=== PATIENT | male | born 1995 ===

== ENCOUNTER 2017-05-17 15:46 | Inpatient (IN) ==
[2017-05-17 16:42] LABS: Basophils % 0.1 %; Eosinophils % 0.2 %; Hematocrit 41.2 % (37.5-50.1); Hemoglobin 13.7 g/dL (12.9-16.9); Immature Granulocytes % 0.3 % (0-4); Lymphocytes # 0.9 K/mcL (0.6-4.6); Lymphocytes % 7.2 %; Mean Corpuscular HGB Conc 33.3 g/dL (31.6-35.5); Mean Corpuscular Hemoglobin 30.9 pg (28.0-33.3); Mean Platelet Volume 9.9 fL (9.4-12.4); Neutrophils # 10.5 K/mcL (1.6-8.9); Platelet Count 252 K/mcL (140-400); Red Blood Count 4.43 M/mcL (4.19-5.50); Red Cell Distribution Width 12.9 % (11.5-14.5); Segmented Neutrophils % 84.2 %
[2017-05-17 16:43] LABS: Bilirubin,Urine Negative (Negative); Blood,Urine Trace (Negative); Clarity,Urine Clear (Clear); Color,Urine Yellow (Yellow); Glucose,Urine (UA) Normal (Normal); Ketones,Urine Trace mg/dL (Negative); Leukocyte Esterase,Urine Negative (Negative); Nitrite,Urine Negative (Negative); Protein,Urine Negative (Neg-Trace); Specific Gravity,Urine 1.021 (1.010-1.025); Urobilinogen,Urine Normal (Normal)
[2017-05-17 16:44] LABS: Bacteria,Urine None Seen per hpf (None-Few); Hyaline Casts,Urine None Seen per lpf (None-Few); RBC,Urine 0-3 per hpf (0-3); Squamous Epithelial Cell,Urine Moderate per lpf (None-Few); WBC,Urine 0-3 per hpf (0-3)
[2017-05-17 17:01] LABS: Alanine Aminotransferase 23 Units/L (0-55); Albumin 3.8 g/dL (3.5-5.0); Albumin/Globulin Ratio 0.8 (1.1-2.2); Alkaline Phosphatase 144 Units/L (38-126); Aspartate Amino Transferase 20 Units/L (5-34); BUN/Creatinine Ratio 13 (6-26); Bilirubin,Direct 0.3 mg/dL (0.0-0.5); Bilirubin,Indirect 0.3 mg/dL (0.0-1.2); Bilirubin,Total 0.6 mg/dL (0.2-1.2); Blood Urea Nitrogen 12 mg/dL (8-26); Carbon Dioxide 25 mEq/L (19-29); Chloride 102 mEq/L (98-109); Globulin 4.7 g/dL (2.4-3.5); Glucose 107 mg/dL (70-99); Lipase 17 Units/L (8-78); Osmolality,Calculated 284 (280-300); Potassium 3.9 mEq/L (3.5-4.5); Sodium 137 mEq/L (136-145); Total Protein 8.5 g/dL (6.0-8.3); eGFR For African Americans > 60; eGFR For Non-African Americans > 60
[2017-05-17] MEDS ORDERED: Ondansetron 4 MG/2 ML VIAL IVP ONE (18:32)
[2017-05-17] MEDS ORDERED: Pantoprazole 40 MG VIAL IVP ONE (18:32)
[2017-05-17] MEDS ORDERED: 0.9 % Sodium Chloride 1,000 ML IVC ONE (18:32)
[2017-05-17] MEDS ORDERED: *HR* FentaNYL (PF) 100 MCG/2 ML VIAL IVP ONE (18:34)
[2017-05-17] MEDS ORDERED: Piperacillin/Tazobactam 3.375 GM in D5% in Water (Mini-Bag+) 100 ML IVPB ONE (19:20)
[2017-05-17] MEDS ORDERED: *HR* HYDROmorphone (PF) 1 MG/ML SYRINGE IVP ONE (19:20)
--- NOTE | 2017-05-17 19:20 | Emergency Department Note ---
Disposition Clinical Impression: Acute appendicitis with appendiceal abscess Acute appendicitis Qualifiers: Acute appendicitis type: with localized peritonitis Qualified Code(s): K35.3 - Acute appendicitis with localized peritonitis Disposition: Admitted As Inpatient Condition: Fair Time of Disposition: 20:04 Abdominal Pain HPI - General Chief Complaint: ED Abdominal Pain Stated Complaint: abd pain Time Seen by Provider: 05/17/17 17:24 Source: patient Nursing Notes Reviewed: Yes Vital Signs Reviewed: Yes - History of Present Illness HPI Narrative: Patient is 21-year-old male who presents with right lower quadrant abdominal pain 4 days. Patient states that pain started suddenly while he was at a gym. Patient states she has never had pain like this before. Patient does not speak American. 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 Patient states his pain is 8/10 sharp and constant. Patient complains of anorexia. Last meal was 7:00 this morning. Pain Scale: 8 - Related Data Home Medications Medication Instructions Recorded Confirmed No Known Home Drugs 05/17/17 05/17/17 Allergies Allergy/AdvReac Type Severity Reaction Status Date / Time No Known Allergies Allergy Verified 05/17/17 15:55 All systems ED: reviewed and negative except as stated. Review of Systems: As Per HPI Constitutional: Denies: fever, chills ENT ED: Denies: congestion Cardiovascular: Denies: chest pain, palpitations Respiratory: Denies: cough Gastrointestinal: Reports: abdominal pain, nausea, diarrhea, hematochezia. Denies: vomiting Musculoskeletal: Denies: back pain, neck pain Integumentary: Denies: rash Endocrine: Reports: fatigue Abdominal Pain PMH - Past Medical History Medical history: Reports: no medical history - Social History Smoking status: Never smoker Alcohol use: Reports: occasionally Drug use: Reports: none Physical Exam Vital Signs Temperature 98.8 F 05/17/17 15:48 Pulse Rate 95 05/17/17 15:48 Respiratory Rate 18 05/17/17 15:48 Blood Pressure 113/73 05/17/17 15:48 O2 Sat by Pulse Oximetry 100 05/17/17 15:48 Temperature 98.8 F 05/17/17 15:48 Pulse Rate 98 05/17/17 19:41 Respiratory Rate 18 05/17/17 19:41 Blood Pressure 117/73 05/17/17 19:41 O2 Sat by Pulse Oximetry 99 05/17/17 19:41 Oxygen Delivery Oxygen Delivery Room Air Patient is a 21-year-old male who is alert and oriented 3 and is laying in the bed still and has a sense of apprehension on his face. Patient is nontoxic appearing, patient is currently afebrile and not tachycardic or hypotensive. Abdominal exam: Bowel sounds present, abdomen rigid to palpation on the right side, and patient has muscular and is guarding. - General Limitations: no limitations General appearance: alert, in no apparent distress - Head Head exam: atraumatic, normocephalic, normal inspection - Eye Eye exam: Present: normal appearance, PERRL, EOMI - ENT ENT exam: normal exam, normal oropharynx, mucous membranes moist - Neck Neck exam: Present: normal inspection, full ROM, trachea midline - Chest Chest inspection: Present: normal inspection, symmetric chest wall rise - Respiratory Respiratory exam: Present: normal lung sounds bilaterally - Cardiovascular Cardiovascular exam: Present: regular rate, normal rhythm, normal heart sounds - Abdominal Exam Abdominal exam: Present: soft, tenderness, guarding, rigidity (Right-side of abdomen), normal bowel sounds, hyperactive bowel sounds. Absent: distention, rebound - Extremities Exam Extremities exam: Present: normal inspection, full ROM. Absent: tenderness, pedal edema, joint swelling, calf tenderness - Back Exam Back exam: Present: normal inspection, full ROM. Absent: tenderness, CVA tenderness (R), CVA tenderness (L) - Neurological Exam Neurological exam: Present: alert, oriented X3 - Psychiatric Psychiatric exam: Present: normal affect, normal mood - Skin Skin exam: Present: warm, dry, intact, normal color Course - Consultations Consultation #1: Dr. Khan of Gen. surgery was consulted for ruptured appendix with large abscess in the right lower quadrant. He states to admit to medicine and have them consult him for orders. Time: 19:22 Vital Signs Temperature 98.8 F 05/17/17 15:48 Pulse Rate 95 05/17/17 15:48 Respiratory Rate 18 05/17/17 15:48 Blood Pressure 113/73 05/17/17 15:48 O2 Sat by Pulse Oximetry 100 05/17/17 15:48 Temperature 98.8 F 05/17/17 15:48 Pulse Rate 98 05/17/17 19:41 Respiratory Rate 18 05/17/17 19:41 Blood Pressure 117/73 05/17/17 19:41 O2 Sat by Pulse Oximetry 99 05/17/17 19:41 Oxygen Delivery Oxygen Delivery Room Air Abdominal Pain - MDM Narrative Medical decision making narrative: Patient presents with right lower quadrant abdominal pain onset 4 days ago. Patient has a rigid right sided abdomen. CT abdomen and pelvis shows Abdomen/Pelvis CT 05/17/17 18:57 IMPRESSION: Extensive inflammatory changes in the right lower quadrant involving the appendix and likely the cecum. Acute appendicitis is likely. It is difficult to distinguish between the cecum and appendix as there is a large phlegmonous mass in this area and possible fluid collection which is difficult to distinguish between a patulous cecum versus abscess. Without GI contrast this area is difficult to evaluate. Some free fluid can be seen in the pelvis. D/ / 05/17/2017 19:37:46 Isabel Larson MD / karen Interpreting Provider: MD Dr. Erin Estrada of Gen. surgery was consulted and has directed patient to be admitted to medicine. He states to have the floor consult him for any orders. Patient needs a recreation therapy director secondary to being king [place] Romansh speaker only. Patient has been told of the results of his workup and accepts decision for admission. Romansh-speaking emergency response technician at bedside. Patient is accepted for admission by Dr. Sen the hospitalist - Lab Data Lab results reviewed: Yes I reviewed the patient's lab results. Lab results narrative: Short CBC 05/17/17 Range/Units 16:25 WBC 12.4 H (4.3-11.1) K/mcL Hgb 13.7 (12.9-16.9) g/dL Hct 41.2 (37.5-50.1) % Plt Count 252 (140-400) K/mcL Neutrophils # 10.5 H (1.6-8.9) K/mcL BMP 05/17/17 Range/Units 16:25 Sodium 137 (136-145) mEq/L Potassium 3.9 (3.5-4.5) mEq/L Chloride 102 (98-109) mEq/L Carbon Dioxide 25 (19-29) mEq/L BUN 12 (8-26) mg/dL Creatinine 0.90 (0.72-1.25) mg/dL Glucose 107 H (70-99) mg/dL Calcium 10.0 (8.6-10.8) mg/dL Liver Function 05/17/17 Range/Units 16:25 Total Bilirubin 0.6 (0.2-1.2) mg/dL Direct Bilirubin 0.3 (0.0-0.5) mg/dL AST 20 (5-34) Units/L ALT 23 (0-55) Units/L Alkaline Phosphatase 144 H (38-126) Units/L Albumin 3.8 (3.5-5.0) g/dL Urine 05/17/17 Range/Units 16:30 Urine Color Yellow (Yellow) Urine Clarity Clear (Clear) Urine pH 6.0 (5.0-8.0) pH Units Ur Specific Vivian 1.021 (1.010-1.025) Urine Protein Negative (Neg-Trace) mg/dL Urine Glucose (UA) Normal (Normal) mg/dL Result diagrams: 05/17/17 16:25 05/17/17 16:25 Lab Results 05/17/17 05/17/17 05/17/17 Range/Units 16:25 16:25 16:30 WBC 12.4 H (4.3-11.1) K/mcL RBC 4.43 (4.19-5.50) M/mcL Hgb 13.7 (12.9-16.9) g/dL Hct 41.2 (37.5-50.1) % MCV 93.0 (83.0-100.0) fL MCH 30.9 (28.0-33.3) pg MCHC 33.3 (31.6-35.5) g/dL RDW 12.9 (11.5-14.5) % Plt Count 252 (140-400) K/mcL MPV 9.9 (9.4-12.4) fL Immature Gran % 0.3 (0-4) % Seg Neutrophils % 84.2 % Lymphocytes % 7.2 % Monocytes % 8.0 % Eosinophils % 0.2 % Basophils % 0.1 % Neutrophils # 10.5 H (1.6-8.9) K/mcL Lymphocytes # 0.9 (0.6-4.6) K/mcL Monocytes # 1.0 (0.0-1.3) K/mcL Eosinophils # 0.0 (0.0-0.6) K/mcL Basophils # 0.0 (0.0-0.2) K/mcL Sodium 137 (136-145) mEq/L Potassium 3.9 (3.5-4.5) mEq/L Chloride 102 (98-109) mEq/L Carbon Dioxide 25 (19-29) mEq/L BUN 12 (8-26) mg/dL Creatinine 0.90 (0.72-1.25) mg/dL Est GFR ( Amer) > 60 Est GFR (Non-Af Amer) > 60 BUN/Creatinine Ratio 13 (6-26) Glucose 107 H (70-99) mg/dL Calculated Osmolality 284 (280-300) Calcium 10.0 (8.6-10.8) mg/dL Total Bilirubin 0.6 (0.2-1.2) mg/dL Direct Bilirubin 0.3 (0.0-0.5) mg/dL Indirect Bilirubin 0.3 (0.0-1.2) mg/dL AST 20 (5-34) Units/L ALT 23 (0-55) Units/L Alkaline Phosphatase 144 H (38-126) Units/L Serum Total Protein 8.5 H (6.0-8.3) g/dL Albumin 3.8 (3.5-5.0) g/dL Globulin 4.7 H (2.4-3.5) g/dL Albumin/Globulin Ratio 0.8 L (1.1-2.2) Lipase 17 (8-78) Units/L Urine Color Yellow (Yellow) Urine Clarity Clear (Clear) Urine pH 6.0 (5.0-8.0) pH Units Ur Specific Vivian 1.021 (1.010-1.025) Urine Protein Negative (Neg-Trace) mg/dL Urine Glucose (UA) Normal (Normal) mg/dL Urine Ketones Trace H (Negative) mg/dL Urine Blood Trace H (Negative) Urine Nitrite Negative (Negative) Urine Bilirubin Negative (Negative) Urine Urobilinogen Normal (Normal) mg/dL Ur Leukocyte Esterase Negative (Negative) Urine Microscopic RBC 0-3 (0-3) per hpf Urine Microscopic WBC 0-3 (0-3) per hpf Ur Squamous Epith Cells Moderate H (None-Few) per lpf Urine Bacteria None Seen (None-Few) per hpf Hyaline Casts None Seen (None-Few) per lpf Ur Culture Indicated? NO (NO) - Radiology Data Radiology results reviewed: Yes I reviewed the patient's radiology results. Abdomen/Pelvis CT 05/17/17 18:57 IMPRESSION: Extensive inflammatory changes in the right lower quadrant involving the appendix and likely the cecum. Acute appendicitis is likely. It is difficult to distinguish between the cecum and appendix as there is a large phlegmonous mass in this area and possible fluid collection which is difficult to distinguish between a patulous cecum versus abscess. Without GI contrast this area is difficult to evaluate. Some free fluid can be seen in the pelvis. D/ / 05/17/2017 19:37:46 Isabel Larson MD / karen Interpreting Provider: Isabel Larson MD Attestation Statement - Attestation Attestation: I, Calderon Liu DO, examined this patient [id number] and my medical decision-making was reviewed with Dr. Milton Gannon, Resident Physician. I agree with the documented findings, disposition and treatment plan as described except to the extent set forth below. Please see my progress notes for details.
--- NOTE | 2017-05-17 19:37 | Emergency Department Note ---
START Narrative - START START: Patient seen and examined the time arrival. Pt presents here for abdominal pain for the last four days. pt has been having pain, anorexia, n/v, and fevers at home. pt is and speaks no northern irish. Patient through spanish interpreter had discussion and review of the medical history and presentation. Right lower quadrant abdominal pain noted. Concern for appendicitis appreciated on exam. Otherwise his examination is unremarkable. First doses of IV antibiotics to be started at the request of the surgeon on the floor. Physical exam is otherwise unremarkable. CT imaging confirms a large ruptured abscess with inflammation and stranding in the right lower quadrant of the abdomen. Labs to be reviewed. See detailed documentation of consultations, physical exam, medical intervention, medical decision-making and disposition and resident physician's note. Admission process to be complete at this time a consultation to the hospitalist
--- NOTE | 2017-05-17 23:00 | General Surg History&Physical ---
Date of Encounter: 05/17/17 Time of Encounter: 10:50 Assessment and Plan (1) Acute appendicitis with appendiceal abscess Current Visit: Yes Status: Acute The assessment and plan as outlined above was discussed with the patient and/or family members who expressed understanding and agreement. All questions were answered. The patient will be admitted for IV antibiotics and pain control. He will require interventional radiology drainage of the periappendiceal abscess tomorrow. He will require interval appendectomy in 6-8 weeks. History of Present Illness Chief complaint: Abdominal pain HPI: Mr. Malik is a 21 year old male Does not speak South African. He has experienced 5 days of worsening abdominal pain. He sought evaluation in the emergency room. A CAT scan demonstrated a 5 cm periappendiceal abscess. He is now admitted for IV antibiotic therapy and likely in interventional radiology drainage procedure tomorrow. An baker bench was present throughout the examination. The patient sure no other nucleus significant information. Past Med Surg Social Fam HX - Past Medical History Medical history: no medical history - Social History Smoking Status: Never smoker Smokeless Tobacco Status: No Alcohol use: occasionally Drug use: none Medications and Allergies No Known Home Drugs 05/17/17 [History] 3 Allergy/AdvReac Type Severity Reaction Status Date / Time No Known Allergies Allergy Verified 05/17/17 15:55 Review of Systems All systems PM: A 10-system review of systems was performed and is negative for pertinent findings except as documented above in the HPI. General Surgery Exam Initial Vital Signs Temp Pulse Resp BP Pulse Ox 98.8 F 95 18 113/73 100 05/17/17 15:48 05/17/17 15:48 05/17/17 15:48 05/17/17 15:48 05/17/17 15:48 - General physical appearance well developed, well nourished, no distress - Neck no masses, no bruits, trachea midline, no lymphadectomy, no venous distension - Respiratory normal expansion, normal respiratory effort, clear to percussion, clear to auscultation - Cardiovascular Cardiovascular exam: Present: RRR, 15, 16 - Abdomen Abdomen general surgery: Present: guarding, rebound Abdominal Tenderness: Present: RLQ - Neurologic Present: CN 2-12 grossly intact, normal coordination, normal sensation - Psychiatric Psychiatric general surgery: Present: appropriate, oriented to person, oriented to place, oriented to time, speech is normal, memory intact Results - Labs 05/17/17 16:25 05/17/17 16:25 Abnormal lab results WBC 12.4 K/mcL (4.3-11.1) H 05/17/17 16:25 Neutrophils # 10.5 K/mcL (1.6-8.9) H 05/17/17 16:25 Glucose 107 mg/dL (70-99) H 05/17/17 16:25 Alkaline Phosphatase 144 Units/L (38-126) H 05/17/17 16:25 Serum Total Protein 8.5 g/dL (6.0-8.3) H 05/17/17 16:25 Globulin 4.7 g/dL (2.4-3.5) H 05/17/17 16:25 Albumin/Globulin Ratio 0.8 (1.1-2.2) L 05/17/17 16:25 Urine Ketones Trace mg/dL (Negative) H 05/17/17 16:30 Urine Blood Trace (Negative) H 05/17/17 16:30 Ur Squamous Epith Cells Moderate per lpf (None-Few) H 05/17/17 16:30 All other labs normal. - Imaging CT scan - abdomen: image reviewed (I personally reviewed the CAT scan of the abdomen. He clearly has a 5 cm abscess in the periappendiceal area.)
[2017-05-18] MEDS: MetroNIDAZOLE 500 MG/100 ML 500 MG/100 ML BAG IVPB SCH ×4 (00:31→16:59)
[2017-05-18] MEDS: Piperacillin/Tazobactam 3.375 GM in D5% in Water (Mini-Bag+) 100 ML IVPB SCH ×4 (00:32→16:59)
[2017-05-18] MEDS: 0.9 % Sodium Chloride 1,000 ML IVC SCH ×3 (00:32→20:55)
[2017-05-18] MEDS: *HR* HYDROmorphone (PF) 1 MG/ML SYRINGE IVP PRN ×8 (00:33→20:55)
--- NOTE | 2017-05-18 01:55 | Internal Med History&Physical ---
Date of Encounter: 05/18/17 Time of Encounter: 02:05 Assessment and Plan (1) Acute appendicitis with appendiceal abscess Current visit: Yes Status: Acute We will start the patient on Zosyn. Surgery have already seen the patient and arranging for interventional radiology guided aspiration, followed by interval appendectomy. Pain control, hydration, keep NPO. He is hemodynamically stable. Heparin and famotidine for DVT and PUD prophylaxis. Internal Medicine - H&P: HPI Chief complaint: abdominal pain History of present illness: Mr. Malik is a 21 year old male who presented to the emergency room today with a main complain of abdominal pain. For the past 5 days patient has been complaining of pain mainly in the right lower quadrant worsens with movement or coughing. This has been associated with anorexia nausea fever and chills. Patient has been having a couple stools every day. CT scan performed in the emergency room showed Concern for appendicular abscess. Patient denies any other medical problems. Past Med Surg Social Fam HX - Past Medical History Medical history: no medical history - Social History Smoking Status: Never smoker Smokeless Tobacco Status: No Alcohol use: occasionally Drug use: none - Family History Mother Living Status: Still Living Father Living Status: Still Living Internal Medicine - H&P: Meds No Known Home Drugs 05/17/17 [History] 3 Allergy/AdvReac Type Severity Reaction Status Date / Time No Known Allergies Allergy Verified 05/17/17 15:55 All Systems PM: A 10-system review of systems was performed and is negative for pertinent findings except as documented above in the HPI. Review of systems: 10 point review of systems is negative except for HPI - Constitutional Vitals: Temp Pulse Resp BP Pulse Ox 99.6 F 105 18 118/75 99 05/17/17 21:21 05/17/17 21:21 05/17/17 21:21 05/17/17 21:21 05/17/17 21:21 Exam: Gen.: patient is alert oriented times 3 not in distress. Cardiac: normal S1 S2 no additional sounds or murmurs chest: fair air entry. no active wheezing. No crackles or bronchial breathing. abdomen: guarding and tenderness in RLQ. neuro: no focal deficit Internal Med - H&P Results - Labs CBC & Chem 7: 05/17/17 16:25 05/17/17 16:25
[2017-05-18 03:14] LABS: Basophils % 0.2 %; Eosinophils % 0.3 %; Hematocrit 38.8 % (37.5-50.1); Immature Granulocytes % 0.4 % (0-4); Immature Platelets 3.9 % (1.1-6.1); Lymphocytes # 1.2 K/mcL (0.6-4.6); Lymphocytes % 9.7 %; Mean Corpuscular HGB Conc 33.5 g/dL (31.6-35.5); Mean Corpuscular Hemoglobin 30.9 pg (28.0-33.3); Mean Corpuscular Volume 92.2 fL (83.0-100.0); Mean Platelet Volume 10.4 fL (9.4-12.4); Monocytes # 1.5 K/mcL (0.0-1.3); Monocytes % 11.7 %; Neutrophils # 9.7 K/mcL (1.6-8.9); Platelet Count 251 K/mcL (140-400); Red Blood Count 4.21 M/mcL (4.19-5.50); Segmented Neutrophils % 77.7 %
[2017-05-18] MEDS: Ondansetron 4 MG/2 ML VIAL IVP PRN ×2 (05:36→14:20)
[2017-05-18] MEDS ORDERED: *HR* Morphine 2 MG/ML SYRINGE IVP PRN (07:45)
[2017-05-18] MEDS ORDERED: *HR* HYDROmorphone (PF) 1 MG/ML SYRINGE IVP PRN (07:45)
--- NOTE | 2017-05-18 07:53 | Internal Med Progress Note ---
Date of Encounter: 05/18/17 Time of Encounter: 07:51 - Assessment and plan (1) Acute appendicitis with appendiceal abscess Current Visit: Yes Status: Acute Assessment and plan: Cont empirical abx Zosyn Since he is already on Zosyn, may not need Flagyl..will talk to surgeon about this scheduled for IR drainage today WBC still slightly elevated Cont close monitoring Surgery on board adjusted the pain meds Cont symptomatic and supportive care - Subjective Interval history: Mr. Malik is a 21 year old male who presented to the emergency room with a main complain of abdominal pain. For the past 5 days patient has been complaining of pain mainly in the right lower quadrant worsens with movement or coughing. This has been associated with anorexia nausea fever and chills. Patient has been having a couple stools every day. CT scan performed in the emergency room showed Concern for appendicular abscess. Patient is seen seen and examined at bed side. he is turkish speaking only. His abdominal pain is tolerable with current pain meds - Constitutional Vitals: Temp Pulse Resp BP Pulse Ox 102.6 F H 102 18 116/65 97 05/18/17 06:58 05/18/17 06:58 05/18/17 06:58 05/18/17 06:58 05/18/17 06:58 General appearance: Present: A&O X 3 - Head Head exam: Present: atraumatic, normal inspection - Respiratory Respiratory exam: Present: CTAB. Absent: accessory muscle use, rales, rhonchi, wheezes - Cardiovascular Cardiovascular exam: Present: RRR, +S1, +S2. Absent: diastolic murmur, gallop, rubs, systolic murmur - GI/Abdominal GI/Abdominal exam: Present: normal bowel sounds, soft, tenderness (RLQ). Absent : guarding, rebound, rigid - Back Exam Back exam: Absent: CVA tenderness (L), CVA tenderness (R) - Psychiatric Psychiatric exam: Present: normal affect, normal mood Internal Medicine: Result - Labs CBC & Chem 7: 05/18/17 02:25 05/17/17 16:25 Labs: Short CBC 05/18/17 Range/Units 02:25 WBC 12.5 H (4.3-11.1) K/mcL Hgb 13.0 (12.9-16.9) g/dL Hct 38.8 (37.5-50.1) % Plt Count 251 (140-400) K/mcL Neutrophils # 9.7 H (1.6-8.9) K/mcL Consult Discharge Plan - Plan Referrals: NONE,PCP [Primary Care Provider] -
[2017-05-18] MEDS ORDERED: *HR* HYDROmorphone (PF) 1 MG/ML SYRINGE IVP ONE (10:02)
[2017-05-18] MEDS ORDERED: *HR* FentaNYL (PF) 100 MCG/2 ML VIAL IVP PRN (11:04)
[2017-05-18] MEDS ORDERED: *HR* Midazolam HCl 2 MG/2 ML VIAL IVP PRN (11:04)
--- NOTE | 2017-05-18 11:06 | Pre-Sedation Evaluation ---
Pre-sedation evaluation - Pre-sedation checklist Date of procedure: 05/18/17 Procedure: CT guided drainage abscess Recent Vitals: Last Vital Signs Temp 99.7 F H 05/18/17 08:55 Pulse 102 05/18/17 06:58 Resp 18 05/18/17 06:58 BP 116/65 05/18/17 06:58 Pulse Ox 97 05/18/17 06:58 Dietary Status: NPO after Midnight ASA Classification *see protocol: CLASS I-Normal, healthy patient Plan of Care: Pt appropriate candidate for procedure/moderate/conscious sedation , Risks/benefits of procedure/sedation discussed w/ patient/family
--- NOTE | 2017-05-18 11:07 | General Surgery Progress Note ---
<Trudy Narvaez - Last Filed: 05/18/17 11:31> Date of Encounter: 05/18/17 Time of Encounter: 10:00 - Assessment and Plan (1) Acute appendicitis with appendiceal abscess Current Visit: Yes Status: Acute Febrile overnight up to 102.6F with intermittent tachycardia. BP within normal limts. Interventional radiology drainage of the periappendiceal abscess today. Currently on Zosyn and Flagyl. He will require interval appendectomy in 6-8 weeks. (2) DVT prophylaxis Current Visit: Yes Status: Acute IPCD Subjective Narrative: Patient presented with 5 days of abdominal pain and was found to have appendicitis abscess. Patient has not had any N/V but is still having pain 12/09. Objective Vital Signs - Last 8 Hours Temp Pulse Resp BP Pulse Ox 05/18/17 08:55 99.7 F H 05/18/17 06:58 102.6 F H 102 18 116/65 97 05/18/17 04:30 99.3 F 89 14 124/76 98 Intake and Output 05/17/17 05/18/17 05/18/17 23:59 07:59 15:59 Intake Total 200 / 200 1000 / 1000 Output Total 0 / 0 450 / 450 Balance 200 / 200 550 / 550 Intake: IV Fluids 200 / 200 1000 / 1000 0.9 % Sodium Chloride 1,000 ML 1000 / 1000 @ 100 mls/hr IVC .Q10H [facility] Rx#: [id number] Flagyl Premix 500 MG/100 ML 500 100 / 100 mg In 100 ml @ 100 mls/hr IVPB Q6HR [facility] Rx#:[id number] Zosyn 3.375 GM In Dextrose 5% ( 100 / 100 Minibag+) 100 ML 100 ML @ 25 mls/hr IVPB Q6HR [facility] Rx#: [id number] Oral 0 / 0 Output: Urine 0 / 0 450 / 450 Other: Meal NPO Breakfast Weight 70.307 kg Blood Glucose* 94 Patient Weight 05/18/17 23:59 Weight 70.307 kg - Additional Exam Constitutional: Alert, in no acute distress, well nourished, well developed. Head: Normocephalic, atraumatic, normal contour and symmetric, no masses, lesions or scars Heart: Normal, regular rate and rhythm, no murmurs Lungs: Clear to auscultation, no wheezes, rales, or rhonchi Abdomen: tenderness in RLQ, Soft, nondistended,, and no masses palpable, bowel sounds present and normal, no guarding or rigidity. Extremities: No clubbing, cyanosis, or edema, radial pulse +2/4, capillary refill <2sec. Skin: Skin warm and dry, no lesions, no rashes, no jaundice Neurologic: Cranial nerves II through XII grossly intact, no focal deficits, strength within normal limits in all extremities Psych: Cooperative with exam, good eye contact, cognitive function intact, judgment good insight good, speech clear, thought process logical, and goal directed - Labs 05/18/17 02:25 05/17/17 16:25 - VTE Documentation of Mechanical Device: Intermittent pneumatic compression device Consult Discharge Plan - Plan Referrals: NONE,PCP [Primary Care Provider] - <Johnny Khan - Last Filed: 05/18/17 12:09> Date of Encounter: 05/18/17 - Assessment and Plan (1) Acute appendicitis with appendiceal abscess Current Visit: Yes Status: Acute Objective Vital Signs - Last 8 Hours Temp Pulse Resp BP Pulse Ox 05/18/17 11:23 94 22 111/70 95 05/18/17 11:20 100 16 113/76 95 05/18/17 11:14 87 11 104/56 05/18/17 11:11 84 85 120/54 97 05/18/17 08:55 99.7 F H 05/18/17 06:58 102.6 F H 102 18 116/65 97 05/18/17 04:30 99.3 F 89 14 124/76 98 Intake and Output 05/17/17 05/18/17 05/18/17 23:59 07:59 15:59 Intake Total 300 / 300 1000 / 1000 Output Total 0 / 0 450 / 450 Balance 300 / 300 550 / 550 Intake: IV Fluids 300 / 300 1000 / 1000 0.9 % Sodium Chloride 1,000 ML 1000 / 1000 @ 100 mls/hr IVC .Q10H [facility] Rx#: [id number] Flagyl Premix 500 MG/100 ML 500 200 / 200 mg In 100 ml @ 100 mls/hr IVPB Q6HR [facility] Rx#:[id number] Zosyn 3.375 GM In Dextrose 5% ( 100 / 100 0 / 0 Minibag+) 100 ML 100 ML @ 25 mls/hr IVPB Q6HR [facility] Rx#: [id number] Oral 0 / 0 Output: Urine 0 / 0 450 / 450 Other: Meal NPO Breakfast Weight 70.307 kg Blood Glucose* 94 Patient Weight 05/18/17 23:59 Weight 70.307 kg - Labs 05/18/17 02:25 05/17/17 16:25 - Attending Attestation I examined this patient and my medical decision-making was reviewed with the Resident Physician. I agree with the documented findings, disposition and treatment plan as described except to the extent set forth below. The patient is seen and evaluated or rales. He will have interventional radiology drain the periappendiceal abscess today. He will require convalescent And 6-8 weeks. Johnny Khan MD FACS
[2017-05-18] MEDS ORDERED: *HR* FentaNYL (PF) 100 MCG/2 ML VIAL ONE (11:11)
[2017-05-18] MEDS ORDERED: 0.9 % Sodium Chloride 500 ML ONE (11:11)
[2017-05-18] MEDS ORDERED: *HR* Midazolam HCl 2 MG/2 ML VIAL ONE (11:11)
--- NOTE | 2017-05-18 11:27 | IR Procedure Note ---
Date of procedure: 05/18/17 Consent Obtained: Written consent Timeout: Correct patient and procedure verified, Correct site verified, Time out performed, Skin prep completed Local anesthetic: Lidocaine 1% Indications: Appendiceal abscess Procedure Performed: CT guided drainage Results/Findings: 10F APD appendiceal abscess, 40m thick pus removed Complications: None; Tolerated procedure well (Monitor on floor)
[2017-05-19] MEDS: Piperacillin/Tazobactam 3.375 GM in D5% in Water (Mini-Bag+) 100 ML IVPB SCH ×4 (01:00→20:20)
[2017-05-19] MEDS: MetroNIDAZOLE 500 MG/100 ML 500 MG/100 ML BAG IVPB SCH ×4 (01:05→18:13)
[2017-05-19] MEDS: *HR* HYDROmorphone (PF) 1 MG/ML SYRINGE IVP PRN ×7 (05:24→18:14)
[2017-05-19] MEDS: 0.9 % Sodium Chloride 1,000 ML IVC SCH ×2 (05:25→16:40)
[2017-05-19 05:56] LABS: Basophils % 0.2 %; Eosinophils % 0.3 %; Hematocrit 38.8 % (37.5-50.1); Hemoglobin 12.7 g/dL (12.9-16.9); Immature Granulocytes % 0.3 % (0-4); Lymphocytes # 1.3 K/mcL (0.6-4.6); Mean Corpuscular HGB Conc 32.7 g/dL (31.6-35.5); Mean Corpuscular Hemoglobin 30.2 pg (28.0-33.3); Mean Corpuscular Volume 92.4 fL (83.0-100.0); Mean Platelet Volume 10.1 fL (9.4-12.4); Monocytes # 1.2 K/mcL (0.0-1.3); Monocytes % 10.2 %; Neutrophils # 9.5 K/mcL (1.6-8.9); Platelet Count 277 K/mcL (140-400); Red Cell Distribution Width 13.4 % (11.5-14.5)
[2017-05-19 06:01] LABS: BUN/Creatinine Ratio 8 (6-26); Blood Urea Nitrogen 7 mg/dL (8-26); Calcium 9.2 mg/dL (8.6-10.8); Carbon Dioxide 24 mEq/L (19-29); Chloride 103 mEq/L (98-109); Glucose 108 mg/dL (70-99); Osmolality,Calculated 279 (280-300); Potassium 3.5 mEq/L (3.5-4.5); Sodium 135 mEq/L (136-145); eGFR For African Americans > 60; eGFR For Non-African Americans > 60
[2017-05-19] MEDS: Ondansetron 4 MG/2 ML VIAL IVP PRN ×2 (07:50→16:41)
--- NOTE | 2017-05-19 08:13 | General Surgery Progress Note ---
<Trudy Narvaez - Last Filed: 05/19/17 08:10> Date of Encounter: 05/19/17 Time of Encounter: 06:45 - Assessment and Plan (1) Acute appendicitis with appendiceal abscess Current Visit: Yes Status: Acute Febrile yesterday afternoon to 102.9F with intermittent tachycardia. BP within normal limts. Interventional radiology placed CT guided drain of the periappendiceal abscess and gram stain showed gram positive cocci and gram negative rods. Currently on Zosyn and Flagyl. He will require interval appendectomy in 6-8 weeks. Plan: - Diet: advance to fulls - Social work involved - continue antibiotics Zosyn and Flagyl (started 05/17/17) - cultures pending (2) DVT prophylaxis Current Visit: Yes Status: Acute IPCD Subjective Narrative: Patient presented with 5 days of abdominal pain and was found to have appendicitis abscess and is now s/p drain insertion. Today, patient is feeling better than he was yesterday with less pain. Denies N/ V. Objective Vital Signs - Last 8 Hours Temp Pulse Resp BP Pulse Ox 05/19/17 06:24 98.6 F 87 16 101/62 93 05/19/17 02:57 99.2 F 107 18 101/61 94 Intake and Output 05/18/17 05/19/17 05/19/17 23:59 07:59 15:59 Intake Total 1560 / 1560 1200 / 1200 Output Total 20 / 20 Balance 1560 / 1560 1180 / 1180 Intake: IV Fluids 1200 / 1200 1200 / 1200 0.9 % Sodium Chloride 1,000 ML 1000 / 1000 1000 / 1000 @ 100 mls/hr IVC .Q10H [facility] Rx#: [id number] Flagyl Premix 500 MG/100 ML 500 100 / 100 100 / 100 mg In 100 ml @ 100 mls/hr IVPB Q6HR [facility] Rx#:[id number] Zosyn 3.375 GM In Dextrose 5% ( 100 / 100 100 / 100 Minibag+) 100 ML 100 ML @ 25 mls/hr IVPB Q6HR [facility] Rx#: [id number] Oral 360 / 360 Output: Wound Drainage 20 / 20 Right Lower Abdomen 20 / 20 Other: Meal CLEAR LIQUID # Voids 1 # Bowel Movements 0 Weight 67.7 kg Patient Weight 05/19/17 23:59 Weight 67.7 kg - Additional Exam Constitutional: Alert, in no acute distress, well nourished, well developed. Head: Normocephalic, atraumatic, normal contour and symmetric, no masses, lesions or scars Heart: Normal, regular rate and rhythm, no murmurs Lungs: Clear to auscultation, no wheezes, rales, or rhonchi Abdomen: tenderness in RLQ, drain present in RLQ with serosanguinous fluid drainage of 55ml since placement, Soft, nondistended, and no masses palpable, bowel sounds present and normal, no guarding or rigidity. Extremities: No clubbing, cyanosis, or edema, radial pulse +2/4, capillary refill <2sec. Skin: Skin warm and dry, no lesions, no rashes, no jaundice Neurologic: Cranial nerves II through XII grossly intact, no focal deficits, strength within normal limits in all extremities Psych: Cooperative with exam, good eye contact, cognitive function intact, judgment good insight good, speech clear, thought process logical, and goal directed - Labs 05/19/17 04:54 05/19/17 04:54 Diabetes panel 05/19/17 Range/Units 04:54 Sodium 135 L (136-145) mEq/L Potassium 3.5 (3.5-4.5) mEq/L Chloride 103 (98-109) mEq/L Carbon Dioxide 24 (19-29) mEq/L BUN 7 L (8-26) mg/dL Creatinine 0.90 (0.72-1.25) mg/dL Glucose 108 H (70-99) mg/dL Calcium 9.2 (8.6-10.8) mg/dL Calcium panel 05/19/17 Range/Units 04:54 Calcium 9.2 (8.6-10.8) mg/dL Pituitary panel 05/19/17 Range/Units 04:54 Sodium 135 L (136-145) mEq/L Potassium 3.5 (3.5-4.5) mEq/L Chloride 103 (98-109) mEq/L Carbon Dioxide 24 (19-29) mEq/L BUN 7 L (8-26) mg/dL Creatinine 0.90 (0.72-1.25) mg/dL Glucose 108 H (70-99) mg/dL Calcium 9.2 (8.6-10.8) mg/dL Adrenal panel 05/19/17 Range/Units 04:54 Sodium 135 L (136-145) mEq/L Potassium 3.5 (3.5-4.5) mEq/L Chloride 103 (98-109) mEq/L Carbon Dioxide 24 (19-29) mEq/L BUN 7 L (8-26) mg/dL Creatinine 0.90 (0.72-1.25) mg/dL Glucose 108 H (70-99) mg/dL Calcium 9.2 (8.6-10.8) mg/dL - VTE Documentation of Mechanical Device: Intermittent pneumatic compression device Consult Discharge Plan - Plan Referrals: NONE,PCP [Primary Care Provider] - <Aline Khann Martha - Last Filed: 05/20/17 08:54> Date of Encounter: 05/19/17 - Assessment and Plan (1) Acute appendicitis with appendiceal abscess Current Visit: Yes Status: Acute Objective Vital Signs - Last 8 Hours Temp Pulse Resp BP Pulse Ox 05/20/17 07:38 97.9 F 75 16 112/68 95 05/20/17 04:30 99.3 F 89 15 111/61 95 Intake and Output 05/19/17 05/20/17 05/20/17 23:59 07:59 15:59 Intake Total 680 / 680 1700 / 1700 Output Total 600 / 600 640 / 640 Balance 80 / 80 1060 / 1060 Intake: IV Fluids 200 / 200 1200 / 1200 0.9 % Sodium Chloride 1,000 ML 1000 / 1000 @ 100 mls/hr IVC .Q10H [facility] Rx#: [id number] Flagyl Premix 500 MG/100 ML 500 100 / 100 200 / 200 mg In 100 ml @ 100 mls/hr IVPB Q6HR [facility] Rx#:[id number] Zosyn 3.375 GM In Dextrose 5% ( 100 / 100 Minibag+) 100 ML 100 ML @ 25 mls/hr IVPB Q8H [facility] Rx#: [id number] Oral 480 / 480 500 / 500 Output: Urine 600 / 600 600 / 600 Wound Drainage 40 / 40 Right Lower Abdomen 40 / 40 Other: Meal Full Weight 67.5 kg Patient Weight 05/20/17 23:59 Weight 67.5 kg - Labs 05/20/17 05:33 05/19/17 04:54 - Attending Attestation I examined this patient and my medical decision-making was reviewed with the Resident Physician. I agree with the documented findings, disposition and treatment plan as described except to the extent set forth below. The patient is seen and evaluated on morning rounds with the resident. His pain is improved. We will continue CAT scan drainage and antibiotic therapy Johnny Khan MD FACS
[2017-05-19] MEDS: *HR* OxyCODONE/APAP 10/325 TABLET PO PRN (20:20)
[2017-05-20] MEDS: MetroNIDAZOLE 500 MG/100 ML 500 MG/100 ML BAG IVPB SCH ×5 (00:18→23:27)
[2017-05-20] MEDS: 0.9 % Sodium Chloride 1,000 ML IVC SCH ×2 (03:39→14:38)
[2017-05-20] MEDS: *HR* OxyCODONE/APAP 10/325 TABLET PO PRN (03:39)
[2017-05-20] MEDS: Piperacillin/Tazobactam 3.375 GM in D5% in Water (Mini-Bag+) 100 ML IVPB SCH ×3 (03:40→19:36)
[2017-05-20 05:52] LABS: Basophils % 0.2 %; Eosinophils # 0.2 K/mcL (0.0-0.6); Eosinophils % 1.6 %; Hematocrit 37.4 % (37.5-50.1); Hemoglobin 12.2 g/dL (12.9-16.9); Immature Granulocytes % 0.3 % (0-4); Mean Corpuscular HGB Conc 32.6 g/dL (31.6-35.5); Mean Corpuscular Volume 91.9 fL (83.0-100.0); Mean Platelet Volume 9.8 fL (9.4-12.4); Monocytes % 8.6 %; Neutrophils # 9.3 K/mcL (1.6-8.9); Platelet Count 284 K/mcL (140-400); Red Blood Count 4.07 M/mcL (4.19-5.50); Red Cell Distribution Width 13.6 % (11.5-14.5); Segmented Neutrophils % 80.3 %
[2017-05-20] MEDS: *HR* HYDROmorphone (PF) 1 MG/ML SYRINGE IVP PRN ×4 (07:47→16:33)
--- NOTE | 2017-05-20 11:31 | General Surgery Progress Note ---
<Marya Wills Emili - Last Filed: 05/20/17 13:54> Date of Encounter: 05/20/17 Time of Encounter: 11:30 - Assessment and Plan (1) Acute appendicitis with appendiceal abscess Current Visit: Yes Status: Acute Febrile 05/19/2017 WITH T-MAX to 102.9F with intermittent tachycardia; otherwise VSS. Interventional radiology placed CT guided drain of the periappendiceal abscess and on 05/18. Final cultures noted to be positive for E-coli, psuedomonas, and gram-positive cockfight, gram-negative rods. Currently on Zosyn and Flagyl. He will require interval appendectomy in 6-8 weeks. He is having a difficult time ambulating per the bedside RN. Upon interview with court interpreter, via telephone, patient states his abdominal discomfort is improved but does remain around the tube and that it did prevent him from walking. Plan: - Full liquid diet - Social work involved - cultures resulted positive for E. coli, gram-positive cocci, gram-negative rods, Pseudomonas. Sensitive to Zosyn. - continue antibiotics Zosyn and Flagyl (started 05/17/17) -add scheduled toward old 15 mg IV to 6 hours -increase frequency of oxycodone 10/325 mg 1 tablet Q4 hours as needed. -Hydromorphone 1 mg Q2 hours if needed for breakthrough pain -patient is given instructions ,per court interpreter, that he has pain medication available and needs to request this from the nurse. He is also advised that he needs to ambulate as much as tolerated. -Do not flush pigtail drain to the patient; may flush to the bulb with 10 ml saline if clogged. -D/C planning pending clinical course. (2) DVT prophylaxis Current Visit: Yes Status: Acute EPCDs while in bed Ambulate as tolerated Subjective Patient reports: feels better, still having pain, pain is less, voiding w/o difficulty, no flatus, no bowel movement, afebrile Narrative: Subjective information obtained via telephone court interpreter. He states his abdominal is slightly better since his arrival to the hospital. He reports that his discomfort is around the tube that is placed and that that makes it difficult to walk. Objective Vital Signs - Last 8 Hours Temp Pulse Resp BP Pulse Ox 05/20/17 11:04 98.5 F 83 16 111/67 98 05/20/17 07:38 97.9 F 75 16 112/68 95 05/20/17 04:30 99.3 F 89 15 111/61 95 Intake and Output 05/19/17 05/20/17 05/20/17 23:59 07:59 15:59 Intake Total 680 / 680 1800 / 1800 Output Total 600 / 600 640 / 640 Balance 80 / 80 1160 / 1160 Intake: IV Fluids 200 / 200 1300 / 1300 0.9 % Sodium Chloride 1,000 ML 1000 / 1000 @ 100 mls/hr IVC .Q10H [facility] Rx#: [id number] Flagyl Premix 500 MG/100 ML 500 100 / 100 200 / 200 mg In 100 ml @ 100 mls/hr IVPB Q6HR [facility] Rx#:[id number] Zosyn 3.375 GM In Dextrose 5% ( 100 / 100 100 / 100 Minibag+) 100 ML 100 ML @ 25 mls/hr IVPB Q8H [facility] Rx#: [id number] Oral 480 / 480 500 / 500 Output: Urine 600 / 600 600 / 600 Wound Drainage 40 / 40 Right Lower Abdomen 40 / 40 Other: Meal Full Weight 67.5 kg Patient Weight 05/20/17 23:59 Weight 67.5 kg - General physical appearance no distress, moderate pain - Eyes normal ocular movement - ENT normal mucosa, atraumatic, normocephalic - Neck Neck exam: trachea midline, no venous distension - Respiratory normal expansion, normal respiratory effort, clear to auscultation - Cardiovascular Cardiovascular exam: Present: RRR, no murmurs/rubs/gallops - Abdomen Abdomen: Present: bowel sounds present, soft, tender, wound (Pigtail catheter in place. Moderate amount of cloudy brown drainage noted in the KARL drain.) Abdominal Tenderness: RLQ Hernia: none - Integumentary no rash - Neurologic CN 2-12 grossly intact, normal coordination - Musculoskeletal normal gait, other (gaurding posture.) - Psychiatric oriented to place, speech is normal - Labs 05/20/17 05:33 05/19/17 04:54 - VTE Documentation of Mechanical Device: Intermittent pneumatic compression device Consult Discharge Plan - Plan Referrals: NONE,PCP [Primary Care Provider] - <Johnny Khan - Last Filed: 05/20/17 15:46> Date of Encounter: 05/20/17 - Assessment and Plan (1) Acute appendicitis with appendiceal abscess Current Visit: Yes Status: Acute Objective Vital Signs - Last 8 Hours Temp Pulse Resp BP Pulse Ox 05/20/17 15:00 97.4 F L 85 14 121/70 95 05/20/17 11:04 98.5 F 83 16 111/67 98 Intake and Output 05/19/17 05/20/17 05/20/17 23:59 07:59 15:59 Intake Total 680 / 680 1800 / 1800 1100 / 1100 Output Total 600 / 600 640 / 640 600 / 600 Balance 80 / 80 1160 / 1160 500 / 500 Intake: IV Fluids 200 / 200 1300 / 1300 1100 / 1100 0.9 % Sodium Chloride 1,000 ML 1000 / 1000 1000 / 1000 @ 100 mls/hr IVC .Q10H [facility] Rx#: [id number] Flagyl Premix 500 MG/100 ML 500 100 / 100 200 / 200 100 / 100 mg In 100 ml @ 100 mls/hr IVPB Q6HR [facility] Rx#:[id number] Zosyn 3.375 GM In Dextrose 5% ( 100 / 100 100 / 100 Minibag+) 100 ML 100 ML @ 25 mls/hr IVPB Q8H [facility] Rx#: [id number] Oral 480 / 480 500 / 500 Output: Urine 600 / 600 600 / 600 600 / 600 Wound Drainage 40 / 40 Right Lower Abdomen 40 / 40 Other: Meal Full Weight 67.5 kg Patient Weight 05/20/17 23:59 Weight 67.5 kg - Labs 05/20/17 05:33 05/19/17 04:54 - Attending Attestation I have personally performed a face to face evaluation on this patient. I have reviewed and agree with the care plan. History and Exam by me shows: The patient is seen and evaluated morning rounds. He continues to struggle with episodes of sepsis despite broad-spectrum antibiotic and drainage of abscess. If his condition worsens he may require laparotomy. Johnny Khan MD FACS
[2017-05-20] MEDS: Ketorolac 15 MG/ML VIAL IVP SCH ×3 (12:00→23:27)
[2017-05-21] MEDS: Piperacillin/Tazobactam 3.375 GM in D5% in Water (Mini-Bag+) 100 ML IVPB SCH ×3 (03:26→20:38)
[2017-05-21] MEDS: 0.9 % Sodium Chloride 1,000 ML IVC SCH ×3 (03:26→18:07)
[2017-05-21] MEDS: *HR* OxyCODONE/APAP 10/325 TABLET PO PRN (03:29)
[2017-05-21] MEDS: MetroNIDAZOLE 500 MG/100 ML 500 MG/100 ML BAG IVPB SCH ×3 (05:58→18:06)
[2017-05-21] MEDS: Ketorolac 15 MG/ML VIAL IVP SCH ×3 (05:58→18:05)
[2017-05-21 07:47] LABS: Basophils % 0.3 %; Eosinophils # 0.2 K/mcL (0.0-0.6); Eosinophils % 2.8 %; Hematocrit 38.7 % (37.5-50.1); Hemoglobin 12.8 g/dL (12.9-16.9); Immature Granulocytes % 0.3 % (0-4); Immature Platelets 3.5 % (1.1-6.1); Lymphocytes # 1.6 K/mcL (0.6-4.6); Lymphocytes % 22.5 %; Mean Corpuscular HGB Conc 33.1 g/dL (31.6-35.5); Mean Corpuscular Hemoglobin 30.8 pg (28.0-33.3); Mean Corpuscular Volume 93.3 fL (83.0-100.0); Mean Platelet Volume 9.8 fL (9.4-12.4); Monocytes # 0.7 K/mcL (0.0-1.3); Monocytes % 9.1 %; Neutrophils # 4.6 K/mcL (1.6-8.9); Platelet Count 344 K/mcL (140-400); Red Blood Count 4.15 M/mcL (4.19-5.50); Red Cell Distribution Width 13.6 % (11.5-14.5)
[2017-05-21 08:07] LABS: Blood Urea Nitrogen 7 mg/dL (8-26); Carbon Dioxide 26 mEq/L (19-29); Chloride 106 mEq/L (98-109); Sodium 139 mEq/L (136-145)
[2017-05-21 08:08] LABS: Alanine Aminotransferase 17 Units/L (0-55); Albumin 2.7 g/dL (3.5-5.0); Albumin/Globulin Ratio 0.7 (1.1-2.2); Alkaline Phosphatase 110 Units/L (38-126); Aspartate Amino Transferase 21 Units/L (5-34); BUN/Creatinine Ratio 9 (6-26); Bilirubin,Total 0.6 mg/dL (0.2-1.2); Calcium 9.3 mg/dL (8.6-10.8); Globulin 3.9 g/dL (2.4-3.5); Glucose 96 mg/dL (70-99); Osmolality,Calculated 286 (280-300); Total Protein 6.6 g/dL (6.0-8.3); eGFR For African Americans > 60; eGFR For Non-African Americans > 60
--- NOTE | 2017-05-21 10:19 | General Surgery Progress Note ---
Date of Encounter: 05/21/17 Time of Encounter: 10:52 - Assessment and Plan (1) Acute appendicitis with appendiceal abscess Current Visit: Yes Status: Acute Ill appearing. VSS. KARL output is unchanged. Currently on Zosyn and Flagyl. Currently, plan for interval appendectomy in 6-8 weeks. Electrical And Instrument Technician at bedside. Kwaku states his abdominal discomfort is more controlled today with the current regimen. He reports an accident related to lack of appetite. Denies nausea or vomiting. He is concerned about his DC plan as he lives with friends. He states he is considering going to live with his sister in [place] after d/c. If this is his plan, an accepting surgeon will need to be arranged prior. Pt is aware and verbalizes understanding. He will need to remain in the hospital at least over the weekend for IV antibiotics and parenteral nutrition. Per the attending attestation, he continues to struggle with episodes of sepsis despite the broad spectrum antibiotic and drainage of the abscess and if this condition or to worse and he may require laparotomy. Plan: - Full liquid diet - Social work involved (updated on the patient's consideration of convalescing in [place]). - cultures resulted positive for E. coli, gram-positive cocci, gram-negative rods, Pseudomonas. Sensitive to Zosyn. - continue antibiotics Zosyn and Flagyl (started 05/17/17) -Repeat am labs -PICC line -Start TPN per nutrition -continue scheduled toward old 15 mg IV to 6 hours -oxycodone 10/325 mg 1 tablet Q4 hours as needed. -Hydromorphone 1 mg Q2 hours if needed for breakthrough pain -patient is given instructions ,per online trader, that he has pain medication available and needs to request this from the nurse. He is also advised that he needs to ambulate as much as tolerated. He may shower daily. -Do not flush pigtail drain to the patient; may flush to the bulb with 10 ml saline if clogged. -D/C planning pending clinical course. -Electrical And Instrument Technician to bedside. (2) Moderate malnutrition Current Visit: Yes Status: Acute Albumin has decreased from 3.8 on 05/17 to 2.7 today. Pt reports anorexia related to lack of appetite. Per clinical team, he is consuming aprox 10% of his meal (for breakfast he at only 50% of his cream of wheat). He is recommended to begin TPN/lipids today and remain in hospital throughout the weekend. (3) Anorexia Current Visit: Yes Status: Acute See above (4) DVT prophylaxis Current Visit: Yes Status: Acute Heparin 5000 units SQ BID EPCDs while in bed Ambulate as tolerated Subjective Patient reports: still having pain, pain is less, voiding w/o difficulty, no flatus, no bowel movement, nausea, other (No appetite; feels fevered sometimes) Objective Vital Signs - Last 8 Hours Temp Pulse Resp BP Pulse Ox 05/21/17 06:35 97.6 F 65 14 103/68 98 05/21/17 04:00 97.7 F 60 18 112/70 99 Intake and Output 05/20/17 05/21/17 05/21/17 23:59 07:59 15:59 Intake Total 1220 / 1220 1600 / 1600 360 / 360 Output Total 920 / 920 0 / 0 Balance 300 / 300 1600 / 1600 360 / 360 Intake: IV Fluids 300 / 300 1300 / 1300 0.9 % Sodium Chloride 1,000 ML 1000 / 1000 @ 100 mls/hr IVC .Q10H [facility] Rx#: [id number] Flagyl Premix 500 MG/100 ML 500 100 / 100 200 / 200 mg In 100 ml @ 100 mls/hr IVPB Q6HR [facility] Rx#:[id number] Zosyn 3.375 GM In Dextrose 5% ( 200 / 200 100 / 100 Minibag+) 100 ML 100 ML @ 25 mls/hr IVPB Q8H [facility] Rx#: [id number] Oral 920 / 920 300 / 300 360 / 360 Output: Urine 900 / 900 0 / 0 Wound Drainage 20 / 20 0 / 0 Right Lower Abdomen 20 / 20 0 / 0 Other: Meal Dinner Percent of Meal Consumed 50% - General physical appearance no distress, moderate pain, other (ill appearing) - Eyes normal ocular movement - ENT normal mucosa, atraumatic, normocephalic - Neck Neck exam: trachea midline, no venous distension - Respiratory normal expansion, normal respiratory effort, clear to auscultation - Cardiovascular Cardiovascular exam: Present: RRR, no murmurs/rubs/gallops - Abdomen Abdomen: Present: bowel sounds present, soft (Soft but involuntary gaurding noted), tender, wound (Foul smelling, purulent drainage in the KARL bulb. ) Hernia: none - Integumentary no rash, no growths - Neurologic normal coordination, normal sensation - Musculoskeletal normal gait, normal posture - Psychiatric oriented to time, oriented to person, oriented to place, memory intact - Labs 05/21/17 07:40 05/21/17 07:40 Diabetes panel 05/21/17 Range/Units 07:40 Sodium 139 (136-145) mEq/L Potassium 4.0 (3.5-4.5) mEq/L Chloride 106 (98-109) mEq/L Carbon Dioxide 26 (19-29) mEq/L BUN 7 L (8-26) mg/dL Creatinine 0.79 (0.72-1.25) mg/dL Glucose 96 (70-99) mg/dL Calcium 9.3 (8.6-10.8) mg/dL AST 21 (5-34) Units/L ALT 17 (0-55) Units/L Alkaline Phosphatase 110 (38-126) Units/L Albumin 2.7 L (3.5-5.0) g/dL Calcium panel 05/21/17 Range/Units 07:40 Calcium 9.3 (8.6-10.8) mg/dL Albumin 2.7 L (3.5-5.0) g/dL Pituitary panel 05/21/17 Range/Units 07:40 Sodium 139 (136-145) mEq/L Potassium 4.0 (3.5-4.5) mEq/L Chloride 106 (98-109) mEq/L Carbon Dioxide 26 (19-29) mEq/L BUN 7 L (8-26) mg/dL Creatinine 0.79 (0.72-1.25) mg/dL Glucose 96 (70-99) mg/dL Calcium 9.3 (8.6-10.8) mg/dL Adrenal panel 05/21/17 Range/Units 07:40 Sodium 139 (136-145) mEq/L Potassium 4.0 (3.5-4.5) mEq/L Chloride 106 (98-109) mEq/L Carbon Dioxide 26 (19-29) mEq/L BUN 7 L (8-26) mg/dL Creatinine 0.79 (0.72-1.25) mg/dL Glucose 96 (70-99) mg/dL Calcium 9.3 (8.6-10.8) mg/dL Total Bilirubin 0.6 (0.2-1.2) mg/dL AST 21 (5-34) Units/L ALT 17 (0-55) Units/L Alkaline Phosphatase 110 (38-126) Units/L Albumin 2.7 L (3.5-5.0) g/dL - VTE Documentation of Mechanical Device: Intermittent pneumatic compression device Consult Discharge Plan - Plan Instructions: [facility] (DC), [facility] ([facility]) Referrals: NONE,PCP [Primary Care Provider] -
[2017-05-21] MEDS ORDERED: Lidocaine -MPF 1% 5 ML AMPUL INFILT ONE (13:15)
[2017-05-21] MEDS ORDERED: D10% in Water 500 ML IVC PRN (13:26)
[2017-05-21] MEDS ORDERED: Clinimix E 5%-15% SOLUTION 2,000 ML with MVI, adult with vitamin K 10 ML IVC SCH (17:00)
[2017-05-21] MEDS: *HR* Heparin 5,000 UNIT/ML VIAL SQ SCH (18:06)
[2017-05-22] MEDS: Ketorolac 15 MG/ML VIAL IVP SCH ×4 (00:43→15:17)
[2017-05-22] MEDS: MetroNIDAZOLE 500 MG/100 ML 500 MG/100 ML BAG IVPB SCH ×4 (00:43→21:09)
[2017-05-22] MEDS: Piperacillin/Tazobactam 3.375 GM in D5% in Water (Mini-Bag+) 100 ML IVPB SCH ×2 (04:44→14:54)
[2017-05-22] MEDS: *HR* Heparin 5,000 UNIT/ML VIAL SQ SCH ×2 (06:11→16:47)
--- NOTE | 2017-05-22 11:18 | General Surgery Progress Note ---
Date of Encounter: 05/22/17 Time of Encounter: 08:30 - Assessment and Plan (1) Acute appendicitis with appendiceal abscess Current Visit: Yes Status: Acute Blender at bedside. Patient feels unchanged from yesterday. VSS. KARL output is unchanged. Currently on Zosyn and Flagyl. Currently, plan for interval appendectomy in 6-8 weeks. Concerns for DC plan as he lives with friends. He states he is considering going to live with his sister in [place] after d/c. If this is his plan, an accepting surgeon will need to be arranged prior. Pt is aware and verbalizes understanding. He will need to remain in the hospital at least over the weekend for IV antibiotics and parenteral nutrition. Per the attending attestation, he continues to struggle with episodes of sepsis despite the broad spectrum antibiotic and drainage of the abscess and if this condition or to worse and he may require laparotomy. Plan: - Full liquid diet - Social work involved (updated on the patient's consideration of convalescing in [place]). - cultures resulted positive for E. coli, gram-positive cocci, gram-negative rods, Pseudomonas. Sensitive to Zosyn. - continue antibiotics Zosyn and Flagyl (started 05/17/17) -awaiting AM labs, Repeat am labs -PICC line in place -Full TPN per nutrition -continue scheduled toradol 15 mg IV to 6 hours -oxycodone 10/325 mg 1 tablet Q4 hours as needed. -Hydromorphone 1 mg Q2 hours if needed for breakthrough pain -patient is given instructions ,per plaster machine operator, that he has pain medication available and needs to request this from the nurse. He is also advised that he needs to ambulate as much as tolerated. He may shower daily. -Do not flush pigtail drain to the patient; may flush to the bulb with 10 ml saline if clogged. -D/C planning pending clinical course. -Blender to bedside. (2) Moderate malnutrition Current Visit: Yes Status: Acute Albumin has decreased from 3.8 on 05/17 to 2.7 yesterday. Pt reports anorexia related to lack of appetite. Dinner not recorded how much he at but only at 50 % of lunch. Continue TPN/lipids and remain in hospital throughout the weekend. (3) Anorexia Current Visit: Yes Status: Acute see plan above (4) DVT prophylaxis Current Visit: Yes Status: Acute IPCD Subjective Narrative: Today patient is feeling about the same as yesterday. Patient is not hungry. Denies N/V. Objective Vital Signs - Last 8 Hours Temp Pulse Resp BP Pulse Ox 05/22/17 07:59 97.9 F 64 16 100/72 99 05/22/17 05:25 97.6 F 59 14 110/71 98 Intake and Output 05/21/17 05/22/17 05/22/17 23:59 07:59 15:59 Intake Total 300 / 300 400 / 400 Output Total 1425 / 1425 1810 / 1810 Balance -1125 / -1125 -1410 / -1410 Intake: IV Fluids 300 / 300 200 / 200 Flagyl Premix 500 MG/100 ML 500 200 / 200 100 / 100 mg In 100 ml @ 100 mls/hr IVPB Q6HR [facility] Rx#:[id number] Zosyn 3.375 GM In Dextrose 5% ( 100 / 100 100 / 100 Minibag+) 100 ML 100 ML @ 25 mls/hr IVPB Q8H [facility] Rx#: [id number] Oral 0 / 0 200 / 200 Output: Urine 1425 / 1425 1800 / 1800 Wound Drainage 0 / 0 10 / 10 Right Lower Abdomen 0 / 0 10 / 10 Other: # Voids 1 Weight 67.404 kg Blood Glucose* 135 102 Patient Weight 05/22/17 23:59 Weight 67.404 kg - Additional Exam Constitutional: Alert, in no acute distress, well nourished, well developed. Head: Normocephalic, atraumatic, normal contour and symmetric, no masses, lesions or scars Heart: Normal, regular rate and rhythm, no murmurs Lungs: Clear to auscultation, no wheezes, rales, or rhonchi Abdomen: Diffusely tender, drain present RLQ, drainage is sanguinous with a ting of yellow/brown, Soft, and no masses palpable, bowel sounds present and normal, no guarding or rigidity. Extremities: No clubbing, cyanosis, or edema, radial pulse +2/4, capillary refill <2sec. Skin: Skin warm and dry, no lesions, no rashes, no jaundice Neurologic: Cranial nerves II through XII grossly intact, no focal deficits, strength within normal limits in all extremities Psych: Cooperative with exam, good eye contact, cognitive function intact, judgment good insight good, speech clear, thought process logical, and goal directed - Labs 05/21/17 07:40 05/21/17 07:40 Calcium panel 05/21/17 Range/Units 13:32 Phosphorus 3.5 (2.3-4.7) mg/dL - VTE Documentation of Mechanical Device: Intermittent pneumatic compression device Consult Discharge Plan - Plan Instructions: [facility] (DC), [facility] ([facility]) Referrals: NONE,PCP [Primary Care Provider] -
[2017-05-22 12:47] LABS: Basophils % 0.4 %; Eosinophils # 0.1 K/mcL (0.0-0.6); Eosinophils % 1.3 %; Hematocrit 37.8 % (37.5-50.1); Hemoglobin 12.5 g/dL (12.9-16.9); Immature Granulocytes % 0.3 % (0-4); Lymphocytes # 0.9 K/mcL (0.6-4.6); Lymphocytes % 13.8 %; Mean Corpuscular HGB Conc 33.1 g/dL (31.6-35.5); Mean Corpuscular Hemoglobin 30.6 pg (28.0-33.3); Mean Corpuscular Volume 92.6 fL (83.0-100.0); Mean Platelet Volume 10.6 fL (9.4-12.4); Monocytes # 0.4 K/mcL (0.0-1.3); Monocytes % 5.7 %; Neutrophils # 5.3 K/mcL (1.6-8.9); Platelet Count 302 K/mcL (140-400); Red Blood Count 4.08 M/mcL (4.19-5.50); Red Cell Distribution Width 13.7 % (11.5-14.5); Segmented Neutrophils % 78.5 %
[2017-05-22 13:02] LABS: BUN/Creatinine Ratio 11 (6-26); Blood Urea Nitrogen 8 mg/dL (8-26); Calcium 9.7 mg/dL (8.6-10.8); Carbon Dioxide 25 mEq/L (19-29); Chloride 106 mEq/L (98-109); Glucose 123 mg/dL (70-99); Magnesium 1.6 mg/dL (1.7-2.2); Osmolality,Calculated 288 (280-300); Phosphorous 3.6 mg/dL (2.3-4.7); Potassium 3.8 mEq/L (3.5-4.5); Sodium 139 mEq/L (136-145); Triglycerides 70 mg/dL (< 150); eGFR For African Americans > 60; eGFR For Non-African Americans > 60
[2017-05-22] MEDS: *HR* OxyCODONE/APAP 10/325 TABLET PO PRN ×2 (16:48→21:09)
[2017-05-22] MEDS ORDERED: Clinimix E 5%-15% SOLUTION 2,000 ML with MVI, adult with vitamin K 10 ML IVC SCH (17:00)
[2017-05-22] MEDS: 0.9 % Sodium Chloride 1,000 ML IVC SCH ×2 (19:21→22:45)
[2017-05-23] MEDS: Piperacillin/Tazobactam 3.375 GM in D5% in Water (Mini-Bag+) 100 ML IVPB SCH ×4 (00:08→22:52)
[2017-05-23] MEDS: Ketorolac 15 MG/ML VIAL IVP SCH ×5 (00:09→23:02)
[2017-05-23] MEDS: MetroNIDAZOLE 500 MG/100 ML 500 MG/100 ML BAG IVPB SCH ×4 (03:38→21:13)
[2017-05-23 04:45] LABS: Basophils % 0.2 %; Eosinophils # 0.1 K/mcL (0.0-0.6); Eosinophils % 1.6 %; Immature Granulocytes % 0.6 % (0-4); Lymphocytes # 1.3 K/mcL (0.6-4.6); Mean Corpuscular HGB Conc 32.4 g/dL (31.6-35.5); Mean Corpuscular Hemoglobin 30.2 pg (28.0-33.3); Mean Corpuscular Volume 93.2 fL (83.0-100.0); Monocytes # 0.3 K/mcL (0.0-1.3); Monocytes % 3.2 %; Neutrophils # 7.2 K/mcL (1.6-8.9); Platelet Count 352 K/mcL (140-400); Red Blood Count 3.97 M/mcL (4.19-5.50); Red Cell Distribution Width 13.8 % (11.5-14.5); Segmented Neutrophils % 80.4 %
[2017-05-23 04:58] LABS: BUN/Creatinine Ratio 12 (6-26); Blood Urea Nitrogen 9 mg/dL (8-26); Calcium 8.9 mg/dL (8.6-10.8); Carbon Dioxide 24 mEq/L (19-29); Chloride 107 mEq/L (98-109); Glucose 106 mg/dL (70-99); Magnesium 1.9 mg/dL (1.7-2.2); Osmolality,Calculated 289 (280-300); Phosphorous 4.6 mg/dL (2.3-4.7); Potassium 3.9 mEq/L (3.5-4.5); Sodium 140 mEq/L (136-145); eGFR For African Americans > 60; eGFR For Non-African Americans > 60
[2017-05-23] MEDS: *HR* Heparin 5,000 UNIT/ML VIAL SQ SCH ×2 (06:00→16:59)
[2017-05-23] MEDS: *HR* OxyCODONE/APAP 10/325 TABLET PO PRN (07:57)
[2017-05-23] MEDS: 0.9 % Sodium Chloride 1,000 ML IVC SCH ×2 (09:17→22:50)
--- NOTE | 2017-05-23 09:44 | General Surgery Progress Note ---
Date of Encounter: 05/23/17 Time of Encounter: 09:00 - Assessment and Plan (1) Acute appendicitis with appendiceal abscess Current Visit: Yes Status: Acute Pain is better than yesterday. Patient states she has been eating about 50% of his meals. He is having loose bowel movements. VSS. KARL output is 35ml last 24 hrs. rodeo rider at bedside. Currently on Zosyn and Flagyl. Currently, plan for interval appendectomy in 6-8 weeks. Concerns for DC plan as he lives with friends. He states he is considering going to live with his sister in [place] after d/c. If this is his plan, an accepting surgeon will need to be arranged prior. Pt is aware and verbalizes understanding. He will need to remain in the hospital at least over the weekend for IV antibiotics and parenteral nutrition. Per the attending attestation, he continues to struggle with episodes of sepsis despite the broad spectrum antibiotic and drainage of the abscess and if this condition or to worse and he may require laparotomy. Plan: - Full liquid diet - Social work involved (updated on the patient's consideration of f/u in [place] ). - cultures resulted positive for E. coli, gram-positive cocci, gram-negative rods, Pseudomonas. Sensitive to Zosyn. - continue antibiotics Zosyn and Flagyl (started 05/17/17) -WBC wnl Repeat am labs -PICC line in place -decrease TPN, half TPN -continue scheduled toradol 15 mg IV to 6 hours -oxycodone 10/325 mg 1 tablet Q4 hours as needed. -Hydromorphone 1 mg Q2 hours if needed for breakthrough pain -patient is given instructions ,per rodeo rider, that he has pain medication available and needs to request this from the nurse. He is also advised that he needs to ambulate as much as tolerated. He may shower daily. -Do not flush pigtail drain to the patient; may flush to the bulb with 10 ml saline if clogged. -D/C planning pending clinical course. -Route Sales Trainee to bedside. (2) Moderate malnutrition Current Visit: Yes Status: Acute Albumin has decreased from 3.8 on 05/17 to 2.7 05/22. Pt reports anorexia related to lack of appetite. Patient states that he has been eating about 50% of meals. Plan: - Decrease TPN to 50% (3) Anorexia Current Visit: Yes Status: Acute see plan above (4) DVT prophylaxis Current Visit: Yes Status: Acute IPCD Subjective Narrative: Patient presents to the ED for abdominal pain for 5 days and was found to have an appendicitis abscess and is status post drain placement. Today patient states that he is feeling a little better. Patient is not hungry. Denies N/V. Objective Vital Signs - Last 8 Hours Temp Pulse Resp BP Pulse Ox 05/23/17 08:17 98.2 F 72 16 103/62 96 05/23/17 04:40 98.0 F 69 15 114/70 99 Intake and Output 05/22/17 05/23/17 05/23/17 23:59 07:59 15:59 Intake Total 1340 / 1340 550 / 550 1000 / 1000 Output Total 915 / 915 452 / 452 520 / 520 Balance 425 / 425 98 / 98 480 / 480 Intake: IV Fluids 1100 / 1100 450 / 450 1000 / 1000 0.9 % Sodium Chloride 1,000 ML 1000 / 1000 1000 / 1000 @ 100 mls/hr IVC .Q10H [facility] Rx#: [id number] Intralipid 20% 250 ML @ 21 mls/ 250 / 250 hr IVPB DAILY@1700 CARIN Rx#: [id number] Flagyl Premix 500 MG/100 ML 500 100 / 100 100 / 100 mg In 100 ml @ 100 mls/hr IVPB Q6H CAR[facility] Rx#:[id number] Zosyn 3.375 GM In Dextrose 5% ( 100 / 100 Minibag+) 100 ML 100 ML @ 25 mls/hr IVPB Q8H CARIN Rx#: [id number] Oral 240 / 240 100 / 100 0 / 0 Output: Urine 900 / 900 450 / 450 500 / 500 Wound Drainage Right Lower Abdomen Other: Meal Dinner Refuesed Percent of Meal Consumed 25% 0% # Voids 2 Weight 67 kg 70.3 kg Blood Glucose* 135 96 114 Patient Weight 05/23/17 23:59 Weight 70.3 kg - Additional Exam Constitutional: Alert, in no acute distress, well nourished, well developed. Head: Normocephalic, atraumatic, normal contour and symmetric, no masses, lesions or scars Heart: Normal, regular rate and rhythm, no murmurs Lungs: Clear to auscultation, no wheezes, rales, or rhonchi Abdomen: Diffusely tender, drain present RLQ, drainage is sanguinous with a tinge of yellow/brown, Soft, and no masses palpable, bowel sounds present and normal, no guarding or rigidity. Extremities: picc line in upper extremity No clubbing, cyanosis, or edema, radial pulse +2/4, capillary refill <2sec. Skin: Skin warm and dry, no lesions, no rashes, no jaundice Neurologic: Cranial nerves II through XII grossly intact, no focal deficits, strength within normal limits in all extremities Psych: Cooperative with exam, good eye contact, cognitive function intact, judgment good insight good, speech clear, thought process logical, and goal directed - Labs 05/23/17 04:35 05/23/17 04:35 Diabetes panel 05/22/17 05/23/17 Range/Units 12:30 04:35 Sodium 139 140 (136-145) mEq/L Potassium 3.8 3.9 (3.5-4.5) mEq/L Chloride 106 107 (98-109) mEq/L Carbon Dioxide 25 24 (19-29) mEq/L BUN 8 9 (8-26) mg/dL Creatinine 0.70 L 0.73 (0.72-1.25) mg/dL Glucose 123 H 106 H (70-99) mg/dL Calcium 9.7 8.9 (8.6-10.8) mg/dL Triglycerides 70 (< 150) mg/dL Calcium panel 05/22/17 05/23/17 Range/Units 12:30 04:35 Calcium 9.7 8.9 (8.6-10.8) mg/dL Phosphorus 3.6 4.6 (2.3-4.7) mg/dL Pituitary panel 05/22/17 05/23/17 Range/Units 12:30 04:35 Sodium 139 140 (136-145) mEq/L Potassium 3.8 3.9 (3.5-4.5) mEq/L Chloride 106 107 (98-109) mEq/L Carbon Dioxide 25 24 (19-29) mEq/L BUN 8 9 (8-26) mg/dL Creatinine 0.70 L 0.73 (0.72-1.25) mg/dL Glucose 123 H 106 H (70-99) mg/dL Calcium 9.7 8.9 (8.6-10.8) mg/dL Adrenal panel 05/22/17 05/23/17 Range/Units 12:30 04:35 Sodium 139 140 (136-145) mEq/L Potassium 3.8 3.9 (3.5-4.5) mEq/L Chloride 106 107 (98-109) mEq/L Carbon Dioxide 25 24 (19-29) mEq/L BUN 8 9 (8-26) mg/dL Creatinine 0.70 L 0.73 (0.72-1.25) mg/dL Glucose 123 H 106 H (70-99) mg/dL Calcium 9.7 8.9 (8.6-10.8) mg/dL - VTE Documentation of Mechanical Device: Intermittent pneumatic compression device Consult Discharge Plan - Plan Instructions: [facility] (DC), [facility] (GEN) Referrals: NONE,PCP [Primary Care Provider] -
[2017-05-23] MEDS ORDERED: Clinimix E 5%-15% SOLUTION 2,000 ML with MVI, adult with vitamin K 10 ML IVC SCH ×2 (13:56→17:00)
[2017-05-24] MEDS: MetroNIDAZOLE 500 MG/100 ML 500 MG/100 ML BAG IVPB SCH ×2 (03:18→09:20)
[2017-05-24 03:34] LABS: Basophils % 0.3 %; Eosinophils # 0.2 K/mcL (0.0-0.6); Eosinophils % 3.6 %; Hematocrit 38.3 % (37.5-50.1); Hemoglobin 12.3 g/dL (12.9-16.9); Immature Granulocytes % 0.7 % (0-4); Lymphocytes # 1.3 K/mcL (0.6-4.6); Lymphocytes % 20.4 %; Mean Corpuscular HGB Conc 32.1 g/dL (31.6-35.5); Mean Corpuscular Hemoglobin 30.1 pg (28.0-33.3); Mean Corpuscular Volume 93.6 fL (83.0-100.0); Mean Platelet Volume 9.9 fL (9.4-12.4); Monocytes # 0.6 K/mcL (0.0-1.3); Monocytes % 9.3 %; Platelet Count 383 K/mcL (140-400); Red Blood Count 4.09 M/mcL (4.19-5.50); Red Cell Distribution Width 13.8 % (11.5-14.5); Segmented Neutrophils % 65.7 %
[2017-05-24 03:45] LABS: BUN/Creatinine Ratio 11 (6-26); Blood Urea Nitrogen 8 mg/dL (8-26); Carbon Dioxide 24 mEq/L (19-29); Chloride 107 mEq/L (98-109); Glucose 111 mg/dL (70-99); Magnesium 1.7 mg/dL (1.7-2.2); Osmolality,Calculated 287 (280-300); Phosphorous 3.6 mg/dL (2.3-4.7); Potassium 3.9 mEq/L (3.5-4.5); Sodium 139 mEq/L (136-145); eGFR For African Americans > 60; eGFR For Non-African Americans > 60
[2017-05-24] MEDS: Ketorolac 15 MG/ML VIAL IVP SCH (06:35)
[2017-05-24] MEDS: *HR* Heparin 5,000 UNIT/ML VIAL SQ SCH (06:35)
[2017-05-24] MEDS: Piperacillin/Tazobactam 3.375 GM in D5% in Water (Mini-Bag+) 100 ML IVPB SCH (06:36)
[2017-05-24] MEDS: 0.9 % Sodium Chloride 1,000 ML IVC SCH ×2 (06:40→09:23)
[2017-05-24 07:15] VITALS: BP 114/66
--- NOTE | 2017-05-24 09:13 | Discharge Summary ---
<JohannMarya Mock - Last Filed: 05/24/17 11:08> Date of Encounter: 05/24/17 Time of Encounter: 09:03 - Discharge Diagnosis (1) Acute appendicitis with appendiceal abscess Priority: Primary Status: Acute (2) Moderate malnutrition Priority: Secondary Status: Acute (3) Anorexia Priority: Secondary Status: Acute (4) DVT prophylaxis Priority: Secondary Status: Acute - Discharge Medications Prescriptions: Ibuprofen [Motrin] 800 mg PO Q8HR PRN #90 tablet PRN Reason: Pain HYDROcodone/Acet 5/325 mg [[place] 5-325 mg] 1 tab PO Q6H PRN #28 tab PRN Reason: Pain not relieved by ibuprofen Levofloxacin [Levaquin] 750 mg PO QDPC 10 Days #10 tablet Home Medications: HYDROcodone/Acet 5/325 mg [[place] 5-325 mg] 1 tab PO Q6H PRN #28 tab 05/24/17 [Rx ] Ibuprofen [Motrin] 800 mg PO Q8HR PRN #90 tablet 05/24/17 [Rx] Levofloxacin [Levaquin] 750 mg PO QDPC 10 Days #10 tablet 05/24/17 [Rx] Allergies/Adverse Reactions: 3 Allergy/AdvReac Type Severity Reaction Status Date / Time No Known Allergies Allergy Verified 05/17/17 15:55 General Surgery Exam Initial Vital Signs Temp Pulse Resp BP Pulse Ox 98.8 F 95 18 113/73 100 05/17/17 15:48 05/17/17 15:48 05/17/17 15:48 05/17/17 15:48 05/17/17 15:48 - General physical appearance well developed, well nourished, no distress, moderate pain - Eyes normal ocular movement - ENT normal mucosa, atraumatic, normocephalic - Neck trachea midline, no venous distension - Respiratory normal expansion, normal respiratory effort, clear to auscultation - Cardiovascular Cardiovascular exam: Present: RRR - Abdomen Abdomen general surgery: Present: bowel sounds present, soft, tender, wound ( Pigtail drain with small amount of dark output. D/c'd without complication.) Abdominal Tenderness: Present: RLQ Hernia: Present: none - Incision Incision: Present: clean and dry, intact - Integumentary Integumentary general surgery: Present: warm and dry, no abnormal pigmentation - Neurologic Present: CN 2-12 grossly intact, normal coordination, normal sensation - Musculoskeletal Present: normal gait, normal posture - Psychiatric Psychiatric general surgery: Present: A&Ox3, appropriate, oriented to person, oriented to place, oriented to time, speech is normal, memory intact Date of admission: 05/17/17 22:50 Primary care physician: PCP NONE Consults: 05/18/17 07:03 Consult to Interventional Radiology [CONS] Routine Consulting Provider: Radiology Interventional Cols Reason for Consult: Periappendiceal abcess Time Notified: 08:00 Call Completed: Yes 05/21/17 13:15 Consult to Invasive Line Access Team [CONS] Routine Reason for Consult: Picc Line Insertion Line Type: PICC PICC line indications: Parental nutrition Time Notified: 13:15 Call Completed: Yes 05/21/17 13:16 consult to analysis consultant [Consult to Nutrition] [CONS] Stat Comment: total IVF (MIV and TPN) at 100 ml/hr Consulting Provider: NUTRITION Reason for Dietary Consult: TPN Start and Manage Discharging clinician: Johnny Wills) Anticipated date of discharge: 05/24/17 - Patient Status Disposition: Home, Self-Care Condition: Fair Functional capacity at discharge: independent ambulation Overall status at discharge: patient is progressing back to baseline - Discharge Instructions Follow Up With: Johnny Khan MD [Partnered Physician] - 06/22/17 10:10 am Additional Instructions: General Surgical Discharge Instructions 1. You may return to work when you feel able. 2. You may shower beginning today, but no tub baths, soaking, or swimming for 2 weeks. 3. You may resume driving, if you did previously, when you are off narcotics and are safe to react in a car. 4. Take your ibuprofen if needed every 8 hours. If this does not relieve your discomfort, you may take one of the Hydrocodone. Take narcotics (hydrocodone) as directed. Do not take more narcotics then directed and do not share your narcotics with any other person. Do not drink alcohol while on narcotics. 5. Take stool softeners (Colace) or a water based laxative (Miralax) if/while taking narcotics. You may hold for loose stools. 6. Report any fevers greater than 100.5F, increase abdominal discomfort, drainage that looks like pus, increased redness or pain at the drain site, or any vomiting. 7. Follow-up in the office as directed. 9. Take the antibiotics as directed. Do not stop them without talking to your provider. 10. Follow up in the office with Dr. Khan on 06/22/2017 at 10:10 am. 11. We will ensure that an information security systems instructor is present. We will request [employer] as you requested. Instrucciones generales de micha quirrgica 1. Puede regresar al trabajo cuando se sienta capaz. 2. Puede ducharse a partir de hoy, [place] sin baeras, remojo o natacin dani 2 semanas. 3. Puede volver a conducir, si lo hizo anteriormente, cuando est fuera de los narcticos y es seguro reaccionar en un automvil. 4. Addy moyer ibuprofeno si es necesario cada 8 horas. Si esto no ania moyer incomodidad, puede kisha miguel a de las Hydrocodone. Addy narcticos (hidrocodona) segn las indicaciones. No tome ms narcticos que los indicados y no comparta susan narcticos con ninguna otra persona. No ron alcohol mientras kristin narc ticos. 5. Addy ablandadores fecales (Colace) o un laxante a base de agua (Miralax) si / mientras kristin narcticos. Usted puede esperar para deposiciones sueltas. 6. Informe cualquier fiebre mayor de 100.5 F, aumente las molestias abdominales, drenaje que se ve ching pus, aumento del enrojecimiento o dolor en el sitio de drenaje, o cualquier vmito. 7. Vesna un seguimiento en la oficina segn las indicaciones. 9. Addy los antibiticos segn las indicaciones. No los detenga sin hablar con moyer proveedor. 10. Vesna un seguimiento en la oficina con el Dr. Khan el 06/22/2017 a las 10:10 a.m. 11. Nos aseguraremos de que haya un intrprete presente. Solicitaremos a [employer] ching lo solicit. - Diet and Activity Activity: increase activity as tolerated Diet: advance to your usual diet - Hospital Course Hospital course: Mr. Malik is a 21 year old male who presented on 05/17/2017 with complaints of 5 day history of abdominal pain. A CT demonstrated a 5 cm appendiceal abscess. He was admitted for IV antibiotic therapy and was referred to interventional radiology for a pigtail drain placement with return of 40 ML's purluent fluid on 05/18/2017. He had intermittent fevers of Tmax 102.9. Body fluid Cultures were obtained in IR and the final report indicated positive for E. coli, Streptococcus anginos, providencia rettgeri, and pseudomonas aeruginosa , all of which were susceptible to his current IV ABX and po Levofloxacin. He was continued on IV Zosyn Flagyl with plans for an interval appendectomy in 6 to 8 weeks. He was unable to tolerate PO due to anorexia for a brief period of time and was given parental nutrition for 3 days. He is currently afebrile, vital signs are stable, he is tolerating a full liquid diet without nausea or vomiting, and states as abdominal discomfort is currently controlled. His pigtail train was DC due to lack of output. We will begin discharge planning to home with a follow-up in the office with Dr. Khan in 4 weeks. An information security systems instructor will be arranged for this visit. All discharge instructions were provided to the patient via the information security systems instructor. He will be discharged on 10 days of levofloxacin 750 mg one per day, 800 mg ibuprofen TID PRN for pain. Hydrocodone 5/325 mg 1 tablet Q6 hours PRN for pain not controlled with ibuprofen. Pt requests that the same information security systems instructor, [employer] (cell) [phone] and reachable through [employer] be present at his follow-up appointment and subsequent surgical intervention if indicated. - Time Spent with Patient Total time spent providing and/or coordinating discharge services: Greater than 30 minutes Specific discharge activities: Lengthy discharge activities include medication assistance per social work, arrangement of information security systems instructor for follow-up appointment per patient request, and discharge planning. Labs on day of discharge: Labs from last 24 hours 05/24/17 05/24/17 05/24/17 07:12 04:04 03:15 WBC 6.1 RBC 4.09 L Hgb 12.3 L Hct 38.3 MCV 93.6 MCH 30.1 MCHC 32.1 RDW 13.8 Plt Count 383 MPV 9.9 Immature Gran % 0.7 Seg Neutrophils % 65.7 Lymphocytes % 20.4 Monocytes % 9.3 Eosinophils % 3.6 Basophils % 0.3 Neutrophils # 4.0 Lymphocytes # 1.3 Monocytes # 0.6 Eosinophils # 0.2 Basophils # 0.0 Sodium Potassium Chloride Carbon Dioxide BUN Creatinine Est GFR ( Amer) Est GFR (Non-Af Amer) BUN/Creatinine Ratio Glucose POC Glucose 107 H 100 H Calculated Osmolality Calcium Phosphorus Magnesium 05/24/17 05/23/17 03:15 23:29 WBC RBC Hgb Hct MCV MCH MCHC RDW Plt Count MPV Immature Gran % Seg Neutrophils % Lymphocytes % Monocytes % Eosinophils % Basophils % Neutrophils # Lymphocytes # Monocytes # Eosinophils # Basophils # Sodium 139 Potassium 3.9 Chloride 107 Carbon Dioxide 24 BUN 8 Creatinine 0.70 L Est GFR ( Amer) > 60 Est GFR (Non-Af Amer) > 60 BUN/Creatinine Ratio 11 Glucose 111 H POC Glucose 116 H Calculated Osmolality 287 Calcium 9.0 Phosphorus 3.6 Magnesium 1.7 - Impressions ITS Impressions Abscess Drainage CT 05/18/17 00:00 IMPRESSION: 1. CT guided drainage of periappendiceal abscess as discussed above. D/ / Edgar Corral MD / Edgar Corral MD Interpreting Provider: Edgar Corral MD <Johnny Khan - Last Filed: 05/24/17 13:17> Date of Encounter: 05/24/17 - Discharge Diagnosis (1) Acute appendicitis with appendiceal abscess Status: Acute General Surgery Exam Initial Vital Signs Temp Pulse Resp BP Pulse Ox 98.8 F 95 18 113/73 100 05/17/17 15:48 05/17/17 15:48 05/17/17 15:48 05/17/17 15:48 05/17/17 15:48 Date of admission: 05/17/17 22:50 Primary care physician: PCP NONE Consults: 05/18/17 07:03 Consult to Interventional Radiology [CONS] Routine Consulting Provider: Radiology Interventional Cols Reason for Consult: Periappendiceal abcess Time Notified: 08:00 Call Completed: Yes 05/21/17 13:15 Consult to Invasive Line Access Team [CONS] Routine Reason for Consult: Picc Line Insertion Line Type: PICC PICC line indications: Parental nutrition Time Notified: 13:15 Call Completed: Yes 05/21/17 13:16 consult to analysis consultant [Consult to Nutrition] [CONS] Stat Comment: total IVF (MIV and TPN) at 100 ml/hr Consulting Provider: NUTRITION Reason for Dietary Consult: TPN Start and Manage 05/24/17 09:21 Consult to Aircraft Cylinder Mechanic [CONS] Stat Reason for SW Consult: Medication assistance - Hospital Course Hospital course: Mr. Malik is a 21 year old male - Time Spent with Patient Total time spent providing and/or coordinating discharge services: Labs on day of discharge: Labs from last 24 hours 05/24/17 05/24/17 05/24/17 11:08 07:12 04:04 WBC RBC Hgb Hct MCV MCH MCHC RDW Plt Count MPV Immature Gran % Seg Neutrophils % Lymphocytes % Monocytes % Eosinophils % Basophils % Neutrophils # Lymphocytes # Monocytes # Eosinophils # Basophils # Sodium Potassium Chloride Carbon Dioxide BUN Creatinine Est GFR ( Amer) Est GFR (Non-Af Amer) BUN/Creatinine Ratio Glucose POC Glucose 111 H 107 H 100 H Calculated Osmolality Calcium Phosphorus Magnesium 05/24/17 05/24/17 05/23/17 03:15 03:15 23:29 WBC 6.1 RBC 4.09 L Hgb 12.3 L Hct 38.3 MCV 93.6 MCH 30.1 MCHC 32.1 RDW 13.8 Plt Count 383 MPV 9.9 Immature Gran % 0.7 Seg Neutrophils % 65.7 Lymphocytes % 20.4 Monocytes % 9.3 Eosinophils % 3.6 Basophils % 0.3 Neutrophils # 4.0 Lymphocytes # 1.3 Monocytes # 0.6 Eosinophils # 0.2 Basophils # 0.0 Sodium 139 Potassium 3.9 Chloride 107 Carbon Dioxide 24 BUN 8 Creatinine 0.70 L Est GFR ( Amer) > 60 Est GFR (Non-Af Amer) > 60 BUN/Creatinine Ratio 11 Glucose 111 H POC Glucose 116 H Calculated Osmolality 287 Calcium 9.0 Phosphorus 3.6 Magnesium 1.7 - Impressions ITS Impressions Abscess Drainage CT 05/18/17 00:00 IMPRESSION: 1. CT guided drainage of periappendiceal abscess as discussed above. D/ / Edgar Corral MD / Edgar Corral MD Interpreting Provider: Edgar Corral MD - Attending Attestation I have personally performed a face to face evaluation on this patient. I have reviewed and agree with the care plan. History and Exam by me shows: The patient was seen and evaluated on morning rounds. CT drain has minimal drainage. He can be transitioned to oral antibiotics and discharge from the hospital. I will see him 1 week in follow-up in my office. Johnny Khan MD FACS
[2017-05-24] MEDS ORDERED: FLUARIX QUAD 2017-18 36MOS UP/PF 0.5 ML SYRINGE IM ONE (10:46)
== END 2017-05-24 12:30 | disposition home or self-care (01) | DRG 371 ==
LOC: EMEROO 15:46 → 3ANU 15:46 → SUATTDRO 22:50
PROVIDERS: ADMIT Internal Medicine; ATTEND Surgery
PROC: IRFLUID (2017-05-18 13:15)

== ENCOUNTER 2017-05-28 16:57 | Inpatient (IN) ==
[2017-05-28 18:04] LABS: Bilirubin,Urine Negative (Negative); Blood,Urine Negative (Negative); Clarity,Urine Clear (Clear); Color,Urine Yellow (Yellow); Glucose,Urine (UA) Normal (Normal); Ketones,Urine Negative (Negative); Leukocyte Esterase,Urine Negative (Negative); Nitrite,Urine Negative (Negative); Protein,Urine Negative (Neg-Trace); Specific Gravity,Urine 1.014 (1.010-1.025); Urobilinogen,Urine Normal (Normal)
--- NOTE | 2017-05-28 19:10 | Emergency Department Note ---
Disposition Clinical Impression: Acute appendicitis with appendiceal abscess Acute appendicitis Qualifiers: Acute appendicitis type: unspecified acute appendicitis type Qualified Code(s) : K35.80 - Unspecified acute appendicitis Disposition: Admitted As Inpatient Condition: Fair Time of Disposition: 22:12 Abdominal Pain HPI - General Chief Complaint: ED Abdominal Pain Stated Complaint: abd pain, abscess on appendix Time Seen by Provider: 05/28/17 19:10 Source: patient, historical interpreter Limitations: language barrier Nursing Notes Reviewed: Yes Vital Signs Reviewed: Yes - History of Present Illness HPI Narrative: 21-year-old male presents the ED with no past medical history for right lower quadrant pain that first began one week ago. He was seen here and admitted for appendicitis on having an abscess. He saw Dr. Khan who put a drain in him and did IV antibiotics. He was very septic and they had to use TPN to help feed. He was discharged on Wednesday after the drain was pulled out by them. And told to follow up on the next few weeks with surgery as IV appendix removed. Patient states he was doing fine all this week until today the pain returned. He was using his Gilman and antibiotics he was sent home with and says the pain was still occurring. He said it is still located in the right lower quadrant nonradiating and very severe and sharp and stabbing. He is not able eat anything for the last day due to the pain. He has had no vomiting but is nauseous. He is having no chest pain, shortness of breath, headaches, blurry vision. He does like he has a tactile fever but he has not checked it. He has no dysuria, diarrhea or constipation. He otherwise has no complaints. This history is all taken through his historical interpreter Pain Scale: 6 - Related Data Previous Rx's Medication Instructions Recorded HYDROcodone/Acet 5/325 mg [[place] 1 tab PO Q6H PRN #28 tab 05/24/17 5-325 mg] Ibuprofen [Motrin] 800 mg PO Q8HR PRN #90 tablet 05/24/17 Levofloxacin [Levaquin] 750 mg PO QDPC 10 Days #10 tablet 05/24/17 Allergies Allergy/AdvReac Type Severity Reaction Status Date / Time No Known Allergies Allergy Verified 05/28/17 17:46 Review of Systems: 10 point review of systems done and negative unless otherwise stated in the history of present illness. All systems ED: reviewed and negative except as stated. Review of Systems: As Per HPI Constitutional: Reports: fever, chills. Denies: weakness Eyes: Reports: as per HPI ENT ED: Denies: ear pain, throat pain, dental pain, hearing loss, epistaxis, congestion, dysphagia Cardiovascular: Denies: chest pain, palpitations, dyspnea on exertion, edema, syncope Respiratory: Denies: cough, dyspnea, wheezes, hemoptysis, stridor Gastrointestinal: Denies: abdominal pain, nausea, vomiting, diarrhea, constipation, hematemesis, melena, hematochezia Genitourinary: Denies: urgency, dysuria, frequency, hematuria Musculoskeletal: Denies: back pain, neck pain, arthralgia, myalgia Integumentary: Denies: rash, abrasion, lesions Neurological: Denies: headache, weakness, numbness, paresthesias, confusion, abnormal gait, vertigo Endocrine: Denies: fatigue Hematological/Lymphatic: Denies: easy bleeding, easy bruising Allergic/Immunologic: Denies: facial swelling, urticaria Abdominal Pain PMH - Past Medical History Medical history: Reports: no medical history Male Surgical History: Reports: no surgical history Psychiatric history: Reports: no psych history - Social History Smoking status: Never smoker Alcohol use: Reports: occasionally Drug use: Reports: none Physical Exam - General Limitations: language barrier General appearance: alert, in no apparent distress - Head Head exam: atraumatic, normocephalic, normal inspection - Eye Eye exam: Present: normal appearance, PERRL, EOMI - ENT ENT exam: normal exam, normal oropharynx, mucous membranes moist - Neck Neck exam: Present: normal inspection, full ROM, trachea midline - Chest Chest inspection: Present: normal inspection, symmetric chest wall rise - Respiratory Respiratory exam: Present: normal lung sounds bilaterally - Cardiovascular Cardiovascular exam: Present: regular rate, normal rhythm, normal heart sounds - Abdominal Exam Abdominal exam: Present: soft, tenderness, normal bowel sounds, obturator sign, heel tap sign, tenderness at McBurney's Point. Absent: distention, guarding, rebound, rigidity, organomegaly, Washington's sign, Rovsing's sign Abdominal tenderness: Present: RLQ, severe - Extremities Exam Extremities exam: Present: normal inspection, full ROM. Absent: tenderness, pedal edema - Back Exam Back exam: Present: normal inspection, full ROM. Absent: tenderness, CVA tenderness (R), CVA tenderness (L) - Neurological Exam Neurological exam: Present: alert, oriented X3 - Skin Skin exam: Present: warm, dry, intact, normal color Course Course Narrative: 21-year-old male presents with right lower quadrant pain he was recently discharged on Wednesday for the same thing where he had appendicitis with abscess. We will get a CT of his abdomen and pelvis with contrast. We will also do basic labs including CBC, CMP and lactate. We will give him fentanyl. 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 Patient's okay with this plan. This was all done through the historical interpreter. Vital Signs Temperature 98.1 F 05/28/17 17:42 Pulse Rate 93 05/28/17 17:42 Respiratory Rate 16 05/28/17 17:42 Blood Pressure 106/70 05/28/17 17:42 O2 Sat by Pulse Oximetry 99 05/28/17 17:42 Temperature 98.6 F 05/29/17 00:07 Pulse Rate 114 05/29/17 00:07 Respiratory Rate 16 05/29/17 00:07 Blood Pressure 111/71 05/29/17 00:07 O2 Sat by Pulse Oximetry 99 05/29/17 00:07 Oxygen Delivery Oxygen Delivery Room Air Abdominal Pain - MDM Narrative Medical decision making narrative: 21-year-old male presented to the ED for right lower quadrant pain. He was recently discharged by Dr. Khan with appendicitis with an abscess. He had the drain pulled before he left. Was sent home with antibiotics. He was feeling fine and having no pain for a few days until today he woke up with pleuritic right lower quadrant pain. The Gilman was not helping it. We decided to get basic labs including CBC and CMP as well as urinalysis. Those came BACK showing a leukocytosis. We will discuss CT of his abdomen and pelvis with contrast which did show a fluid collection near the appendix. We started him on Zosyn also given fentanyl for pain. We contacted Dr. Khan who is the surgeon master of ceremonies and he stated that he would admit the patient to his service up to 3 a and he was speaking to the private household worker. I related this to the patient through his historical interpreter and patient agreed this plan. Patient is admitted in stable condition to surgery. Abdomen/Pelvis CT 05/28/17 19:33 IMPRESSION: 1. Interval removal of the right lower quadrant drain. There has been reaccumulation of fluid with the collection measuring 3.2 x 1.5 cm. 2. There has been development of a small gas and fluid collection deep to the transversus abdominis muscle, and there is increased fat stranding in the right lower quadrant. 3. Hyperdensity posterior to the L5 vertebral body, which is believed to be a prominent epidural venous plexus. If there is any low back pain, MRI would be recommended. D/ / Hiren Kumar MD / Hiren Kumar MD Interpreting Provider: Hiren Kumar MD - Medical Records Medical records reviewed: Yes I reviewed the patient's medical records. - Lab Data Lab results reviewed: Yes I reviewed the patient's lab results. Result diagrams: 05/28/17 19:02 05/28/17 19:02 Lab Results 05/28/17 05/28/17 05/28/17 Range/Units 17:50 19:02 19:02 WBC 23.3 H D (4.3-11.1) K/mcL RBC 4.36 (4.19-5.50) M/mcL Hgb 13.2 (12.9-16.9) g/dL Hct 40.4 (37.5-50.1) % MCV 92.7 (83.0-100.0) fL MCH 30.3 (28.0-33.3) pg MCHC 32.7 (31.6-35.5) g/dL RDW 13.8 (11.5-14.5) % Plt Count 392 (140-400) K/mcL MPV 10.0 (9.4-12.4) fL Immature Gran % 0.6 (0-4) % Seg Neutrophils % 86.4 % Lymphocytes % 5.5 % Monocytes % 7.4 % Eosinophils % 0.0 % Basophils % 0.1 % Neutrophils # 20.1 H (1.6-8.9) K/mcL Lymphocytes # 1.3 (0.6-4.6) K/mcL Monocytes # 1.7 H (0.0-1.3) K/mcL Eosinophils # 0.0 (0.0-0.6) K/mcL Basophils # 0.0 (0.0-0.2) K/mcL Sodium 135 L (136-145) mEq/L Potassium 4.9 H (3.5-4.5) mEq/L Chloride 101 (98-109) mEq/L Carbon Dioxide 24 (19-29) mEq/L BUN 16 (8-26) mg/dL Creatinine 0.86 (0.72-1.25) mg/dL Est GFR ( Amer) > 60 Est GFR (Non-Af Amer) > 60 BUN/Creatinine Ratio 19 (6-26) Glucose 101 H (70-99) mg/dL Calculated Osmolality 281 (280-300) Lactic Acid (0.5-2.2) mmol/L Calcium 9.7 (8.6-10.8) mg/dL Total Bilirubin 0.9 (0.2-1.2) mg/dL Direct Bilirubin 0.4 (0.0-0.5) mg/dL Indirect Bilirubin 0.5 (0.0-1.2) mg/dL AST 19 (5-34) Units/L ALT 33 (0-55) Units/L Alkaline Phosphatase 104 (38-126) Units/L Serum Total Protein 8.1 (6.0-8.3) g/dL Albumin 3.5 (3.5-5.0) g/dL Globulin 4.6 H (2.4-3.5) g/dL Albumin/Globulin Ratio 0.8 L (1.1-2.2) Lipase 25 (8-78) Units/L Urine Color Yellow (Yellow) Urine Clarity Clear (Clear) Urine pH 6.0 (5.0-8.0) pH Units Ur Specific Penrose 1.014 (1.010-1.025) Urine Protein Negative (Neg-Trace) mg/dL Urine Glucose (UA) Normal (Normal) mg/dL Urine Ketones Negative (Negative) mg/dL Urine Blood Negative (Negative) Urine Nitrite Negative (Negative) Urine Bilirubin Negative (Negative) Urine Urobilinogen Normal (Normal) mg/dL Ur Leukocyte Esterase Negative (Negative) Ur Culture Indicated? NO (NO) 05/28/17 Range/Units 19:52 WBC (4.3-11.1) K/mcL RBC (4.19-5.50) M/mcL Hgb (12.9-16.9) g/dL Hct (37.5-50.1) % MCV (83.0-100.0) fL MCH (28.0-33.3) pg MCHC (31.6-35.5) g/dL RDW (11.5-14.5) % Plt Count (140-400) K/mcL MPV (9.4-12.4) fL Immature Gran % (0-4) % Seg Neutrophils % % Lymphocytes % % Monocytes % % Eosinophils % % Basophils % % Neutrophils # (1.6-8.9) K/mcL Lymphocytes # (0.6-4.6) K/mcL Monocytes # (0.0-1.3) K/mcL Eosinophils # (0.0-0.6) K/mcL Basophils # (0.0-0.2) K/mcL Sodium (136-145) mEq/L Potassium (3.5-4.5) mEq/L Chloride (98-109) mEq/L Carbon Dioxide (19-29) mEq/L BUN (8-26) mg/dL Creatinine (0.72-1.25) mg/dL Est GFR ( Amer) Est GFR (Non-Af Amer) BUN/Creatinine Ratio (6-26) Glucose (70-99) mg/dL Calculated Osmolality (280-300) Lactic Acid 1.6 (0.5-2.2) mmol/L Calcium (8.6-10.8) mg/dL Total Bilirubin (0.2-1.2) mg/dL Direct Bilirubin (0.0-0.5) mg/dL Indirect Bilirubin (0.0-1.2) mg/dL AST (5-34) Units/L ALT (0-55) Units/L Alkaline Phosphatase (38-126) Units/L Serum Total Protein (6.0-8.3) g/dL Albumin (3.5-5.0) g/dL Globulin (2.4-3.5) g/dL Albumin/Globulin Ratio (1.1-2.2) Lipase (8-78) Units/L Urine Color (Yellow) Urine Clarity (Clear) Urine pH (5.0-8.0) pH Units Ur Specific Penrose (1.010-1.025) Urine Protein (Neg-Trace) mg/dL Urine Glucose (UA) (Normal) mg/dL Urine Ketones (Negative) mg/dL Urine Blood (Negative) Urine Nitrite (Negative) Urine Bilirubin (Negative) Urine Urobilinogen (Normal) mg/dL Ur Leukocyte Esterase (Negative) Ur Culture Indicated? (NO) Attestation Statement - Attestation Attestation: I, Francis Siddiqui, examined this patient and my medical decision-making was reviewed with the IC DESIGN MANAGER/PA/Advanced Practice Nurse/Resident Physician. I agree with the documented findings, disposition and treatment plan as described except to the extent set forth below. 21-year-old male presents emergency Department with concerns of pain to the right lower quadrant. Patient has guarding and tenderness to light palpation to the right lower quadrant on physical exam. Patient was recently diagnosed with acute appendicitis, had abscess drained by Dr. Khan and was discharged home with antibiotics. Patient states he has been taking his antibiotics and pain medications faithfully however he continues to worsen. Patient states he has been nauseated and unable to eat or drink throughout the day today. On laboratory testing patient has a significantly elevated leukocytosis. CT of the abdomen and pelvis shows reaccumulation of the fluid collection in the right lower quadrant. Resident spoke with Dr. Khan who agreed with plan to admit patient to the hospital for further care and evaluation.
[2017-05-28 19:26] LABS: Basophils % 0.1 %; Hematocrit 40.4 % (37.5-50.1); Hemoglobin 13.2 g/dL (12.9-16.9); Immature Granulocytes % 0.6 % (0-4); Lymphocytes # 1.3 K/mcL (0.6-4.6); Lymphocytes % 5.5 %; Mean Corpuscular HGB Conc 32.7 g/dL (31.6-35.5); Mean Corpuscular Hemoglobin 30.3 pg (28.0-33.3); Mean Corpuscular Volume 92.7 fL (83.0-100.0); Monocytes # 1.7 K/mcL (0.0-1.3); Monocytes % 7.4 %; Neutrophils # 20.1 K/mcL (1.6-8.9); Platelet Count 392 K/mcL (140-400); Red Blood Count 4.36 M/mcL (4.19-5.50); Red Cell Distribution Width 13.8 % (11.5-14.5); Segmented Neutrophils % 86.4 %
[2017-05-28] MEDS ORDERED: Ondansetron 4 MG/2 ML VIAL IVP ONE (19:33)
[2017-05-28] MEDS ORDERED: 0.9 % Sodium Chloride 1,000 ML IVC ONE (19:33)
[2017-05-28] MEDS ORDERED: *HR* FentaNYL (PF) 100 MCG/2 ML VIAL IVP ONE (19:33)
[2017-05-28] MEDS ORDERED: Piperacillin/Tazobactam 3.375 GM in D5% in Water (Mini-Bag+) 100 ML IVPB ONE (19:33)
[2017-05-28 19:41] LABS: Alanine Aminotransferase 33 Units/L (0-55); Albumin 3.5 g/dL (3.5-5.0); Albumin/Globulin Ratio 0.8 (1.1-2.2); Alkaline Phosphatase 104 Units/L (38-126); Aspartate Amino Transferase 19 Units/L (5-34); BUN/Creatinine Ratio 19 (6-26); Bilirubin,Direct 0.4 mg/dL (0.0-0.5); Bilirubin,Indirect 0.5 mg/dL (0.0-1.2); Bilirubin,Total 0.9 mg/dL (0.2-1.2); Blood Urea Nitrogen 16 mg/dL (8-26); Calcium 9.7 mg/dL (8.6-10.8); Carbon Dioxide 24 mEq/L (19-29); Chloride 101 mEq/L (98-109); Globulin 4.6 g/dL (2.4-3.5); Glucose 101 mg/dL (70-99); Lipase 25 Units/L (8-78); Osmolality,Calculated 281 (280-300); Potassium 4.9 mEq/L (3.5-4.5); Sodium 135 mEq/L (136-145); Total Protein 8.1 g/dL (6.0-8.3); eGFR For African Americans > 60; eGFR For Non-African Americans > 60
[2017-05-28] MEDS ORDERED: Ondansetron 4 MG/2 ML VIAL IVP PRN (22:39)
[2017-05-29] MEDS: *HR* HYDROmorphone (PF) 1 MG/ML SYRINGE IVP PRN ×7 (00:10→22:45)
[2017-05-29] MEDS: 0.9 % Sodium Chloride 1,000 ML IVC SCH ×3 (00:11→22:46)
[2017-05-29] MEDS: MetroNIDAZOLE 500 MG/100 ML 500 MG/100 ML BAG IVPB SCH ×3 (00:11→15:48)
[2017-05-29] MEDS: Piperacillin/Tazobactam 3.375 GM in D5% in Water (Mini-Bag+) 100 ML IVPB SCH ×3 (04:20→19:14)
[2017-05-29 05:28] LABS: Basophils % 0.2 %; Eosinophils % 0.1 %; Hematocrit 36.3 % (37.5-50.1); Hemoglobin 11.9 g/dL (12.9-16.9); Immature Granulocytes % 0.5 % (0-4); Lymphocytes # 1.4 K/mcL (0.6-4.6); Lymphocytes % 6.2 %; Mean Corpuscular HGB Conc 32.8 g/dL (31.6-35.5); Mean Corpuscular Volume 91.4 fL (83.0-100.0); Mean Platelet Volume 9.9 fL (9.4-12.4); Monocytes # 1.7 K/mcL (0.0-1.3); Monocytes % 7.8 %; Platelet Count 378 K/mcL (140-400); Red Blood Count 3.97 M/mcL (4.19-5.50); Red Cell Distribution Width 13.8 % (11.5-14.5); Segmented Neutrophils % 85.2 %
[2017-05-29 05:44] LABS: BUN/Creatinine Ratio 15 (6-26); Blood Urea Nitrogen 12 mg/dL (8-26); Calcium 9.2 mg/dL (8.6-10.8); Carbon Dioxide 26 mEq/L (19-29); Chloride 102 mEq/L (98-109); Glucose 105 mg/dL (70-99); Osmolality,Calculated 282 (280-300); Potassium 4.3 mEq/L (3.5-4.5); Sodium 136 mEq/L (136-145); eGFR For African Americans > 60; eGFR For Non-African Americans > 60
--- NOTE | 2017-05-29 08:25 | Anesthesia Evaluation PreOp ---
Date of Encounter: 05/29/17 Time of Encounter: 11:28 - Past History Planned Operation: exp lap Cardiac History: Denies any Significant Hx Pulmonary History: Denies Any Significant HX HOTEL CUSTODIAN History: Denies Any Significant HX Other Medical History: Other (Was just here for drainage of appendiceal abcess by IR, now with recurrent symptoms and intra-ab air) Anesthesia History: Past Anesthesia (iv sedation only for drainage procedure) Alcohol Use: occasionally Drug use: none Medications and Allergies HYDROcodone/Acet 5/325 mg [[place] 5-325 mg] 1 tab PO Q6H PRN #28 tab 05/24/17 [Rx ] Ibuprofen [Motrin] 800 mg PO Q8HR PRN #90 tablet 05/24/17 [Rx] Levofloxacin [Levaquin] 750 mg PO QDPC 10 Days #10 tablet 05/24/17 [Rx] 3 Allergy/AdvReac Type Severity Reaction Status Date / Time No Known Allergies Allergy Verified 05/28/17 17:46 - Meds/Allergy Pre-op Review Medications Reviewed: Yes Allergies Reviewed: Yes Beta Blockers on Current Med List: No Anesthesia Results - Labs 05/29/17 04:59 05/29/17 04:59 Anesthesia Exam Selected Entries 05/29/17 07:48 Temperature 99.9 F H Pulse Rate 107 Respiratory Rate 16 Blood Pressure 102/64 O2 Sat by Pulse Oximetry 96 Weight: 72kg NPO (# of Hours): 8 - HEENT Pupil (Motor): EOMI Mallampati: II Teeth: Normal Oral Opening: Greater than 3 - HOTEL CUSTODIAN LOC: Oriented HOTEL CUSTODIAN Motor: Normal RUE, Normal LUE, Normal RLE, Normal LLE, Normal Face HOTEL CUSTODIAN Sensory: Normal: RUE, LUE, RLE, LLE, Face - Cardiac Rhythm: Regular Murmur: None - Pulmonary Breath Sounds: bilateral Clear Respiratory Effort: Symmetrical Anesthesia Assess/Plan ASA Score: 1, E Modified Brillion Scale for Level of Consciousness: Cooperative, oriented, and tranquil Anesthetic Plan: General Monitoring Plan: Standard Monitors Recovery Plan: PACU (discussed risks of GA, patient agrees to proceed. All information relayed via senior agricultural assistant)
--- NOTE | 2017-05-29 11:04 | General Surg History&Physical ---
Date of Encounter: 05/29/17 Time of Encounter: 11:00 Assessment and Plan (1) Acute appendicitis with appendiceal abscess Current Visit: Yes Status: Acute The assessment and plan as outlined above was discussed with the patient and/or family members who expressed understanding and agreement. All questions were answered. The patient presents with recurrent appendiceal abscess and elevated white blood cell count. He now presents for urgent operation with exploratory laparotomy drainage of abscess and possible ileocecectomy. History of Present Illness Chief complaint: Recurrent appendiceal abscess HPI: Mr. Malik is a 21 year old male Was recently in the hospital for appendiceal abscess. He underwent CAT scan drained and antibiotic therapy with normalization of his white blood cell count. The CAT scan drain was removed he was placed on oral antibiotics and discharged. He developed progressive fevers and elevated white blood cell count as an outpatient. He was evaluated in the emergency room and found to have recurrent abscess. He now presents for admission and operation. Past Med Surg Social Fam HX - Past Medical History Medical history: no medical history Psychiatric history: no psych history - Social History Smoking Status: Never smoker Smokeless Tobacco Status: No Alcohol use: occasionally Drug use: none - Family History Mother Living Status: Still Living Father Living Status: Still Living Medications and Allergies HYDROcodone/Acet 5/325 mg [[place] 5-325 mg] 1 tab PO Q6H PRN #28 tab 05/24/17 [Rx ] Ibuprofen [Motrin] 800 mg PO Q8HR PRN #90 tablet 05/24/17 [Rx] Levofloxacin [Levaquin] 750 mg PO QDPC 10 Days #10 tablet 05/24/17 [Rx] 3 Allergy/AdvReac Type Severity Reaction Status Date / Time No Known Allergies Allergy Verified 05/28/17 17:46 Review of Systems All systems PM: A 10-system review of systems was performed and is negative for pertinent findings except as documented above in the HPI. General Surgery Exam Initial Vital Signs Temp Pulse Resp BP Pulse Ox 98.1 F 93 16 106/70 99 05/28/17 17:42 05/28/17 17:42 05/28/17 17:42 05/28/17 17:42 05/28/17 17:42 - General physical appearance well developed, well nourished, no distress - Respiratory normal expansion, normal respiratory effort, clear to percussion, clear to auscultation - Cardiovascular Cardiovascular exam: Present: RRR, 15, 16 - Abdomen Abdomen general surgery: Present: bowel sounds present, guarding, rebound Abdominal Tenderness: Present: RLQ - Integumentary Integumentary general surgery: Present: diaphoresis - Neurologic Present: CN 2-12 grossly intact, normal coordination, normal sensation - Psychiatric Psychiatric general surgery: Present: appropriate, oriented to person, oriented to place, oriented to time, speech is normal, memory intact Results - Labs 05/29/17 04:59 05/29/17 04:59 Abnormal lab results WBC 22.3 K/mcL (4.3-11.1) H 05/29/17 04:59 RBC 3.97 M/mcL (4.19-5.50) L 05/29/17 04:59 Hgb 11.9 g/dL (12.9-16.9) L 05/29/17 04:59 Hct 36.3 % (37.5-50.1) L 05/29/17 04:59 Neutrophils # 19.0 K/mcL (1.6-8.9) H 05/29/17 04:59 Monocytes # 1.7 K/mcL (0.0-1.3) H 05/29/17 04:59 Glucose 105 mg/dL (70-99) H 05/29/17 04:59 POC Glucose 109 (58-89) H 05/29/17 05:49 Globulin 4.6 g/dL (2.4-3.5) H 05/28/17 19:02 Albumin/Globulin Ratio 0.8 (1.1-2.2) L 05/28/17 19:02 Diabetes panel 05/29/17 Range/Units 04:59 Sodium 136 (136-145) mEq/L Potassium 4.3 (3.5-4.5) mEq/L Chloride 102 (98-109) mEq/L Carbon Dioxide 26 (19-29) mEq/L BUN 12 (8-26) mg/dL Creatinine 0.78 (0.72-1.25) mg/dL Glucose 105 H (70-99) mg/dL Calcium 9.2 (8.6-10.8) mg/dL Calcium panel 05/29/17 Range/Units 04:59 Calcium 9.2 (8.6-10.8) mg/dL Pituitary panel 05/29/17 Range/Units 04:59 Sodium 136 (136-145) mEq/L Potassium 4.3 (3.5-4.5) mEq/L Chloride 102 (98-109) mEq/L Carbon Dioxide 26 (19-29) mEq/L BUN 12 (8-26) mg/dL Creatinine 0.78 (0.72-1.25) mg/dL Glucose 105 H (70-99) mg/dL Calcium 9.2 (8.6-10.8) mg/dL Adrenal panel 05/29/17 Range/Units 04:59 Sodium 136 (136-145) mEq/L Potassium 4.3 (3.5-4.5) mEq/L Chloride 102 (98-109) mEq/L Carbon Dioxide 26 (19-29) mEq/L BUN 12 (8-26) mg/dL Creatinine 0.78 (0.72-1.25) mg/dL Glucose 105 H (70-99) mg/dL Calcium 9.2 (8.6-10.8) mg/dL All other labs normal. - Imaging CT scan - abdomen: image reviewed (I personally reviewed the CAT scan of the abdomen. He has recurrent abscess and phlegmon. He has failed conservative therapy.)
[2017-05-29] MEDS ORDERED: Lidocaine -MPF 2% 2 ML VIAL ONE (11:07)
[2017-05-29] MEDS ORDERED: Neostigmine Methylsulfate 3 MG/3 ML SYRINGE ONE (11:07)
[2017-05-29] MEDS ORDERED: Dexamethasone 4 MG/ML VIAL ONE (11:07)
[2017-05-29] MEDS ORDERED: *HR* FentaNYL (PF) 100 MCG/2 ML VIAL ONE (11:07)
[2017-05-29] MEDS ORDERED: Lidocaine -MPF 4% 5 ML AMPUL ONE (11:07)
[2017-05-29] MEDS ORDERED: *HR* Rocuronium Bromide 50 MG/5 ML VIAL ONE (11:07)
[2017-05-29] MEDS ORDERED: Ondansetron 4 MG/2 ML VIAL ONE (11:07)
[2017-05-29] MEDS ORDERED: *HR* Propofol 200 MG/20 ML VIAL IVP ONE (11:07)
[2017-05-29] MEDS ORDERED: CefOXitin 1,000 MG VIAL ONE (11:58)
[2017-05-29] MEDS ORDERED: Naloxone 0.4 MG/ML INJ IVP PRN (12:18)
[2017-05-29] MEDS ORDERED: *HR* Meperidine 25 MG/ML SYRINGE IVP PRN (12:18)
[2017-05-29] MEDS ORDERED: Ondansetron 4 MG/2 ML VIAL IVP PRN (12:18)
[2017-05-29] MEDS ORDERED: *HR* Promethazine 25 MG/ML VIAL IVP PRN (12:18)
[2017-05-29] MEDS ORDERED: *HR* HYDROmorphone 2 MG/ML SYRINGE ONE (12:24)
--- NOTE | 2017-05-29 13:15 | Operative Note ---
Date of procedure: 05/29/17 Pre-op diagnosis: Recurrent appendiceal abscess, perforated appendicitis Post-op diagnosis: same Procedure: #1 ileocecectomy #2 drainage of pelvic abscess Anesthesia: BRIAN Surgeon: Johnny Khan Estimated blood loss (cc): 20 Condition: stable Disposition: PACU Procedure in Detail: After informed consent patient was taken to the major operating suite and placed in the supine position and given adequate endotracheal anesthesia area timeout taken. Patient is identified. A freight sales broker is present in the room during the patient's induction and during the patient's consent process. I made a vertical midline incision the abdomen and entered the abdomen without difficulty. There was a phlegmon in the right lower quadrant. I worked for 20 minutes to mobilize the cecum and terminal small bowel out of the right lower quadrant. The omentum from the transverse colon was pulled into the phlegmon. Small bowel was relatively free. The base of the cecum was not intact and the appendix had disintegrated in the midst of an abscess cavity adjacent to the base the cecum. I divided the terminal ileum 5 cm proximal to the ileocecal valve. I divided the right colon at its midportion. I divided the mesentery including a portion of the abscess with clamps and hemostatic ligatures. The specimen was passed off the field. A portion of the appendix and cecal wall was embedded in the omentum next to the transverse colon. I resected this portion of the omentum with clamps and hemostatic ligatures and also sent this as specimen. I performed small bowel to right colon anastomosis with CHRISTIANO. Resulting enterotomy was closed with TA 60. I circumferentially reinforced the entire stapled anastomosis with interrupted silk. The resulting opening in the mesentery was closed with interrupted silk. There was no remaining abscess or purulence in the abdomen after this resection. I irrigated the abdomen and right lower quadrant with copious amounts of antibiotic containing solution. I did not think the placement of drain was necessary. The midline was closed with looped 0 PDS. The skin was reapproximated with interrupted Vicryl and skin clips. This is a class for wound. Free pus was present in the abdomen. The appendix was completely necrotic. And the abscess had recurred and involved the base of the cecum. The patient tolerated the procedure well.
--- NOTE | 2017-05-29 14:19 | Anesthesia Evaluation Post Op ---
Date of Encounter: 05/29/17 Time of Encounter: 14:16 - Vital Signs Vital Signs: Selected Entries 05/29/17 13:44 05/29/17 14:04 Temperature 99.0 F Pulse Rate 107 Respiratory Rate 16 Blood Pressure 129/76 O2 Sat by Pulse Oximetry 97 Oxygen Flow Rate (LPM) 2 - Lungs Lungs: Clear Ascult./Percussion - Airway Airway: Non-obstructed - Cardiovascular Regular Rate - Mental Status Mental Status: Alert & Oriented, Answers Appropriately - Pain Pain Scale: 8 (patient is not writhing in pain and appears quite comfortable. He is sedated and has to be aroused to assess his pain.) Pain Scale used: Numeric (1 - 10) - Nausea Vomiting Nausea Vomiting: Responds to treatment with IV Meds (recieved iv phenergan) - Hydration Hydration: Ice chips, Has not voided (overall patient appears comfortable. He relates he still has pain via his blueprint duplicator. Due to his sedation, will not give additional narcotic in PACU and will send to floor.)
[2017-05-29] MEDS ORDERED: 0.9 % Sodium Chloride 1,000 ML IVC SCH (15:05)
[2017-05-29] MEDS ORDERED: *HR* Heparin 5,000 UNIT/ML VIAL SQ SCH (18:00)
[2017-05-29] MEDS: *HR* Heparin 5,000 UNIT/ML VIAL SQ SCH (18:08)
[2017-05-30] MEDS: Piperacillin/Tazobactam 3.375 GM in D5% in Water (Mini-Bag+) 100 ML IVPB SCH ×4 (00:24→23:57)
[2017-05-30] MEDS: 0.9 % Sodium Chloride 1,000 ML IVC SCH ×2 (00:24→18:20)
[2017-05-30] MEDS: MetroNIDAZOLE 500 MG/100 ML 500 MG/100 ML BAG IVPB SCH ×4 (00:25→23:49)
[2017-05-30] MEDS: *HR* HYDROmorphone (PF) 1 MG/ML SYRINGE IVP PRN ×10 (00:33→23:56)
[2017-05-30] MEDS: *HR* Heparin 5,000 UNIT/ML VIAL SQ SCH ×2 (06:35→18:19)
--- NOTE | 2017-05-30 13:15 | General Surgery Progress Note ---
<Gallito Ayoub - Last Filed: 05/30/17 13:39> Date of Encounter: 05/30/17 Time of Encounter: 13:00 - Assessment and Plan (1) Acute appendicitis with appendiceal abscess Current Visit: Yes Status: Acute Postoperative day one of 1# ileocecectomy and #2 drainage of pelvic abscess. Procedure performed on 05/29/[address] Khan. phlegmon was present in RLQ. Appendix was completely necrotic; involved base of cecum. Patient tolerated procedure well. Plan: -NPO. IV fluids. -IV antibiotics: Zosyn 3.375gm daily and Flagyl 500 mg q6hr. -Dilaudid 1mg q1 for pain control. -Incentive spirometry. -Ambulate with assistance TID. -Pathology results are currently pending. -Last white count was 22.3; repeat AM labs. (2) DVT prophylaxis Current Visit: No Status: Acute Heparin 5000 SQ q12 Subjective Patient reports: still having pain Narrative: Patient was seen and examined at bedside this afternoon. Patient notes that he is having significant abdominal pain over the area of his incision. 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 He is able to tell me that his pain has not improved. Objective Vital Signs - Last 8 Hours Temp Pulse Resp BP Pulse Ox 05/30/17 10:03 98.7 F 79 16 114/73 98 05/30/17 08:07 98.7 F 82 16 121/79 98 Intake and Output 05/29/17 05/30/17 05/30/17 23:59 07:59 15:59 Intake Total 200 / 200 200 / 200 0 / 0 Output Total 400 / 400 400 / 400 600 / 600 Balance -200 / -200 -200 / -200 -600 / -600 Intake: IV Fluids 200 / 200 200 / 200 Flagyl Premix 500 MG/100 ML 500 100 / 100 100 / 100 mg In 100 ml @ 100 mls/hr IVPB Q8HR [facility] Rx#:[id number] Zosyn 3.375 GM In Dextrose 5% ( 100 / 100 100 / 100 Minibag+) 100 ML 100 ML @ 25 mls/hr IVPB Q8H [facility] Rx#: [id number] Oral 0 / 0 0 / 0 Output: Urine 400 / 400 400 / 400 600 / 600 Other: Meal npo NPO Percent of Meal Consumed 0% 0% # Bowel Movements 0 Weight 99.2 kg Blood Glucose* 141 132 118 Patient Weight 05/30/17 23:59 Weight 99.2 kg - General physical appearance well developed, well nourished - Labs 05/29/17 04:59 05/29/17 04:59 - VTE Documentation of Mechanical Device: Intermittent pneumatic compression device Consult Discharge Plan - Plan Referrals: Johnny Khan MD [Primary Care Provider] - <Johnny Khan - Last Filed: 05/30/17 14:40> Date of Encounter: 05/30/17 - Assessment and Plan (1) Acute appendicitis with appendiceal abscess Current Visit: Yes Status: Acute Objective Vital Signs - Last 8 Hours Temp Pulse Resp BP Pulse Ox 05/30/17 10:03 98.7 F 79 16 114/73 98 05/30/17 08:07 98.7 F 82 16 121/79 98 Intake and Output 05/29/17 05/30/17 05/30/17 23:59 07:59 15:59 Intake Total 200 / 200 200 / 200 0 / 0 Output Total 400 / 400 400 / 400 600 / 600 Balance -200 / -200 -200 / -200 -600 / -600 Intake: IV Fluids 200 / 200 200 / 200 Flagyl Premix 500 MG/100 ML 500 100 / 100 100 / 100 mg In 100 ml @ 100 mls/hr IVPB Q8HR [facility] Rx#:[id number] Zosyn 3.375 GM In Dextrose 5% ( 100 / 100 100 / 100 Minibag+) 100 ML 100 ML @ 25 mls/hr IVPB Q8H [facility] Rx#: [id number] Oral 0 / 0 0 / 0 Output: Urine 400 / 400 400 / 400 600 / 600 Other: Meal npo NPO Percent of Meal Consumed 0% 0% # Bowel Movements 0 Weight 99.2 kg Blood Glucose* 141 132 118 Patient Weight 05/30/17 23:59 Weight 99.2 kg - Labs 05/29/17 04:59 05/29/17 04:59 - Attending Attestation I examined this patient and my medical decision-making was reviewed with the Resident Physician. I agree with the documented findings, disposition and treatment plan as described except to the extent set forth below. The patient is seen and evaluated on morning rounds. His incision is intact. There is no evidence of erythema. His pain control is poor we will continue supportive care. We will maintain nothing by mouth for now. Johnny Khan MD FACS
[2017-05-30] MEDS ORDERED: *HR* HYDROmorphone 2 MG/ML SYRINGE IVP ONE (15:02)
[2017-05-30 17:35] LABS: Hematocrit 36.1 % (37.5-50.1); Hemoglobin 11.8 g/dL (12.9-16.9); Mean Corpuscular HGB Conc 32.7 g/dL (31.6-35.5); Mean Corpuscular Hemoglobin 29.9 pg (28.0-33.3); Mean Corpuscular Volume 91.4 fL (83.0-100.0); Mean Platelet Volume 10.1 fL (9.4-12.4); Platelet Count 401 K/mcL (140-400); Red Blood Count 3.95 M/mcL (4.19-5.50); Red Cell Distribution Width 13.6 % (11.5-14.5)
[2017-05-30 17:51] LABS: BUN/Creatinine Ratio 13 (6-26); Blood Urea Nitrogen 9 mg/dL (8-26); Calcium 9.2 mg/dL (8.6-10.8); Carbon Dioxide 27 mEq/L (19-29); Chloride 97 mEq/L (98-109); Glucose 118 mg/dL (70-99); Osmolality,Calculated 278 (280-300); Potassium 4.1 mEq/L (3.5-4.5); Sodium 134 mEq/L (136-145); eGFR For African Americans > 60; eGFR For Non-African Americans > 60
[2017-05-31] MEDS: *HR* HYDROmorphone (PF) 1 MG/ML SYRINGE IVP PRN ×6 (03:09→19:46)
[2017-05-31] MEDS: *HR* Heparin 5,000 UNIT/ML VIAL SQ SCH ×2 (05:01→17:34)
--- NOTE | 2017-05-31 09:48 | General Surgery Progress Note ---
<Gallito Ayoub - Last Filed: 05/31/17 09:52> Date of Encounter: 05/31/17 Time of Encounter: 08:50 - Assessment and Plan (1) Acute appendicitis with appendiceal abscess Current Visit: Yes Status: Acute Postoperative day 2 of 1# ileocecectomy and #2 drainage of pelvic abscess. Procedure performed on 05/29/[address] Khan. phlegmon was present in RLQ. Appendix was completely necrotic; involved base of cecum. Patient tolerated procedure well. Plan: -NPO. IV fluids. -IV antibiotics: Zosyn 3.375gm daily and Flagyl 500 mg q6hr. -Dilaudid 1mg q1 for pain control. -Incentive spirometry. -Ambulate with assistance TID. -Pathology results are currently pending. -White count is trending down; decreased from 22.3 to 19.0; repeat a.m. labs. (2) DVT prophylaxis Current Visit: No Status: Acute Heparin 5000 SQ q12 Subjective Patient reports: feels better, still having pain, pain is less Narrative: Patient was seen and examined at bedside this morning. He reports that he is still having abdominal pain at the site of his incision, but that his pain is significantly improved from yesterday. Denies fever, chills, nausea, vomiting. He has no complaints at this time. Objective Vital Signs - Last 8 Hours Temp Pulse Resp BP Pulse Ox 05/31/17 06:49 97.9 F 90 16 115/67 98 05/31/17 04:25 98.5 F 87 16 105/65 97 Intake and Output 05/30/17 05/31/17 05/31/17 23:59 07:59 15:59 Intake Total 200 / 200 200 / 200 0 / 0 Output Total 500 / 500 400 / 400 Balance -300 / -300 -200 / -200 0 / 0 Intake: IV Fluids 200 / 200 200 / 200 Flagyl Premix 500 MG/100 ML 500 100 / 100 100 / 100 mg In 100 ml @ 100 mls/hr IVPB Q8HR [facility] Rx#:[id number] Zosyn 3.375 GM In Dextrose 5% ( 100 / 100 100 / 100 Minibag+) 100 ML 100 ML @ 25 mls/hr IVPB Q8H [facility] Rx#: [id number] Oral 0 / 0 0 / 0 Output: Urine 500 / 500 400 / 400 Other: Meal NPO Breakfast NPO Percent of Meal Consumed 0% # Bowel Movements 0 Weight 99.2 kg Blood Glucose* 98 91 Patient Weight 05/31/17 23:59 Weight 99.2 kg - General physical appearance well developed, well nourished, no distress - Neck Neck exam: no masses, trachea midline, no lymphadectomy - Cardiovascular Cardiovascular exam: Present: RRR, no murmurs/rubs/gallops - Abdomen Abdomen: Present: bowel sounds present, soft, tender - Psychiatric oriented to time, oriented to person, oriented to place, memory intact - Labs 05/30/17 17:02 05/30/17 17:02 Diabetes panel 05/30/17 Range/Units 17:02 Sodium 134 L (136-145) mEq/L Potassium 4.1 (3.5-4.5) mEq/L Chloride 97 L (98-109) mEq/L Carbon Dioxide 27 (19-29) mEq/L BUN 9 (8-26) mg/dL Creatinine 0.72 (0.72-1.25) mg/dL Glucose 118 H (70-99) mg/dL Calcium 9.2 (8.6-10.8) mg/dL Calcium panel 05/30/17 Range/Units 17:02 Calcium 9.2 (8.6-10.8) mg/dL Pituitary panel 05/30/17 Range/Units 17:02 Sodium 134 L (136-145) mEq/L Potassium 4.1 (3.5-4.5) mEq/L Chloride 97 L (98-109) mEq/L Carbon Dioxide 27 (19-29) mEq/L BUN 9 (8-26) mg/dL Creatinine 0.72 (0.72-1.25) mg/dL Glucose 118 H (70-99) mg/dL Calcium 9.2 (8.6-10.8) mg/dL Adrenal panel 05/30/17 Range/Units 17:02 Sodium 134 L (136-145) mEq/L Potassium 4.1 (3.5-4.5) mEq/L Chloride 97 L (98-109) mEq/L Carbon Dioxide 27 (19-29) mEq/L BUN 9 (8-26) mg/dL Creatinine 0.72 (0.72-1.25) mg/dL Glucose 118 H (70-99) mg/dL Calcium 9.2 (8.6-10.8) mg/dL - VTE Documentation of Mechanical Device: Intermittent pneumatic compression device Consult Discharge Plan - Plan Referrals: Johnny Khan MD [Partnered Physician] - <Johnny Khan - Last Filed: 06/01/17 08:22> Date of Encounter: 05/31/17 - Assessment and Plan (1) Acute appendicitis with appendiceal abscess Current Visit: Yes Status: Acute Objective Vital Signs - Last 8 Hours Temp Pulse Resp BP Pulse Ox 06/01/17 06:52 97.9 F 74 14 120/73 96 06/01/17 04:22 98.2 F 85 18 100/64 95 Intake and Output 05/31/17 06/01/17 06/01/17 23:59 07:59 15:59 Intake Total 1400 / 1400 200 / 200 Output Total 1050 / 1050 250 / 250 Balance 350 / 350 -50 / -50 Intake: IV Fluids 1400 / 1400 200 / 200 0.9 % Sodium Chloride 1,000 ML 1000 / 1000 @ 75 mls/hr IVC .[id number] [facility] Rx #:[id number] Ofirmev 1,000 mg/100 ml 1,000 100 / 100 mg In 100 ml @ 400 mls/hr IVPB Q6H [facility] Rx#:[id number] Flagyl Premix 500 MG/100 ML 500 100 / 100 100 / 100 mg In 100 ml @ 100 mls/hr IVPB Q8HR [facility] Rx#:[id number] Zosyn 3.375 GM In Dextrose 5% ( 200 / 200 100 / 100 Minibag+) 100 ML 100 ML @ 25 mls/hr IVPB Q8H [facility] Rx#: [id number] Oral 0 / 0 0 / 0 Output: Urine 1050 / 1050 250 / 250 - Labs 06/01/17 04:31 06/01/17 04:31 Diabetes panel 05/31/17 06/01/17 Range/Units 14:10 04:31 Sodium 133 L 138 (136-145) mEq/L Potassium 3.9 3.4 L (3.5-4.5) mEq/L Chloride 96 L 99 (98-109) mEq/L Carbon Dioxide 24 27 (19-29) mEq/L BUN 12 12 (8-26) mg/dL Creatinine 0.72 0.70 L (0.72-1.25) mg/dL Glucose 115 H 105 H (70-99) mg/dL Calcium 9.2 9.3 (8.6-10.8) mg/dL Calcium panel 05/31/17 06/01/17 Range/Units 14:10 04:31 Calcium 9.2 9.3 (8.6-10.8) mg/dL Pituitary panel 05/31/17 06/01/17 Range/Units 14:10 04:31 Sodium 133 L 138 (136-145) mEq/L Potassium 3.9 3.4 L (3.5-4.5) mEq/L Chloride 96 L 99 (98-109) mEq/L Carbon Dioxide 24 27 (19-29) mEq/L BUN 12 12 (8-26) mg/dL Creatinine 0.72 0.70 L (0.72-1.25) mg/dL Glucose 115 H 105 H (70-99) mg/dL Calcium 9.2 9.3 (8.6-10.8) mg/dL Adrenal panel 05/31/17 06/01/17 Range/Units 14:10 04:31 Sodium 133 L 138 (136-145) mEq/L Potassium 3.9 3.4 L (3.5-4.5) mEq/L Chloride 96 L 99 (98-109) mEq/L Carbon Dioxide 24 27 (19-29) mEq/L BUN 12 12 (8-26) mg/dL Creatinine 0.72 0.70 L (0.72-1.25) mg/dL Glucose 115 H 105 H (70-99) mg/dL Calcium 9.2 9.3 (8.6-10.8) mg/dL - Attending Attestation I examined this patient and my medical decision-making was reviewed with the Resident Physician. I agree with the documented findings, disposition and treatment plan as described except to the extent set forth below. The patient was seen and evaluated on morning rounds with the rest. He is doing well after her ileocecectomy is experiencing expected postoperative pain. He does have good bowel sounds and we will place him on clear liquid diet. Johnny Khan MD FACS
[2017-05-31] MEDS: 0.9 % Sodium Chloride 1,000 ML IVC SCH (10:00)
[2017-05-31] MEDS: MetroNIDAZOLE 500 MG/100 ML 500 MG/100 ML BAG IVPB SCH ×3 (10:00→23:44)
[2017-05-31] MEDS: Piperacillin/Tazobactam 3.375 GM in D5% in Water (Mini-Bag+) 100 ML IVPB SCH ×3 (11:23→23:41)
[2017-05-31 14:21] LABS: Basophils % 0.2 %; Eosinophils % 0.1 %; Hematocrit 36.1 % (37.5-50.1); Hemoglobin 11.9 g/dL (12.9-16.9); Immature Granulocytes % 0.4 % (0-4); Lymphocytes # 0.8 K/mcL (0.6-4.6); Lymphocytes % 5.3 %; Mean Corpuscular Hemoglobin 30.2 pg (28.0-33.3); Mean Corpuscular Volume 91.6 fL (83.0-100.0); Mean Platelet Volume 9.7 fL (9.4-12.4); Monocytes # 0.9 K/mcL (0.0-1.3); Monocytes % 6.1 %; Neutrophils # 12.9 K/mcL (1.6-8.9); Platelet Count 379 K/mcL (140-400); Red Blood Count 3.94 M/mcL (4.19-5.50); Red Cell Distribution Width 13.8 % (11.5-14.5); Segmented Neutrophils % 87.9 %
[2017-05-31 14:33] LABS: BUN/Creatinine Ratio 17 (6-26); Blood Urea Nitrogen 12 mg/dL (8-26); Calcium 9.2 mg/dL (8.6-10.8); Carbon Dioxide 24 mEq/L (19-29); Chloride 96 mEq/L (98-109); Glucose 115 mg/dL (70-99); Osmolality,Calculated 277 (280-300); Potassium 3.9 mEq/L (3.5-4.5); Sodium 133 mEq/L (136-145); eGFR For African Americans > 60; eGFR For Non-African Americans > 60
[2017-05-31] MEDS: Acetaminophen IV 1,000 MG/100 ML INFUS..BTL IVPB SCH ×2 (15:00→21:59)
[2017-05-31] MEDS: Ketorolac 15 MG/ML VIAL IVP SCH ×2 (17:34→23:38)
[2017-06-01] MEDS: Acetaminophen IV 1,000 MG/100 ML INFUS..BTL IVPB SCH ×4 (02:28→21:29)
[2017-06-01] MEDS: Ondansetron 4 MG/2 ML VIAL IVP PRN ×2 (02:38→13:53)
[2017-06-01] MEDS: *HR* HYDROmorphone (PF) 1 MG/ML SYRINGE IVP PRN ×7 (04:26→21:28)
[2017-06-01] MEDS: Ketorolac 15 MG/ML VIAL IVP SCH ×3 (05:26→17:24)
[2017-06-01] MEDS: *HR* Heparin 5,000 UNIT/ML VIAL SQ SCH ×2 (05:27→17:24)
[2017-06-01] MEDS: 0.9 % Sodium Chloride 1,000 ML IVC SCH ×2 (05:28→21:28)
[2017-06-01 06:27] LABS: Basophils % 0.2 %; Eosinophils # 0.1 K/mcL (0.0-0.6); Eosinophils % 0.5 %; Hematocrit 35.9 % (37.5-50.1); Hemoglobin 12.1 g/dL (12.9-16.9); Immature Granulocytes % 0.5 % (0-4); Lymphocytes # 0.9 K/mcL (0.6-4.6); Lymphocytes % 7.2 %; Mean Corpuscular HGB Conc 33.7 g/dL (31.6-35.5); Mean Corpuscular Hemoglobin 30.7 pg (28.0-33.3); Mean Corpuscular Volume 91.1 fL (83.0-100.0); Mean Platelet Volume 10.3 fL (9.4-12.4); Monocytes # 0.9 K/mcL (0.0-1.3); Neutrophils # 10.9 K/mcL (1.6-8.9); Platelet Count 390 K/mcL (140-400); Red Blood Count 3.94 M/mcL (4.19-5.50); Red Cell Distribution Width 13.8 % (11.5-14.5); Segmented Neutrophils % 84.6 %
[2017-06-01 06:46] LABS: BUN/Creatinine Ratio 17 (6-26); Blood Urea Nitrogen 12 mg/dL (8-26); Calcium 9.3 mg/dL (8.6-10.8); Carbon Dioxide 27 mEq/L (19-29); Chloride 99 mEq/L (98-109); Glucose 105 mg/dL (70-99); Osmolality,Calculated 286 (280-300); Potassium 3.4 mEq/L (3.5-4.5); Sodium 138 mEq/L (136-145); eGFR For African Americans > 60; eGFR For Non-African Americans > 60
--- NOTE | 2017-06-01 08:24 | General Surgery Progress Note ---
<Gallito Ayoub - Last Filed: 06/01/17 14:37> Date of Encounter: 06/01/17 Time of Encounter: 08:00 - Assessment and Plan (1) Acute appendicitis with appendiceal abscess Current Visit: Yes Status: Acute Postoperative day 3 of 1# ileocecectomy and #2 drainage of pelvic abscess. Procedure performed on 05/29/[address] Khan. phlegmon was present in RLQ. Appendix was completely necrotic; involved base of cecum. Patient tolerated procedure well. Plan: -Advance to full liquid diet. -IV fluids. -IV antibiotics: Zosyn 3.375gm daily and Flagyl 500 mg q6hr. -Patient will be switched to oral meds for pain control; Dilaudid for breakthrough pain. -Incentive spirometry. -Ambulate with assistance TID. -White count is trending down; white count today is 12.9. (2) DVT prophylaxis Current Visit: No Status: Acute Heparin 5000 SQ q12 Subjective Patient reports: no new complaints, feels better, still having pain, pain is less Narrative: Patient was seen and examined at bedside this morning. No new complaints. States that he is feeling better and that his pain has improved. Wound dressing is clear; no blood or discharge present. Objective Vital Signs - Last 8 Hours Temp Pulse Resp BP Pulse Ox 06/01/17 06:52 97.9 F 74 14 120/73 96 06/01/17 04:22 98.2 F 85 18 100/64 95 Intake and Output 05/31/17 06/01/17 06/01/17 23:59 07:59 15:59 Intake Total 1400 / 1400 200 / 200 Output Total 1050 / 1050 250 / 250 Balance 350 / 350 -50 / -50 Intake: IV Fluids 1400 / 1400 200 / 200 0.9 % Sodium Chloride 1,000 ML 1000 / 1000 @ 75 mls/hr IVC .[id number] [facility] Rx #:[id number] Ofirmev 1,000 mg/100 ml 1,000 100 / 100 mg In 100 ml @ 400 mls/hr IVPB Q6H [facility] Rx#:[id number] Flagyl Premix 500 MG/100 ML 500 100 / 100 100 / 100 mg In 100 ml @ 100 mls/hr IVPB Q8HR [facility] Rx#:[id number] Zosyn 3.375 GM In Dextrose 5% ( 200 / 200 100 / 100 Minibag+) 100 ML 100 ML @ 25 mls/hr IVPB Q8H [facility] Rx#: [id number] Oral 0 / 0 0 / 0 Output: Urine 1050 / 1050 250 / 250 - General physical appearance well developed, well nourished, no distress - Neck Neck exam: no masses, trachea midline, no lymphadectomy - Respiratory normal expansion, normal respiratory effort, clear to auscultation - Cardiovascular Cardiovascular exam: Present: RRR, no murmurs/rubs/gallops - Abdomen Abdomen: Present: bowel sounds present, soft, tender - Labs 06/01/17 04:31 06/01/17 04:31 Diabetes panel 05/31/17 06/01/17 Range/Units 14:10 04:31 Sodium 133 L 138 (136-145) mEq/L Potassium 3.9 3.4 L (3.5-4.5) mEq/L Chloride 96 L 99 (98-109) mEq/L Carbon Dioxide 24 27 (19-29) mEq/L BUN 12 12 (8-26) mg/dL Creatinine 0.72 0.70 L (0.72-1.25) mg/dL Glucose 115 H 105 H (70-99) mg/dL Calcium 9.2 9.3 (8.6-10.8) mg/dL Calcium panel 05/31/17 06/01/17 Range/Units 14:10 04:31 Calcium 9.2 9.3 (8.6-10.8) mg/dL Pituitary panel 05/31/17 06/01/17 Range/Units 14:10 04:31 Sodium 133 L 138 (136-145) mEq/L Potassium 3.9 3.4 L (3.5-4.5) mEq/L Chloride 96 L 99 (98-109) mEq/L Carbon Dioxide 24 27 (19-29) mEq/L BUN 12 12 (8-26) mg/dL Creatinine 0.72 0.70 L (0.72-1.25) mg/dL Glucose 115 H 105 H (70-99) mg/dL Calcium 9.2 9.3 (8.6-10.8) mg/dL Adrenal panel 05/31/17 06/01/17 Range/Units 14:10 04:31 Sodium 133 L 138 (136-145) mEq/L Potassium 3.9 3.4 L (3.5-4.5) mEq/L Chloride 96 L 99 (98-109) mEq/L Carbon Dioxide 24 27 (19-29) mEq/L BUN 12 12 (8-26) mg/dL Creatinine 0.72 0.70 L (0.72-1.25) mg/dL Glucose 115 H 105 H (70-99) mg/dL Calcium 9.2 9.3 (8.6-10.8) mg/dL - VTE Documentation of Mechanical Device: Intermittent pneumatic compression device Consult Discharge Plan - Plan Referrals: Johnny Khan MD [Partnered Physician] - <Johnny Khan - Last Filed: 06/02/17 09:06> Date of Encounter: 06/01/17 - Assessment and Plan (1) Acute appendicitis with appendiceal abscess Current Visit: Yes Status: Acute Objective Vital Signs - Last 8 Hours Temp Pulse Resp BP Pulse Ox 06/02/17 07:16 98.2 F 79 15 130/77 95 06/02/17 04:43 98.5 F 86 16 122/77 95 Intake and Output 06/01/17 06/02/17 06/02/17 23:59 07:59 15:59 Intake Total 1400 / 1400 300 / 300 Output Total 550 / 550 900 / 900 Balance 850 / 850 -600 / -600 Intake: IV Fluids 1400 / 1400 300 / 300 0.9 % Sodium Chloride 1,000 ML 1000 / 1000 @ 75 mls/hr IVC .[id number] [facility] Rx #:[id number] Ofirmev 1,000 mg/100 ml 1,000 200 / 200 100 / 100 mg In 100 ml @ 400 mls/hr IVPB Q6H [facility] Rx#:[id number] Flagyl Premix 500 MG/100 ML 500 100 / 100 100 / 100 mg In 100 ml @ 100 mls/hr IVPB Q8HR [facility] Rx#:[id number] Zosyn 3.375 GM In Dextrose 5% ( 100 / 100 100 / 100 Minibag+) 100 ML 100 ML @ 25 mls/hr IVPB Q8H [facility] Rx#: [id number] Oral 0 / 0 0 / 0 Output: Urine 550 / 550 700 / 700 Emesis 200 / 200 Other: Meal npo Weight 96.2 kg Blood Glucose* 106 101 Patient Weight 06/02/17 23:59 Weight 96.2 kg - Labs 06/02/17 06:10 06/02/17 06:10 Diabetes panel 06/02/17 Range/Units 06:10 Sodium 138 (136-145) mEq/L Potassium 3.7 (3.5-4.5) mEq/L Chloride 101 (98-109) mEq/L Carbon Dioxide 26 (19-29) mEq/L BUN 12 (8-26) mg/dL Creatinine 0.71 L (0.72-1.25) mg/dL Glucose 102 H (70-99) mg/dL Calcium 9.1 (8.6-10.8) mg/dL Calcium panel 06/02/17 Range/Units 06:10 Calcium 9.1 (8.6-10.8) mg/dL Phosphorus 3.5 (2.3-4.7) mg/dL Pituitary panel 06/02/17 Range/Units 06:10 Sodium 138 (136-145) mEq/L Potassium 3.7 (3.5-4.5) mEq/L Chloride 101 (98-109) mEq/L Carbon Dioxide 26 (19-29) mEq/L BUN 12 (8-26) mg/dL Creatinine 0.71 L (0.72-1.25) mg/dL Glucose 102 H (70-99) mg/dL Calcium 9.1 (8.6-10.8) mg/dL Adrenal panel 06/02/17 Range/Units 06:10 Sodium 138 (136-145) mEq/L Potassium 3.7 (3.5-4.5) mEq/L Chloride 101 (98-109) mEq/L Carbon Dioxide 26 (19-29) mEq/L BUN 12 (8-26) mg/dL Creatinine 0.71 L (0.72-1.25) mg/dL Glucose 102 H (70-99) mg/dL Calcium 9.1 (8.6-10.8) mg/dL - Attending Attestation I examined this patient and my medical decision-making was reviewed with the Resident Physician. I agree with the documented findings, disposition and treatment plan as described except to the extent set forth below. The patient was seen and evaluated with the resident. Patient's condition is stable. His abdomen is somewhat distended. Bowel sounds are positive. We will try and advance his diet to clear liquids. Johnny Khan MD FACS
[2017-06-01] MEDS: MetroNIDAZOLE 500 MG/100 ML 500 MG/100 ML BAG IVPB SCH ×2 (08:34→16:23)
[2017-06-01] MEDS: Piperacillin/Tazobactam 3.375 GM in D5% in Water (Mini-Bag+) 100 ML IVPB SCH ×3 (09:28→21:29)
[2017-06-01] MEDS ORDERED: *HR* OxyCODONE/APAP 10/325 TABLET PO PRN (14:30)
[2017-06-01] MEDS: Metoclopramide 10 MG/2 ML VIAL IVP SCH (16:24)
[2017-06-01] MEDS ORDERED: Metoclopramide 10 MG/2 ML VIAL IVP SCH (18:00)
[2017-06-02] MEDS: MetroNIDAZOLE 500 MG/100 ML 500 MG/100 ML BAG IVPB SCH ×3 (00:37→16:31)
[2017-06-02] MEDS: Ketorolac 15 MG/ML VIAL IVP SCH ×4 (00:38→20:34)
[2017-06-02] MEDS: Metoclopramide 10 MG/2 ML VIAL IVP SCH ×3 (00:38→16:31)
[2017-06-02] MEDS: *HR* HYDROmorphone (PF) 1 MG/ML SYRINGE IVP PRN ×7 (01:41→20:31)
[2017-06-02] MEDS: Acetaminophen IV 1,000 MG/100 ML INFUS..BTL IVPB SCH ×4 (04:24→21:24)
[2017-06-02] MEDS: Piperacillin/Tazobactam 3.375 GM in D5% in Water (Mini-Bag+) 100 ML IVPB SCH ×3 (04:44→20:34)
[2017-06-02] MEDS: Ondansetron 4 MG/2 ML VIAL IVP PRN (04:44)
[2017-06-02 07:29] LABS: Basophils % 0.2 %; Eosinophils # 0.1 K/mcL (0.0-0.6); Eosinophils % 0.6 %; Hemoglobin 10.6 g/dL (12.9-16.9); Immature Granulocytes % 0.5 % (0-4); Lymphocytes # 0.7 K/mcL (0.6-4.6); Lymphocytes % 5.8 %; Mean Corpuscular HGB Conc 33.1 g/dL (31.6-35.5); Mean Corpuscular Hemoglobin 30.2 pg (28.0-33.3); Mean Corpuscular Volume 91.2 fL (83.0-100.0); Mean Platelet Volume 10.2 fL (9.4-12.4); Monocytes # 0.7 K/mcL (0.0-1.3); Monocytes % 5.7 %; Neutrophils # 11.2 K/mcL (1.6-8.9); Platelet Count 398 K/mcL (140-400); Red Blood Count 3.51 M/mcL (4.19-5.50); Red Cell Distribution Width 14.2 % (11.5-14.5); Segmented Neutrophils % 87.2 %
[2017-06-02 08:14] LABS: BUN/Creatinine Ratio 17 (6-26); Blood Urea Nitrogen 12 mg/dL (8-26); Calcium 9.1 mg/dL (8.6-10.8); Carbon Dioxide 26 mEq/L (19-29); Chloride 101 mEq/L (98-109); Glucose 102 mg/dL (70-99); Osmolality,Calculated 286 (280-300); Potassium 3.7 mEq/L (3.5-4.5); Sodium 138 mEq/L (136-145); eGFR For African Americans > 60; eGFR For Non-African Americans > 60
[2017-06-02] MEDS ORDERED: Lidocaine -MPF 1% 5 ML AMPUL INFILT ONE (08:17)
[2017-06-02] MEDS ORDERED: Lidocaine -MPF 1% 2 ML VIAL INFILT ONE (08:45)
[2017-06-02 08:48] LABS: Magnesium 1.6 mg/dL (1.7-2.2); Phosphorous 3.5 mg/dL (2.3-4.7)
[2017-06-02] MEDS: *HR* Heparin 5,000 UNIT/ML VIAL SQ SCH ×2 (09:48→20:34)
[2017-06-02] MEDS ORDERED: D10% in Water 500 ML IVC PRN (10:55)
--- NOTE | 2017-06-02 11:31 | General Surgery Progress Note ---
<MegaGallito gtz - Last Filed: 06/02/17 13:09> Date of Encounter: 06/02/17 Time of Encounter: 10:30 - Assessment and Plan (1) Acute appendicitis with appendiceal abscess Current Visit: Yes Status: Acute Postoperative day 4 of 1# ileocecectomy and #2 drainage of pelvic abscess. Procedure performed on 05/29/[address] Khan. phlegmon was present in RLQ. Appendix was completely necrotic; involved base of cecum. Patient tolerated procedure well. -Acute abdominal series x-ray was performed due to nausea, vomiting, abdominal distention. -NG tube will be inserted when die holder arrives at approximately 1400. -Nothing by mouth except one small cup of ice every 8 -Cepacol lozenges -Scheduled IV Toradol and acetaminophen for pain control. -IV when necessary Dilaudid. -Continue Reglan. -PICC and TPN in the setting of postop ileus. -IV antibiotics: Zosyn 3.375gm daily and Flagyl 500 mg q6hr. (2) DVT prophylaxis Current Visit: No Status: Acute Heparin 5000 SQ q12 Subjective Patient reports: still having pain Narrative: Patient was seen and examined but subsequently. Patient states that he is still having some abdominal pain. Patient's abdomen looks slightly more distended than normal. Abdomen is also firm. There is no blood or drainage from the wound dressing. Objective Vital Signs - Last 8 Hours Temp Pulse Resp BP Pulse Ox 06/02/17 10:07 98.9 F 86 14 124/76 94 06/02/17 07:16 98.2 F 79 15 130/77 95 06/02/17 04:43 98.5 F 86 16 122/77 95 Intake and Output 06/01/17 06/02/17 06/02/17 23:59 07:59 15:59 Intake Total 1400 / 1400 300 / 300 0 / 0 Output Total 550 / 550 900 / 900 400 / 400 Balance 850 / 850 -600 / -600 -400 / -400 Intake: IV Fluids 1400 / 1400 300 / 300 0.9 % Sodium Chloride 1,000 ML 1000 / 1000 @ 75 mls/hr IVC .[id number] [facility] Rx #:[id number] Ofirmev 1,000 mg/100 ml 1,000 200 / 200 100 / 100 mg In 100 ml @ 400 mls/hr IVPB Q6H [facility] Rx#:[id number] Flagyl Premix 500 MG/100 ML 500 100 / 100 100 / 100 mg In 100 ml @ 100 mls/hr IVPB Q8HR [facility] Rx#:[id number] Zosyn 3.375 GM In Dextrose 5% ( 100 / 100 100 / 100 Minibag+) 100 ML 100 ML @ 25 mls/hr IVPB Q8H [facility] Rx#: [id number] Oral 0 / 0 0 / 0 0 / 0 Output: Urine 550 / 550 700 / 700 400 / 400 Emesis 200 / 200 Other: Meal npo Weight 96.2 kg Blood Glucose* 106 101 104 Patient Weight 06/02/17 23:59 Weight 96.2 kg - General physical appearance well developed, well nourished, no distress - Neck Neck exam: no masses, trachea midline, no lymphadectomy - Respiratory normal expansion, normal respiratory effort, clear to auscultation - Cardiovascular Cardiovascular exam: Present: RRR, no murmurs/rubs/gallops - Abdomen Abdomen: Present: bowel sounds present, soft, distended Additional Comments: Patient's abdomen seems to be slightly more distended than normal. - Labs 06/02/17 06:10 06/02/17 06:10 Diabetes panel 06/02/17 Range/Units 06:10 Sodium 138 (136-145) mEq/L Potassium 3.7 (3.5-4.5) mEq/L Chloride 101 (98-109) mEq/L Carbon Dioxide 26 (19-29) mEq/L BUN 12 (8-26) mg/dL Creatinine 0.71 L (0.72-1.25) mg/dL Glucose 102 H (70-99) mg/dL Calcium 9.1 (8.6-10.8) mg/dL Calcium panel 06/02/17 Range/Units 06:10 Calcium 9.1 (8.6-10.8) mg/dL Phosphorus 3.5 (2.3-4.7) mg/dL Pituitary panel 06/02/17 Range/Units 06:10 Sodium 138 (136-145) mEq/L Potassium 3.7 (3.5-4.5) mEq/L Chloride 101 (98-109) mEq/L Carbon Dioxide 26 (19-29) mEq/L BUN 12 (8-26) mg/dL Creatinine 0.71 L (0.72-1.25) mg/dL Glucose 102 H (70-99) mg/dL Calcium 9.1 (8.6-10.8) mg/dL Adrenal panel 06/02/17 Range/Units 06:10 Sodium 138 (136-145) mEq/L Potassium 3.7 (3.5-4.5) mEq/L Chloride 101 (98-109) mEq/L Carbon Dioxide 26 (19-29) mEq/L BUN 12 (8-26) mg/dL Creatinine 0.71 L (0.72-1.25) mg/dL Glucose 102 H (70-99) mg/dL Calcium 9.1 (8.6-10.8) mg/dL - VTE Documentation of Mechanical Device: Intermittent pneumatic compression device Consult Discharge Plan - Plan Referrals: Johnny Khan MD [Partnered Physician] - <Johnny Khan - Last Filed: 06/02/17 18:37> Date of Encounter: 06/02/17 - Assessment and Plan (1) Acute appendicitis with appendiceal abscess Current Visit: Yes Status: Acute Objective Vital Signs - Last 8 Hours Temp Pulse Resp BP Pulse Ox 06/02/17 14:01 98.5 F 81 14 127/72 95 Intake and Output 06/02/17 06/02/17 06/02/17 07:59 15:59 23:59 Intake Total 300 / 300 350 / 350 1300 / 1300 Output Total 900 / 900 1250 / 1250 Balance -600 / -600 -900 / -900 1300 / 1300 Intake: IV Fluids 300 / 300 350 / 350 1300 / 1300 0.9 % Sodium Chloride 1,000 ML 1000 / 1000 @ 75 mls/hr IVC .[id number] [facility] Rx #:[id number] Ofirmev 1,000 mg/100 ml 1,000 100 / 100 100 / 100 100 / 100 mg In 100 ml @ 400 mls/hr IVPB Q6H [facility] Rx#:[id number] Magnesium Sulfate Premix 2gm/ 50 / 50 50mL 2 gm In 50 ml @ 48.077 mls /hr IVPB ONCE ONE Rx#: [id number] Flagyl Premix 500 MG/100 ML 500 100 / 100 100 / 100 100 / 100 mg In 100 ml @ 100 mls/hr IVPB Q8HR [facility] Rx#:[id number] Zosyn 3.375 GM In Dextrose 5% ( 100 / 100 100 / 100 100 / 100 Minibag+) 100 ML 100 ML @ 25 mls/hr IVPB Q8H [facility] Rx#: [id number] Oral 0 / 0 0 / 0 Output: Urine 700 / 700 1250 / 1250 Emesis 200 / 200 Other: Meal NPO NPO Weight 96.2 kg Blood Glucose* 101 104 95 Patient Weight 06/02/17 23:59 Weight 96.2 kg - Labs 06/02/17 06:10 06/02/17 06:10 Diabetes panel 06/02/17 Range/Units 06:10 Sodium 138 (136-145) mEq/L Potassium 3.7 (3.5-4.5) mEq/L Chloride 101 (98-109) mEq/L Carbon Dioxide 26 (19-29) mEq/L BUN 12 (8-26) mg/dL Creatinine 0.71 L (0.72-1.25) mg/dL Glucose 102 H (70-99) mg/dL Calcium 9.1 (8.6-10.8) mg/dL Calcium panel 06/02/17 Range/Units 06:10 Calcium 9.1 (8.6-10.8) mg/dL Phosphorus 3.5 (2.3-4.7) mg/dL Pituitary panel 06/02/17 Range/Units 06:10 Sodium 138 (136-145) mEq/L Potassium 3.7 (3.5-4.5) mEq/L Chloride 101 (98-109) mEq/L Carbon Dioxide 26 (19-29) mEq/L BUN 12 (8-26) mg/dL Creatinine 0.71 L (0.72-1.25) mg/dL Glucose 102 H (70-99) mg/dL Calcium 9.1 (8.6-10.8) mg/dL Adrenal panel 06/02/17 Range/Units 06:10 Sodium 138 (136-145) mEq/L Potassium 3.7 (3.5-4.5) mEq/L Chloride 101 (98-109) mEq/L Carbon Dioxide 26 (19-29) mEq/L BUN 12 (8-26) mg/dL Creatinine 0.71 L (0.72-1.25) mg/dL Glucose 102 H (70-99) mg/dL Calcium 9.1 (8.6-10.8) mg/dL - Attending Attestation I have personally performed a face to face evaluation on this patient. I have reviewed and agree with the care plan. History and Exam by me shows: The patient is seen and evaluated on morning rounds with the resident. I am concerned that the patient has developed postoperative ileus. He may require nasogastric tube. We will go ahead and place a PICC line and restart TPN. We will order laboratory evaluation tomorrow morning to look for any signs of infection.
[2017-06-02] MEDS ORDERED: Lidocaine Jelly 11 ml Syringe TP ONE (11:44)
--- NOTE | 2017-06-02 12:14 | Event Note ---
Date of Encounter: 06/02/17 Time of Encounter: 12:10 He reports increased abdominal discomfort and vomiting. He denies flatus since yesterday. Acute abdominal series x-ray obtained due to nausea, vomiting, and abdominal distention (results noted below). Per bedside RN, iron worker to return at approximately 1400. Will insert NG at that time (to ensure pt understands the process and need), unless patient vomits again between now and then at which time we will insert the NG tube. -NG to LIWS -NPO except 1 smal cup of ice Q8H -May have cepacol lozenges -Out of bed TID and ambulate in halls with assistance TID (may clam NG for ambulation) -Continue scheduled IV toradol and acetaminophen. -Continue IV prn dilaudid -Continue reglan -Replace magnesium -PICC and TPN in the setting of postoperative ileus IMPRESSION: 1. New since the prior exam is proximal to mid small bowel moderate gaseous distention with multiple air-fluid levels and relative decompression distally. A distal small bowel partial versus developing obstruction cannot be excluded. 2. No evidence of perforation.
--- NOTE | 2017-06-02 14:21 | Event Note ---
Date of Encounter: 06/02/17 Time of Encounter: 14:19 Investment Executive at bedside. Reviewed findings of ileus per x-ray and patient's clinical course. Patient verbalizes understanding and is agreeable to an NG tube placement. An NG was placed with out difficulty. He had immediate return of approximately 500 ML dark bilious material. A KUB for NG tube placement indicates projection over the proximal stomach. The tube was advanced aprox 5 more cm.
[2017-06-02] MEDS: 0.9 % Sodium Chloride 1,000 ML IVC SCH (16:50)
[2017-06-02] MEDS ORDERED: Clinimix E 5%-15% SOLUTION 2,000 ML with MVI, adult with vitamin K 10 ML IVC SCH (17:00)
[2017-06-02] MEDS: Pantoprazole 40 MG VIAL IVP SCH (20:34)
[2017-06-03] MEDS: MetroNIDAZOLE 500 MG/100 ML 500 MG/100 ML BAG IVPB SCH ×3 (00:55→18:11)
[2017-06-03] MEDS: Ketorolac 15 MG/ML VIAL IVP SCH ×4 (00:55→18:11)
[2017-06-03] MEDS: Metoclopramide 10 MG/2 ML VIAL IVP SCH ×3 (00:57→15:20)
[2017-06-03] MEDS: Ondansetron 4 MG/2 ML VIAL IVP PRN ×2 (01:08→07:35)
[2017-06-03] MEDS: *HR* HYDROmorphone (PF) 1 MG/ML SYRINGE IVP PRN ×9 (01:15→23:34)
[2017-06-03] MEDS: Acetaminophen IV 1,000 MG/100 ML INFUS..BTL IVPB SCH ×4 (03:29→21:37)
[2017-06-03] MEDS: 0.9 % Sodium Chloride 1,000 ML IVC SCH (04:43)
[2017-06-03] MEDS: Pantoprazole 40 MG VIAL IVP SCH ×2 (04:46→18:11)
[2017-06-03] MEDS: *HR* Heparin 5,000 UNIT/ML VIAL SQ SCH ×3 (04:46→18:11)
[2017-06-03] MEDS: Piperacillin/Tazobactam 3.375 GM in D5% in Water (Mini-Bag+) 100 ML IVPB SCH ×3 (05:07→21:12)
[2017-06-03 05:30] LABS: BUN/Creatinine Ratio 14 (6-26); Blood Urea Nitrogen 9 mg/dL (8-26); Calcium 8.5 mg/dL (8.6-10.8); Carbon Dioxide 27 mEq/L (19-29); Chloride 100 mEq/L (98-109); Glucose 147 mg/dL (70-99); Magnesium 1.6 mg/dL (1.7-2.2); Osmolality,Calculated 283 (280-300); Phosphorous 2.3 mg/dL (2.3-4.7); Potassium 3.3 mEq/L (3.5-4.5); Sodium 136 mEq/L (136-145); eGFR For African Americans > 60; eGFR For Non-African Americans > 60
[2017-06-03] MEDS ORDERED: Potassium Chloride 40 MEQ, Lidocaine 1% 2 ML in D5% in Water 500 ML IVPB ONE (08:48)
--- NOTE | 2017-06-03 08:54 | General Surgery Progress Note ---
<Marya Wills - Last Filed: 06/03/17 14:36> Date of Encounter: 06/03/17 Time of Encounter: 08:54 - Assessment and Plan (1) Acute appendicitis with appendiceal abscess Current Visit: Yes Status: Acute Postoperative day 5 of 1# ileocecectomy and #2 drainage of pelvic abscess. Procedure performed on 05/29/[address] Khan. phlegmon was present in RLQ. Appendix was completely necrotic; involved base of cecum. 06/02/2017: acute abdominal series was performed due to nausea, vomiting, and abdominal distention which revealed likely postoperative ileus. In NG tube was inserted which had immediate return of 600 ML's dark bilious material. 06/03/2017: Incisions are clean, dry, and intact. No evidence of infection or hernia noted. Small seroma noted to the RLQ area. Abdominal distention is improved from yesterday, he states his discomfort is controlled on the current regimen, noted to have approximately 1600 ML per NG in the last 24 hours. He continues to have faint in hypoactive bowel sounds, predominantly in the lower quadrants. He has not had a bowel movement to date and denies passing flatus. Plan: 1. Continue NG to low intermittent wall section. May clamp NG for 30 minutes or less TID for ambulation. Patient may shower. 2. Cepacol lozenges at bedside for comfort 3. Continue scheduled toradol and ofirmev for pain control while NPO 4. Continue PRN dilaudid for pain not relieved by the above 5. Continue Reglan 6. Continue TPN. Total IV fluids (MIV and TPN) when TPN at goal: 83.3 ml/hr 7. Continue IV antibiotics: Zosyn (Day 6) and Flagyl (Day 7) 8. Continue G.I. and DVT prophylaxis 9. Out of bed to chair at least TID and ambulate in the halls at least TID with assistance. 10. Continue incentive spirometry 10 times every hour while awake. (2) Postoperative ileus Current Visit: Yes Status: Acute Approximately 1600 ML's output over the last 24 hours. Faint and hypoactive bowel sounds. Reported overnight emesis. -NG to LIWS -NPO except 1 smal cup of ice Q8H -May have cepacol lozenges -Out of bed TID and ambulate in halls with assistance TID (may clamp NG for ambulation) -Continue scheduled IV toradol and acetaminophen. -Continue IV prn dilaudid -Continue reglan -Replace electrolytes as indicated -PICC and TPN in the setting of postoperative ileus -Dulcolax suppository x1 now. -Continue antiemetics. Will add scopolamine patch x1 rather than prn promethazine as he is on Reglan (3) Moderate malnutrition Current Visit: Yes Status: Acute Continue TPN management per nutrition. We'll continue to monitor. (4) Electrolyte abnormality Current Visit: Yes Status: Acute Replace electrolytes as indicated. Repeat a.m. labs. Continue to closely monitor. (5) DVT prophylaxis Current Visit: Yes Status: Acute EPCDs while in bed ambulate at least TID with assistance heparin injections 5000 units subacute b.i.d. Subjective Patient reports: no new complaints, still having pain, voiding w/o difficulty, no flatus, no bowel movement, nausea, afebrile Objective Vital Signs - Last 8 Hours Temp Pulse Resp BP Pulse Ox 06/03/17 06:49 97.2 F L 91 16 121/75 95 06/03/17 04:27 98.2 F 85 16 118/72 95 Intake and Output 06/02/17 06/03/17 06/03/17 23:59 07:59 15:59 Intake Total 1400 / 1400 1300 / 1300 Output Total 1200 / 1200 0 / 0 Balance 200 / 200 1300 / 1300 Intake: IV Fluids 1400 / 1400 1300 / 1300 0.9 % Sodium Chloride 1,000 ML 1000 / 1000 1000 / 1000 @ 75 mls/hr IVC .[id number] [facility] Rx #:[id number] Ofirmev 1,000 mg/100 ml 1,000 200 / 200 100 / 100 mg In 100 ml @ 400 mls/hr IVPB Q6H [facility] Rx#:[id number] Flagyl Premix 500 MG/100 ML 500 100 / 100 100 / 100 mg In 100 ml @ 100 mls/hr IVPB Q8HR [facility] Rx#:[id number] Zosyn 3.375 GM In Dextrose 5% ( 100 / 100 100 / 100 Minibag+) 100 ML 100 ML @ 25 mls/hr IVPB Q8H [facility] Rx#: [id number] Oral 0 / 0 Output: Urine 400 / 400 0 / 0 Gastric Drainage 800 / 800 Other: Meal NPO NPO Weight 70.1 kg Blood Glucose* 159 163 Patient Weight 06/03/17 23:59 Weight 70.1 kg - General physical appearance no distress, moderate pain, other (Seems a little confused this am, but difficult to assess without agile business analyst. Will re-evaluate) - Eyes normal ocular movement - ENT normal nares (Left nares NG noted) - Neck Neck exam: trachea midline, no venous distension - Cardiovascular Cardiovascular exam: Present: RRR, no murmurs/rubs/gallops - Abdomen Abdomen: Present: bowel sounds present (faint and hypoactive), soft, tender ( Right and Left lower quadrant) Hernia: none - Incision Incision: Present: clean and dry, intact - Integumentary no rash, no growths - Neurologic normal coordination, normal sensation - Musculoskeletal normal gait, normal posture - Psychiatric oriented to person, other (Could not recall why he was in the hospital, but when told he had surgery he states, "oh yes," and points to his abdomen. He had received dilaudid aprox less than 1 hour ago) - Labs 06/03/17 12:18 06/03/17 04:42 Diabetes panel 06/03/17 Range/Units 04:42 Sodium 136 (136-145) mEq/L Potassium 3.3 L (3.5-4.5) mEq/L Chloride 100 (98-109) mEq/L Carbon Dioxide 27 (19-29) mEq/L BUN 9 (8-26) mg/dL Creatinine 0.66 L (0.72-1.25) mg/dL Glucose 147 H (70-99) mg/dL Calcium 8.5 L (8.6-10.8) mg/dL Calcium panel 06/03/17 Range/Units 04:42 Calcium 8.5 L (8.6-10.8) mg/dL Phosphorus 2.3 (2.3-4.7) mg/dL Pituitary panel 06/03/17 Range/Units 04:42 Sodium 136 (136-145) mEq/L Potassium 3.3 L (3.5-4.5) mEq/L Chloride 100 (98-109) mEq/L Carbon Dioxide 27 (19-29) mEq/L BUN 9 (8-26) mg/dL Creatinine 0.66 L (0.72-1.25) mg/dL Glucose 147 H (70-99) mg/dL Calcium 8.5 L (8.6-10.8) mg/dL Adrenal panel 06/03/17 Range/Units 04:42 Sodium 136 (136-145) mEq/L Potassium 3.3 L (3.5-4.5) mEq/L Chloride 100 (98-109) mEq/L Carbon Dioxide 27 (19-29) mEq/L BUN 9 (8-26) mg/dL Creatinine 0.66 L (0.72-1.25) mg/dL Glucose 147 H (70-99) mg/dL Calcium 8.5 L (8.6-10.8) mg/dL - VTE Documentation of Mechanical Device: Intermittent pneumatic compression device Consult Discharge Plan - Plan Referrals: Johnny Khan MD [Partnered Physician] - <Johnny Khan - Last Filed: 06/04/17 13:44> Date of Encounter: 06/04/17 - Assessment and Plan (1) Acute appendicitis with appendiceal abscess Current Visit: Yes Status: Acute Objective Vital Signs - Last 8 Hours Temp Pulse Resp BP Pulse Ox 06/04/17 11:28 97.8 F 72 16 118/73 95 06/04/17 06:57 98.4 F 72 16 128/75 95 Intake and Output 06/03/17 06/04/17 06/04/17 23:59 07:59 15:59 Intake Total 300 / 300 200 / 200 100 / 100 Output Total 700 / 700 800 / 800 600 / 600 Balance -400 / -400 -600 / -600 -500 / -500 Intake: IV Fluids 300 / 300 200 / 200 100 / 100 Ofirmev 1,000 mg/100 ml 1,000 100 / 100 100 / 100 mg In 100 ml @ 400 mls/hr IVPB Q6H [facility] Rx#:[id number] Flagyl Premix 500 MG/100 ML 500 100 / 100 100 / 100 mg In 100 ml @ 100 mls/hr IVPB Q8HR [facility] Rx#:[id number] Zosyn 3.375 GM In Dextrose 5% ( 100 / 100 100 / 100 Minibag+) 100 ML 100 ML @ 25 mls/hr IVPB Q8H [facility] Rx#: [id number] Oral 0 / 0 0 / 0 0 / 0 Output: Urine 700 / 700 800 / 800 600 / 600 Gastric Drainage 0 / 0 0 / 0 Other: Meal NPO NPO Percent of Meal Consumed 0% Stool Size Small Stool Consistency formed Stool Color Brown # Bowel Movements 1 Weight 70.3 kg Blood Glucose* 125 120 108 Patient Weight 06/04/17 23:59 Weight 70.3 kg - Labs 06/04/17 04:49 06/04/17 04:49 Diabetes panel 06/04/17 Range/Units 04:49 Sodium 137 (136-145) mEq/L Potassium 3.2 L (3.5-4.5) mEq/L Chloride 102 (98-109) mEq/L Carbon Dioxide 28 (19-29) mEq/L BUN 8 (8-26) mg/dL Creatinine 0.69 L (0.72-1.25) mg/dL Glucose 114 H (70-99) mg/dL Calcium 8.5 L (8.6-10.8) mg/dL AST 72 H (5-34) Units/L ALT 57 H (0-55) Units/L Alkaline Phosphatase 111 (38-126) Units/L Albumin 2.2 L (3.5-5.0) g/dL Triglycerides 154 H (< 150) mg/dL Calcium panel 06/04/17 Range/Units 04:49 Calcium 8.5 L (8.6-10.8) mg/dL Phosphorus 3.0 (2.3-4.7) mg/dL Albumin 2.2 L (3.5-5.0) g/dL Pituitary panel 06/04/17 Range/Units 04:49 Sodium 137 (136-145) mEq/L Potassium 3.2 L (3.5-4.5) mEq/L Chloride 102 (98-109) mEq/L Carbon Dioxide 28 (19-29) mEq/L BUN 8 (8-26) mg/dL Creatinine 0.69 L (0.72-1.25) mg/dL Glucose 114 H (70-99) mg/dL Calcium 8.5 L (8.6-10.8) mg/dL Adrenal panel 06/04/17 Range/Units 04:49 Sodium 137 (136-145) mEq/L Potassium 3.2 L (3.5-4.5) mEq/L Chloride 102 (98-109) mEq/L Carbon Dioxide 28 (19-29) mEq/L BUN 8 (8-26) mg/dL Creatinine 0.69 L (0.72-1.25) mg/dL Glucose 114 H (70-99) mg/dL Calcium 8.5 L (8.6-10.8) mg/dL Total Bilirubin 0.4 (0.2-1.2) mg/dL AST 72 H (5-34) Units/L ALT 57 H (0-55) Units/L Alkaline Phosphatase 111 (38-126) Units/L Albumin 2.2 L (3.5-5.0) g/dL - Attending Attestation I have personally performed a face to face evaluation on this patient. I have reviewed and agree with the care plan. History and Exam by me shows: The patient is seen and evaluated on morning rounds. His care is discussed the clinical nurse practitioner. He required nasogastric tube yesterday for postoperative ileus. He now is having bowel movement and has good bowel sounds. We will try and get nasogastric tube out later today. Johnny Khan MD FACS
[2017-06-03] MEDS ORDERED: Bisacodyl 10 MG RECTAL SUPPOSITORY RC SCH (09:00)
[2017-06-03] MEDS ORDERED: Scopolamine Patch 1.5 MG PATCH.TD72 TD ONE (09:40)
[2017-06-03] MEDS ORDERED: 0.9 % Sodium Chloride 1,000 ML IVC SCH (09:45)
[2017-06-03] MEDS: Ondansetron 4 MG/2 ML VIAL IVP SCH ×3 (11:32→21:12)
[2017-06-03 12:43] LABS: Basophils % 0.2 %; Eosinophils # 0.1 K/mcL (0.0-0.6); Eosinophils % 0.7 %; Hematocrit 32.4 % (37.5-50.1); Hemoglobin 10.5 g/dL (12.9-16.9); Immature Granulocytes % 0.4 % (0-4); Lymphocytes % 8.1 %; Mean Corpuscular HGB Conc 32.4 g/dL (31.6-35.5); Mean Corpuscular Hemoglobin 29.7 pg (28.0-33.3); Mean Corpuscular Volume 91.5 fL (83.0-100.0); Mean Platelet Volume 9.8 fL (9.4-12.4); Monocytes # 0.7 K/mcL (0.0-1.3); Monocytes % 5.9 %; Platelet Count 369 K/mcL (140-400); Red Blood Count 3.54 M/mcL (4.19-5.50); Segmented Neutrophils % 84.7 %
[2017-06-03] MEDS ORDERED: Clinimix E 5%-15% SOLUTION 2,000 ML with MVI, adult with vitamin K 10 ML, Magnesium S... IVC SCH (17:00)
[2017-06-04] MEDS: *HR* HYDROmorphone (PF) 1 MG/ML SYRINGE IVP PRN ×6 (03:14→22:28)
[2017-06-04 05:38] LABS: Alanine Aminotransferase 57 Units/L (0-55); Albumin 2.2 g/dL (3.5-5.0); Albumin/Globulin Ratio 0.5 (1.1-2.2); Alkaline Phosphatase 111 Units/L (38-126); Aspartate Amino Transferase 72 Units/L (5-34); BUN/Creatinine Ratio 12 (6-26); Bilirubin,Total 0.4 mg/dL (0.2-1.2); Blood Urea Nitrogen 8 mg/dL (8-26); Calcium 8.5 mg/dL (8.6-10.8); Carbon Dioxide 28 mEq/L (19-29); Chloride 102 mEq/L (98-109); Globulin 4.4 g/dL (2.4-3.5); Glucose 114 mg/dL (70-99); Magnesium 1.9 mg/dL (1.7-2.2); Osmolality,Calculated 283 (280-300); Potassium 3.2 mEq/L (3.5-4.5); Sodium 137 mEq/L (136-145); Total Protein 6.6 g/dL (6.0-8.3); Triglycerides 154 mg/dL (< 150); eGFR For African Americans > 60; eGFR For Non-African Americans > 60
[2017-06-04 05:57] LABS: Basophils % 0.2 %; Eosinophils # 0.2 K/mcL (0.0-0.6); Eosinophils % 1.7 %; Hematocrit 30.5 % (37.5-50.1); Hemoglobin 9.8 g/dL (12.9-16.9); Immature Granulocytes % 0.6 % (0-4); Lymphocytes # 1.1 K/mcL (0.6-4.6); Lymphocytes % 8.6 %; Mean Corpuscular HGB Conc 32.1 g/dL (31.6-35.5); Mean Corpuscular Hemoglobin 29.9 pg (28.0-33.3); Mean Platelet Volume 10.6 fL (9.4-12.4); Monocytes # 0.8 K/mcL (0.0-1.3); Monocytes % 5.9 %; Neutrophils # 10.9 K/mcL (1.6-8.9); Platelet Count 375 K/mcL (140-400); Red Blood Count 3.28 M/mcL (4.19-5.50); Red Cell Distribution Width 14.2 % (11.5-14.5)
[2017-06-04] MEDS: Acetaminophen IV 1,000 MG/100 ML INFUS..BTL IVPB SCH ×3 (06:20→17:24)
[2017-06-04] MEDS: *HR* Heparin 5,000 UNIT/ML VIAL SQ SCH ×2 (06:21→17:25)
[2017-06-04] MEDS: Pantoprazole 40 MG VIAL IVP SCH ×2 (06:21→20:17)
[2017-06-04] MEDS: Piperacillin/Tazobactam 3.375 GM in D5% in Water (Mini-Bag+) 100 ML IVPB SCH (06:22)
[2017-06-04] MEDS: Ketorolac 15 MG/ML VIAL IVP SCH ×4 (06:22→17:25)
[2017-06-04] MEDS: MetroNIDAZOLE 500 MG/100 ML 500 MG/100 ML BAG IVPB SCH ×3 (07:37→15:01)
[2017-06-04] MEDS: Ondansetron 4 MG/2 ML VIAL IVP SCH ×5 (07:39→22:28)
--- NOTE | 2017-06-04 09:32 | General Surgery Progress Note ---
<Gallito Ayoub - Last Filed: 06/04/17 11:44> Date of Encounter: 06/04/17 Time of Encounter: 09:30 - Assessment and Plan (1) Acute appendicitis with appendiceal abscess Current Visit: Yes Status: Acute Postoperative day 6 of 1# ileocecectomy and #2 drainage of pelvic abscess. Procedure performed on 05/29/[address] Khan. phlegmon was present in RLQ. Appendix was completely necrotic; involved base of cecum. Patient tolerated procedure well. On 06/02/17, acute abdominal series was performed due to patient complaining of nausea, vomiting, abdominal distention. X-ray revealed presence of postop ileus. NG tube was inserted; return of 600 mL of dark bilious material. This morning, patient states that he feels better. Abdomen is still somewhat distended with hypoactive bowel sounds. Plan: -NG tube still inserted. May clamp for 30 minutes or less 3 times a day for ambulation. The patient may shower. -Pts. NG tube can be switched to osborne. -Scheduled IV Toradol for pain control. -When necessary Dilaudid for breakthrough pain. -Continue Reglan. -Continue TPN. -Continue IV antibiotics: Day 6 of Zosyn 3.375 g daily and day 7 of Flagyl 500 mg every 6 hours. -Incentive spirometry. (2) Postoperative ileus Current Visit: Yes Status: Acute Patient's abdomen still appears distended. Hypoactive bowel sounds. -NG tube inserted. -Nothing by mouth except one small cup of ice every 8 hours. -Continue Reglan. -Replace electrolytes as needed. (3) Moderate malnutrition Current Visit: Yes Status: Acute Continue TPN management per nutrition. (4) Transaminitis Current Visit: Yes Status: Acute Patient's LFTs were elevated this morning. -AST 72, ALT 57. -Last set of labs drawn on 05/28/17 were within normal limits. -Repeat AM labs. (5) DVT prophylaxis Current Visit: Yes Status: Acute EPP CDs while in bed. -Ambulate at least 3 times a day with assistance. -Heparin 5000 SQ q12 Subjective Patient reports: feels better, still having pain, pain is less Narrative: Patient was seen and examined at bedside this morning. Patient reports that he is feeling somewhat better compared to yesterday. Denies nausea and vomiting. Objective Vital Signs - Last 8 Hours Temp Pulse Resp BP Pulse Ox 06/04/17 06:57 98.4 F 72 16 128/75 95 06/04/17 03:19 98.6 F 79 15 124/74 94 Intake and Output 06/03/17 06/04/17 06/04/17 23:59 07:59 15:59 Intake Total 300 / 300 100 / 100 100 / 100 Output Total 700 / 700 800 / 800 600 / 600 Balance -400 / -400 -700 / -700 -500 / -500 Intake: IV Fluids 300 / 300 100 / 100 100 / 100 Ofirmev 1,000 mg/100 ml 1,000 100 / 100 mg In 100 ml @ 400 mls/hr IVPB Q6H [facility] Rx#:[id number] Flagyl Premix 500 MG/100 ML 500 100 / 100 100 / 100 mg In 100 ml @ 100 mls/hr IVPB Q8HR [facility] Rx#:[id number] Zosyn 3.375 GM In Dextrose 5% ( 100 / 100 100 / 100 Minibag+) 100 ML 100 ML @ 25 mls/hr IVPB Q8H [facility] Rx#: [id number] Oral 0 / 0 0 / 0 Output: Urine 700 / 700 800 / 800 600 / 600 Gastric Drainage 0 / 0 Other: Meal NPO Stool Size Small Stool Consistency formed Stool Color Brown # Bowel Movements 1 Weight 70.3 kg Blood Glucose* 125 120 Patient Weight 06/04/17 23:59 Weight 70.3 kg - General physical appearance well developed, well nourished, no distress - Neck Neck exam: no masses, trachea midline, no lymphadectomy - Respiratory normal expansion, normal respiratory effort, clear to auscultation - Cardiovascular Cardiovascular exam: Present: RRR, no murmurs/rubs/gallops - Abdomen Abdomen: Present: bowel sounds present, distended (Bowel sounds are slightly diminished) - Labs 06/04/17 04:49 06/04/17 04:49 Diabetes panel 06/04/17 Range/Units 04:49 Sodium 137 (136-145) mEq/L Potassium 3.2 L (3.5-4.5) mEq/L Chloride 102 (98-109) mEq/L Carbon Dioxide 28 (19-29) mEq/L BUN 8 (8-26) mg/dL Creatinine 0.69 L (0.72-1.25) mg/dL Glucose 114 H (70-99) mg/dL Calcium 8.5 L (8.6-10.8) mg/dL AST 72 H (5-34) Units/L ALT 57 H (0-55) Units/L Alkaline Phosphatase 111 (38-126) Units/L Albumin 2.2 L (3.5-5.0) g/dL Triglycerides 154 H (< 150) mg/dL Calcium panel 06/04/17 Range/Units 04:49 Calcium 8.5 L (8.6-10.8) mg/dL Phosphorus 3.0 (2.3-4.7) mg/dL Albumin 2.2 L (3.5-5.0) g/dL Pituitary panel 06/04/17 Range/Units 04:49 Sodium 137 (136-145) mEq/L Potassium 3.2 L (3.5-4.5) mEq/L Chloride 102 (98-109) mEq/L Carbon Dioxide 28 (19-29) mEq/L BUN 8 (8-26) mg/dL Creatinine 0.69 L (0.72-1.25) mg/dL Glucose 114 H (70-99) mg/dL Calcium 8.5 L (8.6-10.8) mg/dL Adrenal panel 06/04/17 Range/Units 04:49 Sodium 137 (136-145) mEq/L Potassium 3.2 L (3.5-4.5) mEq/L Chloride 102 (98-109) mEq/L Carbon Dioxide 28 (19-29) mEq/L BUN 8 (8-26) mg/dL Creatinine 0.69 L (0.72-1.25) mg/dL Glucose 114 H (70-99) mg/dL Calcium 8.5 L (8.6-10.8) mg/dL Total Bilirubin 0.4 (0.2-1.2) mg/dL AST 72 H (5-34) Units/L ALT 57 H (0-55) Units/L Alkaline Phosphatase 111 (38-126) Units/L Albumin 2.2 L (3.5-5.0) g/dL - VTE Documentation of Mechanical Device: Intermittent pneumatic compression device Consult Discharge Plan - Plan Referrals: Johnny Khan MD [Partnered Physician] - <Erin,Johnny T - Last Filed: 06/04/17 13:52> Date of Encounter: 06/04/17 - Assessment and Plan (1) Acute appendicitis with appendiceal abscess Current Visit: Yes Status: Acute Objective Vital Signs - Last 8 Hours Temp Pulse Resp BP Pulse Ox 06/04/17 11:28 97.8 F 72 16 118/73 95 06/04/17 06:57 98.4 F 72 16 128/75 95 Intake and Output 06/03/17 06/04/17 06/04/17 23:59 07:59 15:59 Intake Total 300 / 300 200 / 200 100 / 100 Output Total 700 / 700 800 / 800 600 / 600 Balance -400 / -400 -600 / -600 -500 / -500 Intake: IV Fluids 300 / 300 200 / 200 100 / 100 Ofirmev 1,000 mg/100 ml 1,000 100 / 100 100 / 100 mg In 100 ml @ 400 mls/hr IVPB Q6H [facility] Rx#:[id number] Flagyl Premix 500 MG/100 ML 500 100 / 100 100 / 100 mg In 100 ml @ 100 mls/hr IVPB Q8HR [facility] Rx#:[id number] Zosyn 3.375 GM In Dextrose 5% ( 100 / 100 100 / 100 Minibag+) 100 ML 100 ML @ 25 mls/hr IVPB Q8H [facility] Rx#: [id number] Oral 0 / 0 0 / 0 0 / 0 Output: Urine 700 / 700 800 / 800 600 / 600 Gastric Drainage 0 / 0 0 / 0 Other: Meal NPO NPO Percent of Meal Consumed 0% Stool Size Small Stool Consistency formed Stool Color Brown # Bowel Movements 1 Weight 70.3 kg Blood Glucose* 125 120 108 Patient Weight 06/04/17 23:59 Weight 70.3 kg - Labs 06/04/17 04:49 06/04/17 04:49 Diabetes panel 06/04/17 Range/Units 04:49 Sodium 137 (136-145) mEq/L Potassium 3.2 L (3.5-4.5) mEq/L Chloride 102 (98-109) mEq/L Carbon Dioxide 28 (19-29) mEq/L BUN 8 (8-26) mg/dL Creatinine 0.69 L (0.72-1.25) mg/dL Glucose 114 H (70-99) mg/dL Calcium 8.5 L (8.6-10.8) mg/dL AST 72 H (5-34) Units/L ALT 57 H (0-55) Units/L Alkaline Phosphatase 111 (38-126) Units/L Albumin 2.2 L (3.5-5.0) g/dL Triglycerides 154 H (< 150) mg/dL Calcium panel 06/04/17 Range/Units 04:49 Calcium 8.5 L (8.6-10.8) mg/dL Phosphorus 3.0 (2.3-4.7) mg/dL Albumin 2.2 L (3.5-5.0) g/dL Pituitary panel 06/04/17 Range/Units 04:49 Sodium 137 (136-145) mEq/L Potassium 3.2 L (3.5-4.5) mEq/L Chloride 102 (98-109) mEq/L Carbon Dioxide 28 (19-29) mEq/L BUN 8 (8-26) mg/dL Creatinine 0.69 L (0.72-1.25) mg/dL Glucose 114 H (70-99) mg/dL Calcium 8.5 L (8.6-10.8) mg/dL Adrenal panel 06/04/17 Range/Units 04:49 Sodium 137 (136-145) mEq/L Potassium 3.2 L (3.5-4.5) mEq/L Chloride 102 (98-109) mEq/L Carbon Dioxide 28 (19-29) mEq/L BUN 8 (8-26) mg/dL Creatinine 0.69 L (0.72-1.25) mg/dL Glucose 114 H (70-99) mg/dL Calcium 8.5 L (8.6-10.8) mg/dL Total Bilirubin 0.4 (0.2-1.2) mg/dL AST 72 H (5-34) Units/L ALT 57 H (0-55) Units/L Alkaline Phosphatase 111 (38-126) Units/L Albumin 2.2 L (3.5-5.0) g/dL - Attending Attestation I have personally performed a face to face evaluation on this patient. I have reviewed and agree with the care plan. History and Exam by me shows: The patient was seen and evaluated on morning rounds. I felt like he was making progress yesterday he did have a bowel movement later in the day yesterday. I thought we could get the nasogastric tube out yesterday evening but require more nasogastric tube drainage for nausea. We will try and get the angiogram today. Johnny Khan MD FACS
[2017-06-04] MEDS ORDERED: Potassium Chloride 40 MEQ, Lidocaine 1% 2 ML in D5% in Water 500 ML IVPB ONE (09:47)
[2017-06-04] MEDS ORDERED: Bisacodyl 10 MG RECTAL SUPPOSITORY RC SCH (10:30)
[2017-06-04] MEDS: Piperacillin/Tazobactam 3.375 GM in D5% in Water 50 ML IVPB SCH ×2 (11:25→22:26)
[2017-06-04] MEDS ORDERED: Clinimix E 5%-15% SOLUTION 2,000 ML with MVI, adult with vitamin K 10 ML, Magnesium S... IVC SCH (17:00)
[2017-06-04] MEDS ORDERED: Bisacodyl 10 MG RECTAL SUPPOSITORY RC ONE (22:15)
[2017-06-05] MEDS: Ketorolac 15 MG/ML VIAL IVP SCH ×4 (00:42→17:57)
[2017-06-05] MEDS: MetroNIDAZOLE 500 MG/100 ML 500 MG/100 ML BAG IVPB SCH ×3 (00:42→17:29)
[2017-06-05] MEDS: *HR* HYDROmorphone (PF) 1 MG/ML SYRINGE IVP PRN ×6 (00:43→23:41)
[2017-06-05] MEDS: Ondansetron 4 MG/2 ML VIAL IVP SCH ×7 (00:43→22:53)
[2017-06-05] MEDS: Piperacillin/Tazobactam 3.375 GM in D5% in Water 50 ML IVPB SCH ×3 (03:35→20:43)
[2017-06-05 04:32] LABS: Basophils % 0.2 %; Eosinophils # 0.2 K/mcL (0.0-0.6); Eosinophils % 1.7 %; Hematocrit 31.9 % (37.5-50.1); Hemoglobin 10.4 g/dL (12.9-16.9); Immature Granulocytes % 0.6 % (0-4); Lymphocytes # 1.2 K/mcL (0.6-4.6); Lymphocytes % 10.8 %; Mean Corpuscular HGB Conc 32.6 g/dL (31.6-35.5); Mean Corpuscular Hemoglobin 30.3 pg (28.0-33.3); Mean Platelet Volume 10.3 fL (9.4-12.4); Monocytes # 0.6 K/mcL (0.0-1.3); Monocytes % 5.5 %; Platelet Count 364 K/mcL (140-400); Red Blood Count 3.43 M/mcL (4.19-5.50); Red Cell Distribution Width 14.2 % (11.5-14.5); Segmented Neutrophils % 81.2 %
[2017-06-05 05:28] LABS: Magnesium 1.8 mg/dL (1.7-2.2); Phosphorous 3.4 mg/dL (2.3-4.7)
[2017-06-05 05:34] LABS: Alanine Aminotransferase 89 Units/L (0-55); Albumin 2.5 g/dL (3.5-5.0); Albumin/Globulin Ratio 0.6 (1.1-2.2); Alkaline Phosphatase 135 Units/L (38-126); Aspartate Amino Transferase 90 Units/L (5-34); BUN/Creatinine Ratio 14 (6-26); Bilirubin,Direct 0.2 mg/dL (0.0-0.5); Bilirubin,Indirect 0.1 mg/dL (0.0-1.2); Bilirubin,Total 0.3 mg/dL (0.2-1.2); Blood Urea Nitrogen 9 mg/dL (8-26); Calcium 8.8 mg/dL (8.6-10.8); Carbon Dioxide 22 mEq/L (19-29); Chloride 101 mEq/L (98-109); Globulin 4.1 g/dL (2.4-3.5); Glucose 117 mg/dL (70-99); Osmolality,Calculated 278 (280-300); Potassium 3.6 mEq/L (3.5-4.5); Sodium 134 mEq/L (136-145); Total Protein 6.6 g/dL (6.0-8.3); eGFR For African Americans > 60; eGFR For Non-African Americans > 60
[2017-06-05] MEDS: *HR* Heparin 5,000 UNIT/ML VIAL SQ SCH ×2 (05:56→17:35)
[2017-06-05] MEDS: Pantoprazole 40 MG VIAL IVP SCH (05:56)
--- NOTE | 2017-06-05 11:42 | General Surgery Progress Note ---
<Gallito Ayoub - Last Filed: 06/05/17 11:48> Date of Encounter: 06/05/17 Time of Encounter: 11:00 - Assessment and Plan (1) Acute appendicitis with appendiceal abscess Current Visit: Yes Status: Acute Postoperative day 7 of 1# ileocecectomy and #2 drainage of pelvic abscess. Procedure performed on 05/29/[address] Khan. phlegmon was present in RLQ. Appendix was completely necrotic; involved base of cecum. Patient tolerated procedure well. On 06/02/17, acute abdominal series was performed due to patient complaining of nausea, vomiting, abdominal distention. X-ray revealed presence of postop ileus. NG tube was inserted; return of 600 mL of dark bilious material. This morning, patient states that he feels better. Plan: -NG tube has been removed. Patient's abdominal distention has subsided. -Toradol for pain control. -Continue Reglan. -Continue TPN. -Continue IV antibiotics: Day 7 of Zosyn 3.375 g daily and day 8 of Flagyl 500 mg every 6 hours. -Incentive spirometry. (2) Postoperative ileus Current Visit: Yes Status: Acute NG tube has been removed. -Abdominal distention has subsided. -Normoactive bowel sounds in all 4 quadrants. -Continue clear liquid diet. (3) Transaminitis Current Visit: Yes Status: Acute Patient's LFTs were elevated this morning. -AST 90, ALT 89. -Last set of labs drawn on 05/28/17 were within normal limits. -Repeat AM labs. (4) DVT prophylaxis Current Visit: Yes Status: Acute EPP CDs while in bed. -Ambulate at least 3 times a day with assistance. -Heparin 5000 SQ q12 Subjective Patient reports: no new complaints, feels better, still having pain, pain is less Narrative: Patient was seen and examined at bedside this morning. Patient is feeling much better today. He states that his abdominal pain and distention have improved. He denies having any episodes of nausea or vomiting. He has no new complaints at this time. Objective Vital Signs - Last 8 Hours Temp Pulse Resp BP Pulse Ox 06/05/17 10:26 98.1 F 68 14 109/69 96 06/05/17 07:13 98.8 F 71 14 118/71 96 Intake and Output 11/10/1606/05/17 06/05/17 23:59 07:59 15:59 Intake Total 100 / 100 500 / 500 0 / 0 Output Total 525 / 525 1300 / 1300 0 / 0 Balance -425 / -425 -800 / -800 0 / 0 Intake: IV Fluids 100 / 100 400 / 400 Intralipid 20% 250 ML @ 21 mls/ 250 / 250 hr IVPB DAILY@1700 [facility] Rx#: [id number] Flagyl Premix 500 MG/100 ML 500 100 / 100 100 / 100 mg In 100 ml @ 100 mls/hr IVPB Q8HR [facility] Rx#:[id number] Zosyn 3.375 GM In Dextrose 5% ( 50 / 50 ADD-[place]) 50 ML @ 12.5 mls/ hr IVPB Q8H [facility] Rx#:[id number] Oral 0 / 0 100 / 100 0 / 0 Output: Urine 525 / 525 1300 / 1300 0 / 0 Other: Meal Refused Stool Size Small Stool Color Brown Weight 70.3 kg Blood Glucose* 129 129 118 Patient Weight 06/05/17 23:59 Weight 70.3 kg - General physical appearance well developed, well nourished, no distress - Neck Neck exam: no masses, trachea midline, no lymphadectomy - Respiratory normal expansion, normal respiratory effort, clear to auscultation - Cardiovascular Cardiovascular exam: Present: RRR, no murmurs/rubs/gallops - Abdomen Abdomen: Present: bowel sounds present, soft, non tender Additional Comments: Patient's wound dressing has been removed. Incision is clean, dry, and intact. No redness, drainage, or signs of infection. - Incision Incision: Present: clean and dry, intact - Psychiatric speech is normal - Labs 06/05/17 03:26 06/05/17 03:26 Diabetes panel 06/05/17 Range/Units 03:26 Sodium 134 L (136-145) mEq/L Potassium 3.6 (3.5-4.5) mEq/L Chloride 101 (98-109) mEq/L Carbon Dioxide 22 (19-29) mEq/L BUN 9 (8-26) mg/dL Creatinine 0.63 L (0.72-1.25) mg/dL Glucose 117 H (70-99) mg/dL Calcium 8.8 (8.6-10.8) mg/dL AST 90 H (5-34) Units/L ALT 89 H (0-55) Units/L Alkaline Phosphatase 135 H (38-126) Units/L Albumin 2.5 L (3.5-5.0) g/dL Calcium panel 06/05/17 Range/Units 03:26 Calcium 8.8 (8.6-10.8) mg/dL Phosphorus 3.4 (2.3-4.7) mg/dL Albumin 2.5 L (3.5-5.0) g/dL Pituitary panel 06/05/17 Range/Units 03:26 Sodium 134 L (136-145) mEq/L Potassium 3.6 (3.5-4.5) mEq/L Chloride 101 (98-109) mEq/L Carbon Dioxide 22 (19-29) mEq/L BUN 9 (8-26) mg/dL Creatinine 0.63 L (0.72-1.25) mg/dL Glucose 117 H (70-99) mg/dL Calcium 8.8 (8.6-10.8) mg/dL Adrenal panel 06/05/17 Range/Units 03:26 Sodium 134 L (136-145) mEq/L Potassium 3.6 (3.5-4.5) mEq/L Chloride 101 (98-109) mEq/L Carbon Dioxide 22 (19-29) mEq/L BUN 9 (8-26) mg/dL Creatinine 0.63 L (0.72-1.25) mg/dL Glucose 117 H (70-99) mg/dL Calcium 8.8 (8.6-10.8) mg/dL Total Bilirubin 0.3 (0.2-1.2) mg/dL AST 90 H (5-34) Units/L ALT 89 H (0-55) Units/L Alkaline Phosphatase 135 H (38-126) Units/L Albumin 2.5 L (3.5-5.0) g/dL - VTE Documentation of Mechanical Device: Intermittent pneumatic compression device Consult Discharge Plan - Plan Referrals: Johnny Khan MD [Partnered Physician] - <Angie Seymour - Last Filed: 06/05/17 17:07> Date of Encounter: 06/05/17 Time of Encounter: 16:05 - Assessment and Plan (1) Acute appendicitis with appendiceal abscess Current Visit: Yes Status: Acute continue Abx continue clears - discussed with patient not doing so much liquid so fast but sipping on clears continue TPN until adequate po intake patient needs to get out of bed to chair for all meals ok to shower (2) Moderate malnutrition Current Visit: Yes Status: Acute continue TPN until patient taking in adequate po by mouth Subjective Narrative: patient seen with park interpreter, he drank most of his clears for lunch then got sick and had emesis. He is passing flatus and had a bm yesterday. He is still having abdominal pain and some nausea Objective Vital Signs - Last 8 Hours Temp Pulse Resp BP Pulse Ox 06/05/17 14:47 98.8 F 68 14 128/75 96 06/05/17 10:26 98.1 F 68 14 109/69 96 Intake and Output 06/05/17 06/05/17 06/05/17 07:59 15:59 23:59 Intake Total 550 / 550 240 / 240 Output Total 1300 / 1300 450 / 450 Balance -750 / -750 -210 / -210 Intake: IV Fluids 450 / 450 Intralipid 20% 250 ML @ 21 mls/ 250 / 250 hr IVPB DAILY@1700 [facility] Rx#: [id number] Flagyl Premix 500 MG/100 ML 500 100 / 100 mg In 100 ml @ 100 mls/hr IVPB Q8HR [facility] Rx#:[id number] Zosyn 3.375 GM In Dextrose 5% ( 100 / 100 ADD-[place]) 50 ML @ 12.5 mls/ hr IVPB Q8H [facility] Rx#:[id number] Oral 100 / 100 240 / 240 Output: Urine 1300 / 1300 450 / 450 Other: Meal Refused Percent of Meal Consumed 0% Stool Size Small Stool Color Brown Weight 70.3 kg Blood Glucose* 129 132 Patient Weight 06/05/17 23:59 Weight 70.3 kg - General physical appearance well developed, well nourished, no distress - Eyes PERRL, normal ocular movement - ENT normal mucosa, normocephalic - Neck Neck exam: trachea midline - Respiratory normal expansion, clear to auscultation - Cardiovascular Cardiovascular exam: Present: RRR - Abdomen Abdomen: Present: bowel sounds present, soft, tender (near incision, incision C/ D/I) - Incision Incision: Present: clean and dry, intact - Integumentary no rash, no growths - Neurologic CN 2-12 grossly intact - Musculoskeletal normal posture - Psychiatric oriented to time, oriented to person, memory intact - Labs 06/05/17 03:26 06/05/17 03:26 Diabetes panel 06/05/17 Range/Units 03:26 Sodium 134 L (136-145) mEq/L Potassium 3.6 (3.5-4.5) mEq/L Chloride 101 (98-109) mEq/L Carbon Dioxide 22 (19-29) mEq/L BUN 9 (8-26) mg/dL Creatinine 0.63 L (0.72-1.25) mg/dL Glucose 117 H (70-99) mg/dL Calcium 8.8 (8.6-10.8) mg/dL AST 90 H (5-34) Units/L ALT 89 H (0-55) Units/L Alkaline Phosphatase 135 H (38-126) Units/L Albumin 2.5 L (3.5-5.0) g/dL Calcium panel 06/05/17 Range/Units 03:26 Calcium 8.8 (8.6-10.8) mg/dL Phosphorus 3.4 (2.3-4.7) mg/dL Albumin 2.5 L (3.5-5.0) g/dL Pituitary panel 06/05/17 Range/Units 03:26 Sodium 134 L (136-145) mEq/L Potassium 3.6 (3.5-4.5) mEq/L Chloride 101 (98-109) mEq/L Carbon Dioxide 22 (19-29) mEq/L BUN 9 (8-26) mg/dL Creatinine 0.63 L (0.72-1.25) mg/dL Glucose 117 H (70-99) mg/dL Calcium 8.8 (8.6-10.8) mg/dL Adrenal panel 06/05/17 Range/Units 03:26 Sodium 134 L (136-145) mEq/L Potassium 3.6 (3.5-4.5) mEq/L Chloride 101 (98-109) mEq/L Carbon Dioxide 22 (19-29) mEq/L BUN 9 (8-26) mg/dL Creatinine 0.63 L (0.72-1.25) mg/dL Glucose 117 H (70-99) mg/dL Calcium 8.8 (8.6-10.8) mg/dL Total Bilirubin 0.3 (0.2-1.2) mg/dL AST 90 H (5-34) Units/L ALT 89 H (0-55) Units/L Alkaline Phosphatase 135 H (38-126) Units/L Albumin 2.5 L (3.5-5.0) g/dL - Attending Attestation I examined this patient and my medical decision-making was reviewed with the Resident Physician. I agree with the documented findings, disposition and treatment plan as described except to the extent set forth below.
[2017-06-05] MEDS ORDERED: Clinimix E 5%-15% SOLUTION 2,000 ML with MVI, adult with vitamin K 10 ML, Magnesium S... IVC SCH (17:00)
[2017-06-05] MEDS: *HR* OxyCODONE/APAP 5/325 TABLET PO PRN (19:24)
[2017-06-06] MEDS: MetroNIDAZOLE 500 MG/100 ML 500 MG/100 ML BAG IVPB SCH ×4 (00:44→23:37)
[2017-06-06] MEDS: Ondansetron 4 MG/2 ML VIAL IVP SCH ×7 (01:06→23:38)
[2017-06-06] MEDS: *HR* OxyCODONE/APAP 5/325 TABLET PO PRN ×4 (01:06→19:46)
[2017-06-06] MEDS: *HR* HYDROmorphone (PF) 1 MG/ML SYRINGE IVP PRN ×7 (03:51→22:24)
[2017-06-06] MEDS: Piperacillin/Tazobactam 3.375 GM in D5% in Water 50 ML IVPB SCH ×3 (03:51→19:45)
[2017-06-06] MEDS: *HR* Heparin 5,000 UNIT/ML VIAL SQ SCH ×2 (05:29→17:47)
[2017-06-06] MEDS ORDERED: Pantoprazole 40 MG VIAL IVP SCH (09:00)
[2017-06-06 09:35] LABS: BUN/Creatinine Ratio 15 (6-26); Blood Urea Nitrogen 11 mg/dL (8-26); Calcium 8.9 mg/dL (8.6-10.8); Carbon Dioxide 26 mEq/L (19-29); Chloride 102 mEq/L (98-109); Glucose 116 mg/dL (70-99); Magnesium 1.7 mg/dL (1.7-2.2); Osmolality,Calculated 282 (280-300); Phosphorous 4.1 mg/dL (2.3-4.7); Potassium 3.6 mEq/L (3.5-4.5); Sodium 136 mEq/L (136-145); eGFR For African Americans > 60; eGFR For Non-African Americans > 60
--- NOTE | 2017-06-06 13:40 | General Surgery Progress Note ---
<Gallito Ayoub - Last Filed: 06/06/17 13:44> Date of Encounter: 06/06/17 Time of Encounter: 07:45 - Assessment and Plan (1) Acute appendicitis with appendiceal abscess Current Visit: Yes Status: Acute Postoperative day 8 of 1# ileocecectomy and #2 drainage of pelvic abscess. Procedure performed on 05/29/[address] Khan. phlegmon was present in RLQ. Appendix was completely necrotic; involved base of cecum. Patient tolerated procedure well. On 06/02/17, acute abdominal series was performed due to patient complaining of nausea, vomiting, abdominal distention. X-ray revealed presence of postop ileus. NG tube was inserted; return of 600 mL of dark bilious material. Patient had several episodes of vomiting in the last 24 hours. Nausea and vomiting has since subsided. Plan: -Attempt PO pain meds. -Advance to full liquid diet. -Continue Reglan. -Continue IV antibiotics: Day 8 of Zosyn 3.375 g daily and day 9 of Flagyl 500 mg every 6 hours. -Incentive spirometry. (2) Postoperative ileus Current Visit: Yes Status: Acute NG tube has been removed. -Abdominal distention has subsided. -Normoactive bowel sounds in all 4 quadrants. -Advance to full liquid diet. (3) DVT prophylaxis Current Visit: Yes Status: Acute EPP CDs while in bed. -Ambulate at least 3 times a day with assistance. -Heparin 5000 SQ q12 Subjective Patient reports: feels better, still having pain, pain is less, nausea, vomiting Narrative: Patient was seen and examined at bedside this morning. Patient reports that he has vomited several times since yesterday. During his hallway ambulation, he was unable to make it to the end of the casas before vomiting. He states that he feels slightly better compared to yesterday. He has some residual nausea. His abdominal pain is improving. Objective Vital Signs - Last 8 Hours Temp Pulse Resp BP Pulse Ox 06/06/17 11:12 98.4 F 79 14 116/67 97 06/06/17 07:00 98.0 F 64 14 113/64 96 Intake and Output 06/06/17 06/06/17 06/06/17 00:59 07:59 15:59 Intake Total 300 / 300 Output Total 800 / 800 Balance -500 / -500 Intake: IV Fluids 100 / 100 Flagyl Premix 500 MG/100 ML 500 100 / 100 mg In 100 ml @ 100 mls/hr IVPB Q8HR [facility] Rx#:[id number] Zosyn 3.375 GM In Dextrose 5% ( ADD-[place]) 50 ML @ 12.5 mls/ hr IVPB Q8H [facility] Rx#:[id number] Oral 200 / 200 Output: Urine 600 / 600 Emesis 200 / 200 Other: Meal Percent of Meal Consumed Weight Blood Glucose* 141 Patient Weight 06/06/17 22:59 Weight 70.6 kg - General physical appearance well developed, well nourished, no distress - Neck Neck exam: no masses, trachea midline, no lymphadectomy - Respiratory normal expansion, normal respiratory effort, clear to auscultation - Cardiovascular Cardiovascular exam: Present: RRR, no murmurs/rubs/gallops - Abdomen Abdomen: Present: bowel sounds present, soft, tender - Incision Incision: Present: clean and dry, intact - Labs 06/05/17 03:26 06/06/17 08:57 Diabetes panel 06/06/17 Range/Units 08:57 Sodium 136 (136-145) mEq/L Potassium 3.6 (3.5-4.5) mEq/L Chloride 102 (98-109) mEq/L Carbon Dioxide 26 (19-29) mEq/L BUN 11 (8-26) mg/dL Creatinine 0.73 (0.72-1.25) mg/dL Glucose 116 H (70-99) mg/dL Calcium 8.9 (8.6-10.8) mg/dL Calcium panel 06/06/17 Range/Units 08:57 Calcium 8.9 (8.6-10.8) mg/dL Phosphorus 4.1 (2.3-4.7) mg/dL Pituitary panel 06/06/17 Range/Units 08:57 Sodium 136 (136-145) mEq/L Potassium 3.6 (3.5-4.5) mEq/L Chloride 102 (98-109) mEq/L Carbon Dioxide 26 (19-29) mEq/L BUN 11 (8-26) mg/dL Creatinine 0.73 (0.72-1.25) mg/dL Glucose 116 H (70-99) mg/dL Calcium 8.9 (8.6-10.8) mg/dL Adrenal panel 06/06/17 Range/Units 08:57 Sodium 136 (136-145) mEq/L Potassium 3.6 (3.5-4.5) mEq/L Chloride 102 (98-109) mEq/L Carbon Dioxide 26 (19-29) mEq/L BUN 11 (8-26) mg/dL Creatinine 0.73 (0.72-1.25) mg/dL Glucose 116 H (70-99) mg/dL Calcium 8.9 (8.6-10.8) mg/dL - VTE Documentation of Mechanical Device: Intermittent pneumatic compression device Consult Discharge Plan - Plan Referrals: Johnny Khan MD [Partnered Physician] - <Angie Seymour - Last Filed: 06/06/17 14:19> Date of Encounter: 06/06/17 - Assessment and Plan (1) Acute appendicitis with appendiceal abscess Current Visit: Yes Status: Acute tolerated clears, advance to fulls prn antiemetics po pain control OOB to chair with all meals ambulate, ok shower wbc wnl today (2) Moderate malnutrition Current Visit: Yes Status: Acute continue tpn until taking in adequate nutrition by mouth Subjective Patient reports: no new complaints, feels better, still having pain, pain is less, tolerating liquids well, flatus Objective Vital Signs - Last 8 Hours Temp Pulse Resp BP Pulse Ox 06/06/17 11:12 98.4 F 79 14 116/67 97 06/06/17 07:00 98.0 F 64 14 113/64 96 Intake and Output 06/06/17 06/06/17 06/06/17 00:59 07:59 15:59 Intake Total 300 / 300 Output Total 800 / 800 Balance -500 / -500 Intake: IV Fluids 100 / 100 Flagyl Premix 500 MG/100 ML 500 100 / 100 mg In 100 ml @ 100 mls/hr IVPB Q8HR [facility] Rx#:[id number] Zosyn 3.375 GM In Dextrose 5% ( ADD-[place]) 50 ML @ 12.5 mls/ hr IVPB Q8H [facility] Rx#:[id number] Oral 200 / 200 Output: Urine 600 / 600 Emesis 200 / 200 Other: Meal Percent of Meal Consumed Weight Blood Glucose* 141 Patient Weight 06/06/17 22:59 Weight 70.6 kg - General physical appearance well developed, well nourished, no distress - Eyes PERRL, normal ocular movement - ENT normal mucosa, normocephalic - Neck Neck exam: trachea midline - Respiratory normal expansion, clear to auscultation - Cardiovascular Cardiovascular exam: Present: RRR - Abdomen Abdomen: Present: bowel sounds present, soft, tender (minimal tenderness) - Incision Incision: Present: clean and dry, intact - Integumentary no rash, no growths - Neurologic CN 2-12 grossly intact - Musculoskeletal normal posture - Psychiatric oriented to time, oriented to person, oriented to place, speech is normal, memory intact - Labs 06/05/17 03:26 06/06/17 08:57 Diabetes panel 06/06/17 Range/Units 08:57 Sodium 136 (136-145) mEq/L Potassium 3.6 (3.5-4.5) mEq/L Chloride 102 (98-109) mEq/L Carbon Dioxide 26 (19-29) mEq/L BUN 11 (8-26) mg/dL Creatinine 0.73 (0.72-1.25) mg/dL Glucose 116 H (70-99) mg/dL Calcium 8.9 (8.6-10.8) mg/dL Calcium panel 06/06/17 Range/Units 08:57 Calcium 8.9 (8.6-10.8) mg/dL Phosphorus 4.1 (2.3-4.7) mg/dL Pituitary panel 06/06/17 Range/Units 08:57 Sodium 136 (136-145) mEq/L Potassium 3.6 (3.5-4.5) mEq/L Chloride 102 (98-109) mEq/L Carbon Dioxide 26 (19-29) mEq/L BUN 11 (8-26) mg/dL Creatinine 0.73 (0.72-1.25) mg/dL Glucose 116 H (70-99) mg/dL Calcium 8.9 (8.6-10.8) mg/dL Adrenal panel 06/06/17 Range/Units 08:57 Sodium 136 (136-145) mEq/L Potassium 3.6 (3.5-4.5) mEq/L Chloride 102 (98-109) mEq/L Carbon Dioxide 26 (19-29) mEq/L BUN 11 (8-26) mg/dL Creatinine 0.73 (0.72-1.25) mg/dL Glucose 116 H (70-99) mg/dL Calcium 8.9 (8.6-10.8) mg/dL - Attending Attestation I examined this patient and my medical decision-making was reviewed with the Resident Physician. I agree with the documented findings, disposition and treatment plan as described except to the extent set forth below.
[2017-06-06] MEDS ORDERED: Ondansetron ODT 4 MG TAB.RAPDIS SL PRN (14:20)
[2017-06-06] MEDS ORDERED: Clinimix E 5%-15% SOLUTION 2,000 ML with MVI, adult with vitamin K 10 ML, Magnesium S... IVC SCH (17:00)
[2017-06-07] MEDS: *HR* OxyCODONE/APAP 5/325 TABLET PO PRN ×5 (00:49→19:40)
[2017-06-07] MEDS: Piperacillin/Tazobactam 3.375 GM in D5% in Water 50 ML IVPB SCH ×3 (04:00→19:40)
[2017-06-07] MEDS: Ondansetron 4 MG/2 ML VIAL IVP SCH ×5 (04:02→19:40)
[2017-06-07 04:49] LABS: BUN/Creatinine Ratio 17 (6-26); Blood Urea Nitrogen 11 mg/dL (8-26); Calcium 8.3 mg/dL (8.6-10.8); Carbon Dioxide 25 mEq/L (19-29); Chloride 106 mEq/L (98-109); Glucose 82 mg/dL (70-99); Magnesium 1.6 mg/dL (1.7-2.2); Osmolality,Calculated 286 (280-300); Phosphorous 3.9 mg/dL (2.3-4.7); Potassium 3.5 mEq/L (3.5-4.5); Sodium 139 mEq/L (136-145); eGFR For African Americans > 60; eGFR For Non-African Americans > 60
[2017-06-07] MEDS: *HR* Heparin 5,000 UNIT/ML VIAL SQ SCH ×2 (05:38→18:17)
[2017-06-07] MEDS: *HR* HYDROmorphone (PF) 1 MG/ML SYRINGE IVP PRN ×4 (07:56→22:10)
[2017-06-07] MEDS: MetroNIDAZOLE 500 MG/100 ML 500 MG/100 ML BAG IVPB SCH ×2 (08:04→15:37)
--- NOTE | 2017-06-07 15:23 | General Surgery Progress Note ---
<JohannMarya Mock - Last Filed: 06/07/17 15:46> Date of Encounter: 06/07/17 Time of Encounter: 15:23 - Assessment and Plan (1) Acute appendicitis with appendiceal abscess Current Visit: Yes Status: Acute Postoperative day 8 of 1# ileocecectomy and #2 drainage of pelvic abscess. Procedure performed on 05/29/[address] Khan. phlegmon was present in RLQ. Appendix was completely necrotic; involved base of cecum. He had a postoperative ileus for which he was treated with an NG tube and bowel rest. His NG was DC on 06/03/2017. He denies BM but endorses flatus. He states his discomfort is well-managed. Active bowel sounds in all 4 quadrants. Plan: 1. Full liquid diet, advances tolerated. 2. Continue supportive care and discomfort management. 3. Add MiraLAX and Colace twice-daily until he has a bowel movement. We will then decrease to PRN. tinue Reglan 4. Continue TPN. If he has no vomiting, we will decrease TPN by 50% on 2016. 5. Continue IV antibiotics 8. Continue G.I. and DVT prophylaxis 9. Out of bed to chair at least TID and ambulate in the halls at least TID with assistance. 10. Continue incentive spirometry 10 times every hour while awake. (2) Postoperative ileus Current Visit: Yes Status: Acute Emesis 06/06/2017. Did tolerate full liquid diet for lunch. (3) Moderate malnutrition Current Visit: Yes Status: Acute Continue TPN management per nutrition. We'll continue to monitor. (4) Electrolyte abnormality Current Visit: Yes Status: Acute Replace electrolytes as indicated. Repeat a.m. labs. Continue to closely monitor. (5) DVT prophylaxis Current Visit: Yes Status: Acute EPCDs while in bed ambulate at least TID with assistance heparin injections 5000 units subacute b.i.d. Subjective Patient reports: no new complaints, feels better, still having pain, pain is less, tolerating liquids well, voiding w/o difficulty, flatus, no bowel movement , afebrile Objective Vital Signs - Last 8 Hours Temp Pulse Resp BP Pulse Ox 06/07/17 11:10 98.0 F 74 16 104/61 96 Intake and Output 06/06/17 06/07/17 06/07/17 23:59 07:59 15:59 Intake Total 2330 / 2330 100 / 100 680 / 680 Output Total 450 / 450 900 / 900 1375 / 1375 Balance 1880 / 1880 -800 / -800 -695 / -695 Intake: IV Fluids 200 / 200 100 / 100 200 / 200 Flagyl Premix 500 MG/100 ML 500 100 / 100 100 / 100 100 / 100 mg In 100 ml @ 100 mls/hr IVPB Q8HR [facility] Rx#:[id number] Zosyn 3.375 GM In Dextrose 5% ( 100 / 100 100 / 100 ADD-[place]) 50 ML @ 12.5 mls/ hr IVPB Q8H [facility] Rx#:[id number] Oral 120 / 120 0 / 0 480 / 480 Infusion Intake 2009 Output: Urine 450 / 450 900 / 900 1375 / 1375 Other: Meal Dinner Full Percent of Meal Consumed 50% 0% # Bowel Movements 0 0 Blood Glucose* 126 126 135 - General physical appearance no distress, moderate pain - Eyes normal ocular movement - ENT atraumatic, normocephalic - Neck Neck exam: trachea midline, no venous distension - Respiratory normal expansion, normal respiratory effort, clear to auscultation - Cardiovascular Cardiovascular exam: Present: RRR - Abdomen Abdomen: Present: bowel sounds present, soft, tender (Expected postoperative) Hernia: none - Incision Incision: Present: clean and dry, intact - Integumentary no rash, no growths - Neurologic normal coordination, normal sensation - Musculoskeletal normal gait, normal posture - Psychiatric oriented to time, oriented to person, oriented to place, speech is normal, memory intact - Labs 06/05/17 03:26 06/07/17 04:00 Diabetes panel 06/07/17 Range/Units 04:00 Sodium 139 (136-145) mEq/L Potassium 3.5 (3.5-4.5) mEq/L Chloride 106 (98-109) mEq/L Carbon Dioxide 25 (19-29) mEq/L BUN 11 (8-26) mg/dL Creatinine 0.65 L (0.72-1.25) mg/dL Glucose 82 (70-99) mg/dL Calcium 8.3 L (8.6-10.8) mg/dL Calcium panel 06/07/17 Range/Units 04:00 Calcium 8.3 L (8.6-10.8) mg/dL Phosphorus 3.9 (2.3-4.7) mg/dL Pituitary panel 06/07/17 Range/Units 04:00 Sodium 139 (136-145) mEq/L Potassium 3.5 (3.5-4.5) mEq/L Chloride 106 (98-109) mEq/L Carbon Dioxide 25 (19-29) mEq/L BUN 11 (8-26) mg/dL Creatinine 0.65 L (0.72-1.25) mg/dL Glucose 82 (70-99) mg/dL Calcium 8.3 L (8.6-10.8) mg/dL Adrenal panel 06/07/17 Range/Units 04:00 Sodium 139 (136-145) mEq/L Potassium 3.5 (3.5-4.5) mEq/L Chloride 106 (98-109) mEq/L Carbon Dioxide 25 (19-29) mEq/L BUN 11 (8-26) mg/dL Creatinine 0.65 L (0.72-1.25) mg/dL Glucose 82 (70-99) mg/dL Calcium 8.3 L (8.6-10.8) mg/dL - VTE Documentation of Mechanical Device: Intermittent pneumatic compression device Consult Discharge Plan - Plan Referrals: Johnny Khan MD [Partnered Physician] - <Johnny Khan - Last Filed: 06/07/17 17:38> Date of Encounter: 06/07/17 - Assessment and Plan (1) Acute appendicitis with appendiceal abscess Current Visit: Yes Status: Acute Objective Vital Signs - Last 8 Hours Temp Pulse Resp BP Pulse Ox 06/07/17 15:23 98.2 F 73 16 108/66 96 06/07/17 11:10 98.0 F 74 16 104/61 96 Intake and Output 06/07/17 06/07/17 06/07/17 07:59 15:59 23:59 Intake Total 350 / 350 1180 / 1180 1857 Output Total 900 / 900 1375 / 1375 Balance -550 / -550 -195 / -195 1857 Intake: IV Fluids 350 / 350 200 / 200 100 / 100 Intralipid 20% 250 ML @ 21 mls/ 250 / 250 hr IVPB DAILY@1700 [facility] Rx#: [id number] Flagyl Premix 500 MG/100 ML 500 100 / 100 100 / 100 100 / 100 mg In 100 ml @ 100 mls/hr IVPB Q8HR [facility] Rx#:[id number] Zosyn 3.375 GM In Dextrose 5% ( 100 / 100 ADD-[place]) 50 ML @ 12.5 mls/ hr IVPB Q8H [facility] Rx#:[id number] Oral 0 / 0 980 / 980 Infusion Intake 1758 / 1758 Output: Urine 900 / 900 1375 / 1375 Other: Meal Full Percent of Meal Consumed 0% # Bowel Movements 0 0 Blood Glucose* 126 135 115 - Labs 06/05/17 03:26 06/07/17 04:00 Diabetes panel 06/07/17 Range/Units 04:00 Sodium 139 (136-145) mEq/L Potassium 3.5 (3.5-4.5) mEq/L Chloride 106 (98-109) mEq/L Carbon Dioxide 25 (19-29) mEq/L BUN 11 (8-26) mg/dL Creatinine 0.65 L (0.72-1.25) mg/dL Glucose 82 (70-99) mg/dL Calcium 8.3 L (8.6-10.8) mg/dL Calcium panel 06/07/17 Range/Units 04:00 Calcium 8.3 L (8.6-10.8) mg/dL Phosphorus 3.9 (2.3-4.7) mg/dL Pituitary panel 06/07/17 Range/Units 04:00 Sodium 139 (136-145) mEq/L Potassium 3.5 (3.5-4.5) mEq/L Chloride 106 (98-109) mEq/L Carbon Dioxide 25 (19-29) mEq/L BUN 11 (8-26) mg/dL Creatinine 0.65 L (0.72-1.25) mg/dL Glucose 82 (70-99) mg/dL Calcium 8.3 L (8.6-10.8) mg/dL Adrenal panel 06/07/17 Range/Units 04:00 Sodium 139 (136-145) mEq/L Potassium 3.5 (3.5-4.5) mEq/L Chloride 106 (98-109) mEq/L Carbon Dioxide 25 (19-29) mEq/L BUN 11 (8-26) mg/dL Creatinine 0.65 L (0.72-1.25) mg/dL Glucose 82 (70-99) mg/dL Calcium 8.3 L (8.6-10.8) mg/dL - Attending Attestation I have personally performed a face to face evaluation on this patient. I have reviewed and agree with the care plan. History and Exam by me shows: The patient continues to struggle with postoperative ileus. 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 He was continuing to have pain. His bowel sounds are normal. White blood cell count is normal. He had some nausea and vomiting yesterday. We will continue supportive care until he is able to tolerate regular diet. Ambulation today. Johnny Khan MD FACS
[2017-06-07] MEDS ORDERED: Clinimix E 5%-15% SOLUTION 2,000 ML with MVI, adult with vitamin K 10 ML, Magnesium S... IVC SCH (17:00)
[2017-06-08] MEDS: Ondansetron 4 MG/2 ML VIAL IVP SCH ×3 (00:11→08:04)
[2017-06-08] MEDS: MetroNIDAZOLE 500 MG/100 ML 500 MG/100 ML BAG IVPB SCH ×2 (00:13→08:03)
[2017-06-08] MEDS: *HR* OxyCODONE/APAP 5/325 TABLET PO PRN ×4 (00:13→21:03)
[2017-06-08] MEDS: *HR* HYDROmorphone (PF) 1 MG/ML SYRINGE IVP PRN ×2 (01:44→05:27)
[2017-06-08] MEDS: Piperacillin/Tazobactam 3.375 GM in D5% in Water 50 ML IVPB SCH (03:16)
[2017-06-08 05:16] LABS: Basophils % 0.3 %; Eosinophils # 0.3 K/mcL (0.0-0.6); Eosinophils % 2.4 %; Hematocrit 34.9 % (37.5-50.1); Hemoglobin 11.4 g/dL (12.9-16.9); Immature Platelets 3.7 % (1.1-6.1); Lymphocytes # 1.6 K/mcL (0.6-4.6); Lymphocytes % 14.6 %; Mean Corpuscular HGB Conc 32.7 g/dL (31.6-35.5); Mean Corpuscular Hemoglobin 30.3 pg (28.0-33.3); Mean Corpuscular Volume 92.8 fL (83.0-100.0); Mean Platelet Volume 10.3 fL (9.4-12.4); Monocytes # 0.8 K/mcL (0.0-1.3); Monocytes % 7.2 %; Platelet Count 397 K/mcL (140-400); Red Blood Count 3.76 M/mcL (4.19-5.50); Red Cell Distribution Width 14.6 % (11.5-14.5); Segmented Neutrophils % 74.5 %
[2017-06-08] MEDS: *HR* Heparin 5,000 UNIT/ML VIAL SQ SCH ×2 (05:27→16:53)
[2017-06-08 05:48] LABS: Alanine Aminotransferase 45 Units/L (0-55); Albumin 2.7 g/dL (3.5-5.0); Albumin/Globulin Ratio 0.6 (1.1-2.2); Alkaline Phosphatase 148 Units/L (38-126); Aspartate Amino Transferase 23 Units/L (5-34); BUN/Creatinine Ratio 18 (6-26); Bilirubin,Total 0.2 mg/dL (0.2-1.2); Blood Urea Nitrogen 13 mg/dL (8-26); Calcium 9.3 mg/dL (8.6-10.8); Carbon Dioxide 24 mEq/L (19-29); Chloride 102 mEq/L (98-109); Globulin 4.9 g/dL (2.4-3.5); Glucose 130 mg/dL (70-99); Osmolality,Calculated 286 (280-300); Potassium 4.1 mEq/L (3.5-4.5); Total Protein 7.6 g/dL (6.0-8.3); eGFR For African Americans > 60; eGFR For Non-African Americans > 60
[2017-06-08 05:51] LABS: Sodium 137 mEq/L (136-145)
--- NOTE | 2017-06-08 10:46 | General Surgery Progress Note ---
<Marya Wills Emili - Last Filed: 06/08/17 11:07> Date of Encounter: 06/08/17 Time of Encounter: 10:46 - Assessment and Plan (1) Acute appendicitis with appendiceal abscess Current Visit: Yes Status: Acute Postoperative day 10 of 1# ileocecectomy and #2 drainage of pelvic abscess. Procedure performed on 05/29/[address] Khan. phlegmon was present in RLQ. Appendix was completely necrotic; involved base of cecum. He had a postoperative ileus for which he was treated with an NG tube and bowel rest. His NG was DC on 06/03/2017. He denies BM but endorses flatus; we are managing with PRN laxatives. IF no BM today by 1500, give suppository. He states his discomfort is well-managed. Active bowel sounds in all 4 quadrants. He denies nausea currently but states decreased appetite. Plan: 1. Regular diet with protein supplements. 2. Continue supportive care and discomfort management. 3. Continue MiraLAX and Colace twice-daily until he has a bowel movement. We will then decrease to PRN. Continue Reglan for 24 hours. 4. Wean TPN to off. Saline lock IV when TPN is stopped. 5. Stop IV antibiotics as he has completed 10 days course and his WBC is normalized. 8. Continue G.I. and DVT prophylaxis 9. Out of bed to chair at least TID and ambulate in the halls at least TID with assistance. 10. Continue incentive spirometry 10 times every hour while awake. 11. D/C planning in the next 24-48 hours pending clinical course. Reinforced with patient and bedside RN that he must ambulate in halls at least TID, sit in chair for all meals, and increase p.o. prior to d/c. At risk d/c needs given lack of resources. SW is following. (2) Postoperative ileus Current Visit: Yes Status: Resolved Emesis 06/06/2017. See above (3) Moderate malnutrition Current Visit: Yes Status: Acute Wean TPN management per nutrition. We'll continue to monitor. (4) Electrolyte abnormality Current Visit: Yes Status: Acute Replace electrolytes as indicated. Repeat a.m. labs. Continue to closely monitor. (5) DVT prophylaxis Current Visit: Yes Status: Acute EPCDs while in bed ambulate at least TID with assistance heparin injections 5000 units subacute b.i.d. Subjective Patient reports: no new complaints, pain is less, tolerating liquids well ( States decreased appetite), voiding w/o difficulty, flatus, no bowel movement, afebrile Objective Vital Signs - Last 8 Hours Temp Pulse Resp BP Pulse Ox 06/08/17 10:39 98.2 F 82 16 100/66 97 06/08/17 08:19 96 06/08/17 07:37 98.0 F 73 16 100/61 96 06/08/17 03:55 98.1 F 74 16 101/62 95 Intake and Output 06/07/17 06/08/17 06/08/17 23:59 07:59 15:59 Intake Total 2148 / 2148 400 / 400 740 / 740 Output Total 500 / 500 1050 / 1050 500 / 500 Balance 1648 / 1648 -650 / -650 240 / 240 Intake: IV Fluids 150 / 150 400 / 400 Intralipid 20% 250 ML @ 21 mls/ 250 / 250 hr IVPB DAILY@1700 [facility] Rx#: [id number] Magnesium Sulfate Premix 2gm/ 50 / 50 50mL 2 gm In 50 ml @ 48.077 mls /hr IVPB ONCE ONE Rx#: [id number] Flagyl Premix 500 MG/100 ML 500 100 / 100 100 / 100 mg In 100 ml @ 100 mls/hr IVPB Q8HR [facility] Rx#:[id number] Zosyn 3.375 GM In Dextrose 5% ( 50 / 50 ADD-[facility]) 50 ML @ 12.5 mls/ hr IVPB Q8H [facility] Rx#:[id number] Oral 240 / 240 0 / 0 740 / 740 Infusion Intake 1758 / 1758 Output: Urine 500 / 500 1050 / 1050 500 / 500 Other: Meal Breakfast Percent of Meal Consumed 50% # Voids 1 # Bowel Movements 0 0 Weight 70.8 kg Blood Glucose* 111 122 Patient Weight 06/08/17 23:59 Weight 70.8 kg - General physical appearance well developed, no distress - Eyes normal ocular movement - ENT atraumatic, normocephalic - Neck Neck exam: trachea midline, no venous distension - Respiratory normal expansion, normal respiratory effort, clear to auscultation - Cardiovascular Cardiovascular exam: Present: RRR, no murmurs/rubs/gallops - Abdomen Abdomen: Present: bowel sounds present, soft, tender (Expected postoperative) Hernia: none - Incision Incision: Present: clean and dry, intact - Integumentary no growths - Musculoskeletal normal gait, normal posture - Psychiatric oriented to time, oriented to person, oriented to place, speech is normal, memory intact - Labs 06/08/17 05:06 06/08/17 05:06 Diabetes panel 06/08/17 06/08/17 Range/Units 04:00 05:06 Sodium TNP 137 Potassium TNP 4.1 Chloride TNP 102 Carbon Dioxide TNP 24 BUN TNP 13 Creatinine TNP 0.74 Glucose TNP 130 H Calcium TNP 9.3 AST TNP 23 ALT TNP 45 Alkaline Phosphatase TNP 148 H Albumin TNP 2.7 L Calcium panel 06/08/17 06/08/17 Range/Units 04:00 05:06 Calcium TNP 9.3 Phosphorus TNP 4.0 Albumin TNP 2.7 L Pituitary panel 06/08/17 06/08/17 Range/Units 04:00 05:06 Sodium TNP 137 Potassium TNP 4.1 Chloride TNP 102 Carbon Dioxide TNP 24 BUN TNP 13 Creatinine TNP 0.74 Glucose TNP 130 H Calcium TNP 9.3 Adrenal panel 06/08/17 06/08/17 Range/Units 04:00 05:06 Sodium TNP 137 Potassium TNP 4.1 Chloride TNP 102 Carbon Dioxide TNP 24 BUN TNP 13 Creatinine TNP 0.74 Glucose TNP 130 H Calcium TNP 9.3 Total Bilirubin TNP 0.2 AST TNP 23 ALT TNP 45 Alkaline Phosphatase TNP 148 H Albumin TNP 2.7 L - VTE Documentation of Mechanical Device: Intermittent pneumatic compression device Consult Discharge Plan - Plan Referrals: Johnny Khan MD [Partnered Physician] - <Johnny Khan - Last Filed: 06/08/17 16:01> Date of Encounter: 06/08/17 - Assessment and Plan (1) Acute appendicitis with appendiceal abscess Current Visit: Yes Status: Acute Objective Vital Signs - Last 8 Hours Temp Pulse Resp BP Pulse Ox 06/08/17 14:20 97.6 F 84 16 119/75 99 06/08/17 10:39 98.2 F 82 16 100/66 97 06/08/17 08:19 96 Intake and Output 06/08/17 06/08/17 06/08/17 07:59 15:59 23:59 Intake Total 400 / 400 1220 / 1220 Output Total 1050 / 1050 1050 / 1050 Balance -650 / -650 170 / 170 Intake: IV Fluids 400 / 400 Intralipid 20% 250 ML @ 21 mls/ 250 / 250 hr IVPB DAILY@1700 [facility] Rx#: [id number] Flagyl Premix 500 MG/100 ML 500 100 / 100 mg In 100 ml @ 100 mls/hr IVPB Q8HR [facility] Rx#:[id number] Zosyn 3.375 GM In Dextrose 5% ( 50 / 50 ADD-[facility]) 50 ML @ 12.5 mls/ hr IVPB Q8H [facility] Rx#:[id number] Oral 0 / 0 1220 / 1220 Output: Urine 1050 / 1050 1050 / 1050 Other: Meal Full Percent of Meal Consumed 25% Stool Size Small Stool Consistency loose liquid Stool Color Green # Voids 1 # Bowel Movements 0 1 Weight 70.8 kg Blood Glucose* 122 113 Patient Weight 06/08/17 23:59 Weight 70.8 kg - Labs 06/08/17 05:06 06/08/17 05:06 Diabetes panel 06/08/17 06/08/17 Range/Units 04:00 05:06 Sodium TNP 137 Potassium TNP 4.1 Chloride TNP 102 Carbon Dioxide TNP 24 BUN TNP 13 Creatinine TNP 0.74 Glucose TNP 130 H Calcium TNP 9.3 AST TNP 23 ALT TNP 45 Alkaline Phosphatase TNP 148 H Albumin TNP 2.7 L Calcium panel 06/08/17 06/08/17 Range/Units 04:00 05:06 Calcium TNP 9.3 Phosphorus TNP 4.0 Albumin TNP 2.7 L Pituitary panel 06/08/17 06/08/17 Range/Units 04:00 05:06 Sodium TNP 137 Potassium TNP 4.1 Chloride TNP 102 Carbon Dioxide TNP 24 BUN TNP 13 Creatinine TNP 0.74 Glucose TNP 130 H Calcium TNP 9.3 Adrenal panel 06/08/17 06/08/17 Range/Units 04:00 05:06 Sodium TNP 137 Potassium TNP 4.1 Chloride TNP 102 Carbon Dioxide TNP 24 BUN TNP 13 Creatinine TNP 0.74 Glucose TNP 130 H Calcium TNP 9.3 Total Bilirubin TNP 0.2 AST TNP 23 ALT TNP 45 Alkaline Phosphatase TNP 148 H Albumin TNP 2.7 L - Attending Attestation I have personally performed a face to face evaluation on this patient. I have reviewed and agree with the care plan. History and Exam by me shows: The patient is seen and evaluated on the morning rounds with the repair manager. He is really made significant progress in the last 24 hours. He has had bowel movement. He is no longer nauseated. We will advance his diet and wean his TPN to off. If he is feeling well we will discharge him from the hospital tomorrow. He no longer requires intravenous antibiotics. Johnny Khan MD FACS
[2017-06-08] MEDS: Ketorolac 15 MG/ML VIAL IVP SCH ×2 (11:32→16:53)
[2017-06-08] MEDS ORDERED: *HR* HYDROmorphone (PF) 1 MG/ML SYRINGE IVP SCH (12:00)
[2017-06-09] MEDS: *HR* OxyCODONE/APAP 5/325 TABLET PO PRN ×3 (01:08→10:06)
[2017-06-09] MEDS: *HR* HYDROmorphone (PF) 1 MG/ML SYRINGE IVP PRN ×3 (03:11→13:23)
[2017-06-09] MEDS: *HR* Heparin 5,000 UNIT/ML VIAL SQ SCH (05:26)
[2017-06-09 10:49] VITALS: BP 102/66
--- NOTE | 2017-06-09 14:10 | Discharge Summary ---
<Marya Wills - Last Filed: 06/09/17 16:44> Date of Encounter: 06/09/17 Time of Encounter: 14:07 - Discharge Diagnosis (1) Acute appendicitis with appendiceal abscess Priority: Primary Status: Resolved (2) Postoperative ileus Priority: Primary Status: Resolved (3) Moderate malnutrition Priority: Secondary Status: Resolved (4) Electrolyte abnormality Priority: Secondary Status: Resolved (5) DVT prophylaxis Priority: Secondary Status: Resolved - Discharge Medications Prescriptions: Ibuprofen [Motrin] 800 mg PO Q8HR PRN #90 tablet PRN Reason: Pain Docusate [Colace] 100 mg PO BID #60 capsule OxyCODONE/APAP 5/325 [Percocet 5/325 MG] 1 each PO Q6H PRN #28 tablet PRN Reason: Pain Home Medications: Docusate [Colace] 100 mg PO BID #60 capsule 06/09/17 [Rx] Ibuprofen [Motrin] 800 mg PO Q8HR PRN #90 tablet 06/09/17 [Rx] OxyCODONE/APAP 5/325 [Percocet 5/325 MG] 1 each PO Q6H PRN #28 tablet 06/09/17 [ Rx] Allergies/Adverse Reactions: 3 Allergy/AdvReac Type Severity Reaction Status Date / Time No Known Allergies Allergy Verified 05/28/17 17:46 General Surgery Exam Initial Vital Signs Temp Pulse Resp BP Pulse Ox 98.1 F 93 16 106/70 99 05/28/17 17:42 05/28/17 17:42 05/28/17 17:42 05/28/17 17:42 05/28/17 17:42 Date of admission: 05/29/17 11:49 Primary care physician: PCP NONE Consults: 06/02/17 08:17 Consult to Invasive Line Access Team [CONS] Routine Reason for Consult: Picc Line Insertion Line Type: PICC PICC line indications: Parental nutrition 06/02/17 08:18 consult to compliance quality performance analyst [Consult to Nutrition] [CONS] Routine Comment: Total IVF (TPN &MIV) tpn goal Consulting Provider: NUTRITION Reason for Dietary Consult: TPN Start and Manage 06/04/17 14:[address] Appraiser [CONS] Routine Reason for SW Consult: Please re-evaluate for d/c needs while nuclear fuels reclamation engineer is at bedside Discharging clinician: Johnny Wills) Anticipated date of discharge: 06/09/17 - Patient Status Disposition: Home, Self-Care Condition: Fair Functional capacity at discharge: independent ambulation Overall status at discharge: patient is back to baseline - Discharge Instructions Instructions: Laparoscopic Appendectomy (DC) Follow Up With: Johnny Khan MD [Partnered Physician] - 06/22/17 10:00 am Forms: Work/School Release Additional Instructions: General Surgical Discharge Instructions 1. No pushing, pulling, or lifting greater than 15 lbs for 4 additional weeks. You may return to work on 06/14/2017 if your employer is able to accommodate lifting restrictions; otherwise, return to full duty on 07/05/2017. 2. You may shower beginning today, but no tub baths, soaking, or swimming for 2 weeks. 3. You may resume driving when you are off narcotics and are safe to react in a car. 4. Take ibuprofen every 8 hours if needed for discomfort. You can take Percocet if the ibuprofen does not relieve your discomfort. Take narcotics as directed. Do not take more narcotics then directed and do not share your narcotics with any other person. Do not drink alcohol while on narcotics. 5. Take stool softeners (Colace) or a water based laxative (Miralax) while taking narcotics. You may hold for loose stools. 6. Report any fevers greater than 100.5F, increase abdominal discomfort, drainage that looks like pus, increased redness or pain at the surgical site, or any vomiting. 7. Report any pain in the calves, shortness of breath, or rapid heartbeat. 8. Follow-up in the office as directed. 9. If you were prescribed antibiotics, do not stop them without talking to your provider. 10. Your follow-up appointment with Dr. Khan is 06/22/2017 at 10:00 am. Instrucciones generales de micha quirrgica 1. No empujar, tirar o levantar ms de 15 lbs por 4 semanas adicionales. Puede volver a trabajar el 06/14/2017 si weeks empleador puede acomodarse a las restricciones de levantamiento; de lo contrario, regrese a weeks servicio completo el 07/05/2017. 2. Puede ducharse a partir de hoy, [place] sin baeras, remojo o natacin dani 2 semanas. 3. Puede reanudar la conduccin cuando est fuera de los narcticos y es seguro reaccionar en un automvil. 4. [place] ibuprofeno cada 8 horas si es necesario para la incomodidad. Puede kisha Percocet si el ibuprofeno no ania weeks malestar. [place] narcticos segn las indicaciones. No tome ms narcticos que los indicados y no comparta susan narcticos con ninguna otra persona. No ron alcohol mientras kristin narcticos. 5. [place] ablandadores fecales (Colace) o un laxante a base de agua (Miralax) mientras kristin narcticos. Usted puede esperar para deposiciones sueltas. 6. Informe cualquier fiebre mayor de 100.5 F, aumente las molestias abdominales, drenaje que se ve ching pus, aumento del enrojecimiento o dolor en el sitio quirrgico o cualquier vmito. 7. Informe cualquier dolor en las pantorrillas, dificultad para respirar o latidos cardacos rpidos. 8. Seguimiento en la oficina segn las indicaciones. 9. Si te recetaron antibiticos, no los detengas sin consultar a tu proveedor. 10. Weeks bandar de seguimiento con el Dr. Khan es el a las 10:00 a.m. - Diet and Activity Activity: increase activity as tolerated Diet: advance to your usual diet - Hospital Course Hospital course: Mr. Malik is a 21 year old male resented on 05/28/2017 for complaints of abdominal pain and fevers. He was noted to have been recently discharged from the hospital for an apendiceal abscess that had been treated with antibiotics and a KARL drain (which was DC prior to his discharge). His WBC upon admission was elevated and a CAT scan completed which revealed recurrent collection in the pelvis consistent with an abscess. He was taken to the operating room on 05/29/2017 where he underwent an ileocecetomy, drainage of pelvic abscess with noted phlegmon present in the right lower quadrant, and necrotic appendix involving the base of the cecum. He developed a post operative ileus for which he was treated with an NG tube, TPN/Lipids, and bowel rest. The NG was d/c'd on 06/03/2017, he was given scheduled miralax and stool softener's. He completed a 10 day course of antibiotics which included Zosyn. He is ambulating and voiding without difficulty. He is having bowel movements and passing flatus. He continues to report feelings of decreased appetite however is tolerating a regular diet and liquids without nausea or vomiting. His vital signs are stable. He is afebrile and his surgical incisions are clean , dry, and intact. We will begin discharge planning with a follow-up in the office on 06/22/2017. - Time Spent with Patient Total time spent providing and/or coordinating discharge services: Labs on day of discharge: Labs from last 24 hours 06/08/17 15:29 POC Glucose 113 H - Impressions ITS Impressions Abdomen X-Ray 06/02/17 10:01 IMPRESSION: 1. New since the prior exam is proximal to mid small bowel moderate gaseous distention with multiple air-fluid levels and relative decompression distally. A distal small bowel partial versus developing obstruction cannot be excluded. 2. No evidence of perforation. D/ / 06/02/2017 11:23:06 Francisco Javier Zafar MD / oniel Interpreting Provider: Francisco Javier Zafar MD X-Ray 06/02/17 14:18 IMPRESSION: Nasogastric tube projects over the proximal stomach. Nonspecific bowel gas pattern, with disproportionate dilation of proximal small bowel. D/ / Jose Alonzo MD / Jose Alonzo MD Interpreting Provider: Jose Alonzo MD <Johnny Khan - Last Filed: 06/10/17 20:56> Date of Encounter: 06/09/17 - Discharge Diagnosis (1) Acute appendicitis with appendiceal abscess Status: Resolved General Surgery Exam Initial Vital Signs Temp Pulse Resp BP Pulse Ox 98.1 F 93 16 106/70 99 05/28/17 17:42 05/28/17 17:42 05/28/17 17:42 05/28/17 17:42 05/28/17 17:42 Date of admission: 05/29/17 11:49 Primary care physician: PCP NONE Consults: 06/02/17 08:17 Consult to Invasive Line Access Team [CONS] Routine Reason for Consult: Picc Line Insertion Line Type: PICC PICC line indications: Parental nutrition 06/02/17 08:18 consult to compliance quality performance analyst [Consult to Nutrition] [CONS] Routine Comment: Total IVF (TPN &MIV) tpn goal Consulting Provider: NUTRITION Reason for Dietary Consult: TPN Start and Manage 06/04/17 14:[address] Appraiser [CONS] Routine Reason for SW Consult: Please re-evaluate for d/c needs while nuclear fuels reclamation engineer is at bedside - Hospital Course Hospital course: Mr. Malik is a 21 year old male - Time Spent with Patient Total time spent providing and/or coordinating discharge services: - Impressions ITS Impressions Abdomen X-Ray 06/02/17 10:01 IMPRESSION: 1. New since the prior exam is proximal to mid small bowel moderate gaseous distention with multiple air-fluid levels and relative decompression distally. A distal small bowel partial versus developing obstruction cannot be excluded. 2. No evidence of perforation. D/ / 06/02/2017 11:23:06 Francisco Javier Zafar MD / oniel Interpreting Provider: Francisco Javier Zafar MD X-Ray 06/02/17 14:18 IMPRESSION: Nasogastric tube projects over the proximal stomach. Nonspecific bowel gas pattern, with disproportionate dilation of proximal small bowel. D/ / Jose Alonzo MD / Jose Alonzo MD Interpreting Provider: Jose Alonzo MD - Attending Attestation I have personally performed a face to face evaluation on this patient. I have reviewed and agree with the care plan. History and Exam by me shows: The patient is seen and evaluated on morning rounds. He is off antibiotics and afebrile. He is tolerating regular diet. He is ready for discharge. I will see him next week in the office. Johnny Benjamin MD FACS
== END 2017-06-09 17:20 | disposition home or self-care (01) | DRG 330 ==
LOC: EMEROO 16:57 → 3ANU 16:57
PROVIDERS: ADMIT Surgery; ATTEND Surgery